=== PATIENT | male | born 1935 | race Caucasian/White ===

== ENCOUNTER 2018-06-24 04:43 | Inpatient (IN) | payer MEDICARE ==
[2018-06-24] MEDS ORDERED: PNEUMONIA PROTOCOL UTILIZED 1 EACH MISC PO PRN (04:55)
[2018-06-24] MEDS ORDERED: SODIUM CHLORIDE 0.9% 1,000 ML IV ONE (05:09)
[2018-06-24] MEDS: SODIUM CHLORIDE 0.9% 1,000 ML IV SCH (05:12)
[2018-06-24] MEDS ORDERED: ALBUTEROL NEBULIZED 2.5 MG/3 ML INHALATION PRN (05:17)
[2018-06-24] MEDS ORDERED: VANCOMYCIN IV PER PHARMACY 1 EACH MISC MISCELLANE PRN (05:19)
[2018-06-24] MEDS ORDERED: LEVOFLOXACIN 750MG-D5W PMX 750 MG in DEXTROSE/WATER 1 150ML.BAG IVPB SCH (06:00)
[2018-06-24] MEDS ORDERED: VANCOMYCIN 1,000 MG in SODIUM CHLORIDE 0.9% 250 ML IVPB ONE (06:00)
[2018-06-24] MEDS ORDERED: DILTIAZEM DRIP BOLUS FROM BAG 1 MG SOLN IV ONE (06:07)
[2018-06-24] MEDS ORDERED: ENOXAPARIN 60 MG/0.6 ML SYRINGE SQ STA (06:09)
[2018-06-24] MEDS ORDERED: DILTIAZEM 50 MG in SODIUM CHLORIDE 0.9% 40 ML IV SCH (06:15)
--- NOTE | 2018-06-24 06:15 | ED ---
SOB HPI - General Source: EMS Mode of arrival: EMS Limitations: altered mental status (Dementia versus delirium) - History of Present Illness MD Complaint: shortness of breath Onset/Timin -: days(s) Known History Of: COPD Treatments Prior to Arrival: oxygen, bronchodilator, other (antibiotics) <Juan J العراقي - Last Filed: 06/24/18 06:15> <Fabian Rogel - Last Filed: 06/29/18 15:50> - General Chief Complaint: Shortness of Breath Stated Complaint: Pneumonia Time Seen by Provider: 06/24/18 04:48 - History of Present Illness Initial Comments: This patient is an 83-year-old man sent here as a transfer from [facility] to be admitted for bilateral pneumonia. The patient had been transferred there from medical [place]. He has history of COPD, and reportedly had developed respiratory distress over the course of the evening. The patient does appear to have either underlying dementia or delirium and is not giving useful history. He is not able to give duration of symptoms. He is mainly able answer only if couple of yes or no questions. Patient denies pain at the moment. (Juan J العراقي) - Related Data Home Medications Medication Instructions Recorded Confirmed ALPRAZolam [Xanax] 0.25 mg PO TID PRN 06/24/18 06/24/18 Acetaminophen with Codeine 1 tab PO Q4H PRN 06/24/18 06/24/18 [Tylenol w/codeine #3] Ammonium Lactate Lotion 1 applic TOPICAL HS 06/24/18 06/24/18 [Lac-Hydrin 12% Lotion] Atorvastatin [Lipitor] 40 mg PO HS 06/24/18 06/24/18 Budesonide [Pulmicort] 0.5 mg INHALATION RT-DAILY 06/24/18 06/24/18 Citalopram Hydrobromide [CeleXA] 20 mg PO DAILY 06/24/18 06/24/18 Clopidogrel [Plavix] 75 mg PO HS 06/24/18 06/24/18 Famotidine [Pepcid] 20 mg PO DAILY 06/24/18 06/24/18 Finasteride [Proscar] 5 mg PO DAILY 06/24/18 06/24/18 Furosemide [Lasix] 40 mg PO BID@0600,1200 06/24/18 06/24/18 Ipratropium-Albuterol Nebulize 3 ml INHALATION RT-QID 06/24/18 06/24/18 [Duoneb 0.5 mg-3 mg/3 ml Soln] Lactulose 20 gm PO BID@0800,2000 06/24/18 06/24/18 Lisinopril [Zestril] 2.5 mg PO DAILY 06/24/18 06/24/18 Metoprolol Succinate [Toprol XL] 25 mg PO DAILY 06/24/18 06/24/18 Mirtazapine [Remeron] 15 mg PO HS 06/24/18 06/24/18 Montelukast [Singulair] 10 mg PO HS 06/24/18 06/24/18 Spironolactone [Aldactone] 25 mg PO DAILY 06/24/18 06/24/18 Tamsulosin [Flomax] 0.4 mg PO DAILY 06/24/18 06/24/18 Allergies Allergy/AdvReac Type Severity Reaction Status Date / Time No Known Allergies Allergy Verified 06/24/18 08:46 Review of Systems ROS Other: All systems not noted in ROS Statement are negative. Limitations: ROS unobtainable due to patients medical condition (Dementia versus delirium) <Juan J العراقي - Last Filed: 06/24/18 06:15> ROS Other: All systems not noted in ROS Statement are negative. <Fabian Rogel - Last Filed: 06/29/18 15:50> ROS Statement: Those systems with pertinent positive or pertinent negative responses have been documented in the HPI. Past Medical History Past Medical History: Coronary Artery Disease (CAD), Heart Failure, COPD, CVA/ TIA, Hyperlipidemia, Hypertension, Renal Disease Additional Past Medical History / Comment(s): Malnutrition, hyponatremia History of Any Multi-Drug Resistant Organisms: None Reported Past Surgical History: No Surgical Hx Reported Past Psychological History: Anxiety, Depression Smoking Status: Unknown if ever smoked Past Alcohol Use History: Unable to Obtain Past Drug Use History: Unable to Obtain <Juan J العراقي - Last Filed: 06/24/18 06:15> - Past Family History Mother Family Medical History: Osteoarthritis (OA) Additional Family Medical History / Comment(s): at 86 from CVA Father Family Medical History: No Reported History Additional Family Medical History / Comment(s): Father young in a construction accident. <Fabian Rogel [place] - Last Filed: 06/29/18 15:50> General Exam Limitations: language barrier General appearance: alert, in distress, cachectic Head exam: Present: atraumatic, normocephalic Eye exam: Present: normal appearance, PERRL. Absent: scleral icterus, conjunctival injection ENT exam: Present: mucous membranes dry Neck exam: Present: normal inspection Respiratory exam: Present: rales, rhonchi. Absent: respiratory distress, wheezes, stridor, accessory muscle use, decreased breath sounds Cardiovascular Exam: Present: regular rate, normal rhythm, normal heart sounds. Absent: systolic murmur, diastolic murmur, rubs, gallop GI/Abdominal exam: Present: soft. Absent: distended, tenderness, guarding, rebound, mass exam: Present: other (Berry catheter present) Extremities exam: Present: normal inspection, normal capillary refill. Absent: pedal edema Neurological exam: Present: altered, CN II-XII intact. Absent: oriented X3 Skin exam: Present: warm, dry, intact, normal color. Absent: rash <Juan J العراقي - Last Filed: 06/24/18 06:15> Vital Signs 06/24/18 06/24/18 06/24/18 04:45 04:49 04:50 Temperature 98.5 F Pulse Rate 78 77 78 Respiratory 20 29 H 28 H Rate Blood Pressure 90/47 O2 Sat by Pulse 95 94 L 95 Oximetry 06/24/18 06/24/18 06/24/18 05:00 05:06 05:10 Temperature Pulse Rate 75 76 Respiratory 26 H 20 30 H Rate Blood Pressure 90/47 90/47 O2 Sat by Pulse 95 94 L Oximetry 06/24/18 06/24/18 06/24/18 05:20 05:30 05:40 Temperature Pulse Rate 72 74 72 Respiratory 27 H 22 28 H Rate Blood Pressure 90/47 90/47 90/47 O2 Sat by Pulse 93 L 100 100 Oximetry 06/24/18 06/24/18 06/24/18 05:50 06:00 06:10 Temperature Pulse Rate 105 H 121 H 138 H Respiratory 22 24 37 H Rate Blood Pressure 90/47 90/47 O2 Sat by Pulse 92 L Oximetry 1006/24/18 06/24/18 06:20 06:30 06:40 Temperature Pulse Rate 120 H 125 H 142 H Respiratory 27 H 28 H 27 H Rate Blood Pressure 90/47 90/47 90/47 O2 Sat by Pulse 91 L 91 L 91 L Oximetry 06/24/18 06/24/18 06/24/18 06:50 06:55 07:00 Temperature Pulse Rate 130 H 112 H 152 H Respiratory 26 H 18 21 Rate Blood Pressure 90/47 83/46 77/58 O2 Sat by Pulse 89 L 91 L 90 L Oximetry 06/24/18 06/24/18 06/24/18 07:10 07:20 07:24 Temperature Pulse Rate 131 H 112 H Respiratory 27 H 18 Rate Blood Pressure 83/46 89/59 89/59 O2 Sat by Pulse 91 L 92 L Oximetry 06/24/18 06/24/18 06/24/18 07:30 07:35 07:40 Temperature Pulse Rate 141 H 129 H 138 H Respiratory 17 30 H Rate Blood Pressure 89/59 88/51 O2 Sat by Pulse 93 L 94 L Oximetry 06/24/18 06/24/18 06/24/18 08:18 10:00 10:13 Temperature Pulse Rate 138 H Respiratory 30 H 16 Rate Blood Pressure 88/51 94/60 93/53 O2 Sat by Pulse 94 L 96 97 Oximetry 06/24/18 06/24/18 06/24/18 10:20 10:38 11:30 Temperature Pulse Rate 69 Respiratory 22 Rate Blood Pressure 113/53 78/54 108/91 O2 Sat by Pulse 96 100 Oximetry Procedures - Central Line Placement Left IJ Consent Obtained: emergent situation Time Out Performed: Yes Patient Placed on Monitor/Pulse Ox: Yes MD Prep: mask, gown, gloves Central Line Prep: Povidone-Iodine 1% Local Anesthesia Used: Lidocaine 1%, with Epi Ultrasound Used for Placement: Yes Central Line Lumen Inserted: triple Bloods Obtained for Lab: No Central Line Position: good blood return Dressing Applied: Tegaderm Post Procedure X-Ray: tip of catheter in good position Patient Tolerated Procedure: well Complications: none <Fabian Rogel - Last Filed: 06/29/18 15:50> Medical Decision Making <Juan J العراقي - Last Filed: 06/24/18 06:15> - Lab Data Result diagrams: 06/29/18 04:50 06/29/18 04:50 <Fabian Rogel - Last Filed: 06/29/18 15:50> - Medical Decision Making Patient's transfer paperwork reviewed. Case discussed with Dr. Brandie swann who is listed as his PCP. He requests admission to Dr. Zamudio, as well as consult for Dr. Ferrer. Admission orders are written. The patient is pending transfer to a room when he did develop atrial fibrillation with a rapid ventricular rate. An additional cardiology consultation will be obtained. Started on Cardizem for rate control. (Juan J العراقي) Patient was admitted awaiting disposition to floor. Patient was admitted for bilateral pneumonia. While patient was in the emergency department awaiting bed patient became hypotensive. Patient's initial vital signs on arrival show blood pressure 89/59. Patient was not hypoxic. He didn't went into rapid tachycardia dysrhythmia. Monitor appeared to be consistent with atrial fibrillation with RVR. He was placed on Cardizem drip by previous physician for rate control. He did not receive infusion however did get a small bolus. Cardizem was DC'd. Cardizem was DC'd likely because patient stated rapid ventricular rate in order to maintain adequate perfusion in the setting of infection. Patient was moved into resuscitation bay. Patient given 1 L of fluid to complete the 30 mL per KG bolus of IV fluids. Patient continued to be hypotensive despite fluid resuscitation. Dribbling catheter was placed in the left internal jugular in anticipation for pressor administration. Patient disposition changed to intensive care unit. Discussed patient case with Dr. Mccloud who requests Dr. HIGH placed on consult for critical care. Suspicion case with Dr. Carver who is aware patient. Patient to be disposition to intensive care unit (Fabian Rogel) Disposition <Juan J العراقي - Last Filed: 06/24/18 06:15> Decision Time: 15:50 <Fabian Rogel - Last Filed: 06/29/18 15:50> Clinical Impression: Septic shock Disposition: ADMITTED IP TO THIS HOSP Condition: Serious
[2018-06-24] MEDS: IPRATROPIUM-ALBUTEROL 3 ML NEB INHALATION SCH ×4 (07:20→19:51)
[2018-06-24] MEDS ORDERED: PIPERACILLIN-TAZOBACTAM 3.375 GM in DEXTROSE/WATER 1 50ML.BAG IVPB SCH (08:00)
[2018-06-24 09:04] LABS: ABG Base Excess 3.9 mmol/L; ABG HCO3 30 mmol/L (21-25); ABG Oxygen Saturation 92.4 % (94-97); ABG PCO2 58 mmHg (35-45); ABG PH 7.32 (7.35-7.45); ABG PO2 68 mmHg (83-108); ABG TCO2 32 mmol/L (19-24)
--- NOTE | 2018-06-24 09:09 | XR ---
EXAMINATION TYPE: XR chest 1V DATE OF EXAM: 06/24/2018 COMPARISON: NONE HISTORY: Pain TECHNIQUE: Single frontal view of the chest is obtained. FINDINGS: Bilateral consolidation and pleural effusion. Hyperinflation suggests COPD. Appears to be hyperdensity along the vertebral column. Calcified granuloma right upper lobe. Calcified lymph nodes are noted. IMPRESSION: 1. Diffuse COPD with bilateral consolidation and pleural effusion. There is either contrast or calcif ication overlying the mid vertebral column correlate clinically. Recommend follow-up PA and lateral v iews of the chest..
[2018-06-24] MEDS: NOREPINEPHRINE 16 MG in SODIUM CHLORIDE 0.9% 250 ML IV SCH ×2 (09:32→13:36)
--- NOTE | 2018-06-24 10:12 | P.CNPUL ---
History of Present Illness Consult date: 06/24/18 Reason for consult: dyspnea, cough, COPD, hypoxemia, pneumonia Chief complaint: Pneumonia, severe hypoxia, hypotension History of present illness: 83-year-old male who is a resident of extended care facility admitted a large has baseline problems associated with chronic hypoxic respiratory failure end- stage lung disease and severe COPD emphysema patient was noted to be more short of breath and has a confusion and altered mental status and was eventually transferred to [facility] emergency department where he was seen eval reexamined subsequently transferred to the emergency department at [facility] on arrival he was hypotensive treated require crystalloid challenge followed by a vasopressors a central line has been placed by the emergency room physician patient is being placed on the 10 mics of levo fed his blood pressure is now 90/ 60 patient's saturation is 98% on 6 L oxygen, he is awake but the does not give any detailed history he has obvious short leg shortness of breath I reviewed his arterial blood gas performed stat basis he has component of hypercapnia and respiratory acidosis, his chest x-ray revealed COPD-like process of bilateral consolidation along with pleural effusion, pleural effusion appears to be small consolidation is mostly on the basal area central line in his left internal jugular, patient had an episode of A. fib with rapid ventricular response however responded with Cardizem drip and is back to sinus rhythm Review of Systems ROS unobtainable: due to mental status Past Medical History Past Medical History: Asthma, Coronary Artery Disease (CAD), Heart Failure, COPD , CVA/TIA, Hyperlipidemia, Hypertension, Prostate Disorder, Renal Disease, Skin Disorder Additional Past Medical History / Comment(s): Daughter, Mandi, states pt recently admitted to [facility] with abdominal distention/ascities/hematuria and had peck catheter placed. Other Hx: Asthma, bronchitis, pulmonary fibrosis, sinus problems, O2 3l/nc, AAA low aorta, PMH documents CVA but ankita is unsure if he ever had one, recent shaking-was to have neuro work up, BPH, CKD stage IV, psoriasis, protein calorie malnutrition, hyponatremia. History of Any Multi-Drug Resistant Organisms: None Reported Past Surgical History: Ear Surgery, Heart Catheterization With Stent Additional Past Surgical History / Comment(s): 2010 PCI with stent to cx, bilateral cataract removals, L eye surgery for detached retina, L ear surgery for meniere's disease, colonoscopy, L knee arthroscopy. Additional Past Anesthesia/Blood Transfusion Reaction / Comment(s): [facility] documents respiratory difficulty post operatively Date of Last Stent Placement:: 2010 Smoking Status: Former smoker - Past Family History Mother Family Medical History: Osteoarthritis (OA) Father Family Medical History: No Reported History Additional Family Medical History / Comment(s): Father young in a construction accident. Medications and Allergies Home Medications Medication Instructions Recorded Confirmed Type ALPRAZolam [Xanax] 0.25 mg PO TID PRN 06/24/18 06/24/18 History Acetaminophen with Codeine 1 tab PO Q4H PRN 06/24/18 06/24/18 History [Tylenol w/codeine #3] Ammonium Lactate Lotion 1 applic TOPICAL HS 06/24/18 06/24/18 History [Lac-Hydrin 12% Lotion] Atorvastatin [Lipitor] 40 mg PO HS 06/24/18 06/24/18 History Budesonide [Pulmicort] 0.5 mg INHALATION RT-DAILY 06/24/18 06/24/18 History Citalopram Hydrobromide [CeleXA] 20 mg PO DAILY 06/24/18 06/24/18 History Clopidogrel [Plavix] 75 mg PO HS 06/24/18 06/24/18 History Famotidine [Pepcid] 20 mg PO DAILY 06/24/18 06/24/18 History Finasteride [Proscar] 5 mg PO DAILY 06/24/18 06/24/18 History Furosemide [Lasix] 40 mg PO BID@0600,1200 06/24/18 06/24/18 History Ipratropium-Albuterol Nebulize 3 ml INHALATION RT-QID 06/24/18 06/24/18 History [Duoneb 0.5 mg-3 mg/3 ml Soln] Lactulose 20 gm PO BID@0800,2000 06/24/18 06/24/18 History Lisinopril [Zestril] 2.5 mg PO DAILY 06/24/18 06/24/18 History Metoprolol Succinate [Toprol XL] 25 mg PO DAILY 06/24/18 06/24/18 History Mirtazapine [Remeron] 15 mg PO HS 06/24/18 06/24/18 History Montelukast [Singulair] 10 mg PO HS 06/24/18 06/24/18 History Spironolactone [Aldactone] 25 mg PO DAILY 06/24/18 06/24/18 History Tamsulosin [Flomax] 0.4 mg PO DAILY 06/24/18 06/24/18 History Allergies Allergy/AdvReac Type Severity Reaction Status Date / Time No Known Allergies Allergy Verified 06/24/18 08:46 Physical Exam Vitals: Vital Signs Temp Pulse Resp BP Pulse Ox 06/24/18 08:18 138 H 30 H 88/51 94 L 06/24/18 07:40 138 H 30 H 88/51 94 L 06/24/18 07:35 129 H 06/24/18 07:30 141 H 17 89/59 93 L 06/24/18 07:24 89/59 06/24/18 07:20 112 H 18 89/59 92 L 06/24/18 07:10 131 H 27 H 83/46 91 L 06/24/18 07:00 152 H 21 77/58 90 L 06/24/18 06:55 112 H 18 83/46 91 L 06/24/18 06:50 130 H 26 H 90/47 89 L 06/24/18 06:40 142 H 27 H 90/47 91 L 06/24/18 06:30 125 H 28 H 90/47 91 L 06/24/18 06:20 120 H 27 H 90/47 91 L 06/24/18 06:10 138 H 37 H 90/47 92 L 06/24/18 06:00 121 H 24 06/24/18 05:50 105 H 22 90/47 06/24/18 05:40 72 28 H 90/47 100 06/24/18 05:30 74 22 90/47 100 06/24/18 05:20 72 27 H 90/47 93 L 06/24/18 05:10 76 30 H 90/47 94 L 06/24/18 05:06 20 06/24/18 05:00 75 26 H 90/47 95 06/24/18 04:50 78 28 H 95 06/24/18 04:49 77 29 H 94 L 06/24/18 04:45 98.5 F 78 20 90/47 95 Intake and Output 06/23/18 06/24/18 06/24/18 22:59 06:59 14:59 Other: Weight 49.2 kg - Constitutional General appearance: cooperative, disheveled, mild distress - EENT Eyes: EOMI, PERRLA, poor dentition, normal appearance ENT: hard of hearing, normal oropharynx Ears: bilateral: normal - Neck Neck: normal ROM Carotids: bilateral: upstroke normal Thyroid: bilateral: normal size - Respiratory Respiratory: bilateral: diminished, dullness (Bilateral basis less than one fourth of the lung), rales (Crackles at the bases), rhonchi (Expiratory), wheezing (Bilateral expiratory), prolonged expiration, negative: prolonged inspiration, other - Cardiovascular Rhythm: regular Heart sounds: normal: S1, S2 - Gastrointestinal General gastrointestinal: soft - Neurologic Neurologic: CNII-XII intact - Musculoskeletal Musculoskeletal: generalized weakness, strength equal bilaterally - Psychiatric Psychiatric: A&O x's 3 Very slow to respond Results - Laboratory Findings ABG ABG pH 7.32 (7.35-7.45) L 06/24/18 08:55 ABG pCO2 58 mmHg (35-45) H 06/24/18 08:55 ABG pO2 68 mmHg (83-108) L 06/24/18 08:55 ABG O2 Saturation 92.4 % (94-97) L 06/24/18 08:55 Abnormal lab findings: Abnormal Labs 06/24/18 08:55 ABG pH 7.32 L ABG pCO2 58 H ABG pO2 68 L ABG HCO3 30 H ABG Total CO2 32 H ABG O2 Saturation 92.4 L - Diagnostic Findings Chest x-ray: report reviewed, image reviewed Assessment and Plan Assessment: Bilateral pneumonia Severe sepsis associated with bilateral pneumonia and septic shock Evaluated for influenza pneumonia Altered mental status multifactorial process Hypercapnic hypoxic respiratory failure acute on chronic A. fib with rapid ventricular response likely related to above Advanced dementia and Alzheimer's disease Plan: Aggressive rehydration Vasopressors Broad spectrum antibiotics Breathing treatments IV steroids DVT and peptic ulcer disease prophylaxis Repeat labs x-rays Further recommendations pending plan of care as per clinical response of the patient Critical care time spent 60 minutes Time with Patient: Greater than 30
[2018-06-24] MEDS ORDERED: PANTOPRAZOLE 40 MG/10 ML VIAL IVP SCH (10:30)
[2018-06-24 10:59] LABS: Calcium 7.9 mg/dL (8.4-10.2); Potassium 3.7 mmol/L (3.5-5.1)
--- NOTE | 2018-06-24 11:10 | XR ---
EXAMINATION TYPE: XR chest 1V DATE OF EXAM: 06/24/2018 COMPARISON: 06/14/2018 HISTORY: Pneumonia. Shortness of breath. Follow-up exam. TECHNIQUE: Single frontal view of the chest is obtained. FINDINGS: There is pulmonary hyperinflation compatible with underlying COPD with confluent bibasilar opacities similar to the prior. Bilateral calcified granulomas are redemonstrated. Cardiomediastinal silhouette is elongated and within normal limits. Left-sided internal jugular central venous cathete r terminates in the cavoatrial junction. Calcified mediastinal granulomas are also seen. There are de generative changes of the shoulders and thoracic spine that appear moderate in degree. IMPRESSION: Stable exam from the prior with bibasilar opacities superimposed upon COPD. Findings are suspicious for multifocal pneumonia given their confluence.
--- NOTE | 2018-06-24 11:18 | P.CRDCN ---
History of Present Illness Consult date: 06/24/18 Chief complaint: Shortness of breath/change in mental status History of present illness: The patient is an 83-year-old gentleman who was transferred from [facility] to [facility] after he was diagnosed with bilateral pneumonia at [facility]. Currently the patient is on BiPAP and he is confused and poor historian and the history was taken mainly from the chart as well as from the nurse taking care of the patient. The patient does have an extensive past medical history consistent off advanced chronic obstructive pulmonary disease as well as chronic respiratory failure and he resides at an extended care facility. Beside that he does have underlying dementia, coronary artery disease, hypertension, and dyslipidemia. He was quite more short of breath at the [facility] care facility and he was also having change in mental status as well as delirium. No indication of any fever or chills. No indication of any cough. He was brought to the emergency room at [facility] where the chest x-ray showed bilateral pneumonia and then he was transferred here. In the emergency room here, the patient was found to be in A. fib with RVR and also he was hypotensive. He was started on vasopressors was Levophed and he continues to be on Levothroid at this point. He was converted to normal sinus mechanism and currently his heart rate has been in the 70s. The chest x-ray from here revealed findings consistent with COPD with bilateral pleural effusion. Beside that, the initial EKG showed atrial fibrillation with RVR and the subsequent EKG showed normal sinus mechanism. There is no indication of any history of atrial fibrillation in the chart and also the patient was not receiving any oral anticoagulation as an outpatient. The patient is in process of being transferred to the intensive care unit, currently the patient is in the emergency room. Currently he is on Cardizem IV which I am going to [place]. I will start the patient on amiodarone with bolus and drip. Start the patient on heparin IV as well. Obtain an echocardiogram was Doppler. Continue following up with him. Past Medical History Past Medical History: Asthma, Coronary Artery Disease (CAD), Heart Failure, COPD , CVA/TIA, Hyperlipidemia, Hypertension, Prostate Disorder, Renal Disease, Skin Disorder Additional Past Medical History / Comment(s): Daughter, Mandi, states pt recently admitted to [facility] with abdominal distention/ascities/hematuria and had peck catheter placed. Other Hx: Asthma, bronchitis, pulmonary fibrosis, sinus problems, O2 3l/nc, AAA low aorta, PMH documents CVA but ankita is unsure if he ever had one, recent shaking-was to have neuro work up, BPH, CKD stage IV, psoriasis, protein calorie malnutrition, hyponatremia. History of Any Multi-Drug Resistant Organisms: None Reported Past Surgical History: Ear Surgery, Heart Catheterization With Stent Additional Past Surgical History / Comment(s): 2010 PCI with stent to cx, bilateral cataract removals, L eye surgery for detached retina, L ear surgery for meniere's disease, colonoscopy, L knee arthroscopy. Additional Past Anesthesia/Blood Transfusion Reaction / Comment(s): PMH documents respiratory difficulty post operatively Date of Last Stent Placement:: 2010 Smoking Status: Former smoker - Past Family History Mother Family Medical History: Osteoarthritis (OA) Father Family Medical History: No Reported History Additional Family Medical History / Comment(s): Father young in a construction accident. Medications and Allergies Home Medications Medication Instructions Recorded Confirmed Type ALPRAZolam [Xanax] 0.25 mg PO TID PRN 06/24/18 06/24/18 History Acetaminophen with Codeine 1 tab PO Q4H PRN 06/24/18 06/24/18 History [Tylenol w/codeine #3] Ammonium Lactate Lotion 1 applic TOPICAL HS 06/24/18 06/24/18 History [Lac-Hydrin 12% Lotion] Atorvastatin [Lipitor] 40 mg PO HS 06/24/18 06/24/18 History Budesonide [Pulmicort] 0.5 mg INHALATION RT-DAILY 06/24/18 06/24/18 History Citalopram Hydrobromide [CeleXA] 20 mg PO DAILY 06/24/18 06/24/18 History Clopidogrel [Plavix] 75 mg PO HS 06/24/18 06/24/18 History Famotidine [Pepcid] 20 mg PO DAILY 06/24/18 06/24/18 History Finasteride [Proscar] 5 mg PO DAILY 06/24/18 06/24/18 History Furosemide [Lasix] 40 mg PO BID@0600,1200 06/24/18 06/24/18 History Ipratropium-Albuterol Nebulize 3 ml INHALATION RT-QID 06/24/18 06/24/18 History [Duoneb 0.5 mg-3 mg/3 ml Soln] Lactulose 20 gm PO BID@0800,199906/24/18 06/24/18 History Lisinopril [Zestril] 2.5 mg PO DAILY 06/24/18 06/24/18 History Metoprolol Succinate [Toprol XL] 25 mg PO DAILY 06/24/18 06/24/18 History Mirtazapine [Remeron] 15 mg PO HS 06/24/18 06/24/18 History Montelukast [Singulair] 10 mg PO HS 06/24/18 06/24/18 History Spironolactone [Aldactone] 25 mg PO DAILY 06/24/18 06/24/18 History Tamsulosin [Flomax] 0.4 mg PO DAILY 06/24/18 06/24/18 History Allergies Allergy/AdvReac Type Severity Reaction Status Date / Time No Known Allergies Allergy Verified 06/24/18 08:46 Physical Exam Vitals: Vital Signs Temp Pulse Resp BP Pulse Ox 06/24/18 10:38 69 22 78/54 100 06/24/18 10:20 113/53 96 06/24/18 10:13 16 93/53 97 06/24/18 10:00 94/60 96 06/24/18 08:18 138 H 30 H 88/51 94 L 06/24/18 07:40 138 H 30 H 88/51 94 L 06/24/18 07:35 129 H 06/24/18 07:30 141 H 17 89/59 93 L 06/24/18 07:24 89/59 06/24/18 07:20 112 H 18 89/59 92 L 06/24/18 07:10 131 H 27 H 83/46 91 L 06/24/18 07:00 152 H 21 77/58 90 L 06/24/18 06:55 112 H 18 83/46 91 L 06/24/18 06:50 130 H 26 H 90/47 89 L 06/24/18 06:40 142 H 27 H 90/47 91 L 06/24/18 06:30 125 H 28 H 90/47 91 L 06/24/18 06:20 120 H 27 H 90/47 91 L 06/24/18 06:10 138 H 37 H 90/47 92 L 06/24/18 06:00 121 H 24 06/24/18 05:50 105 H 22 90/47 06/24/18 05:40 72 28 H 90/47 100 06/24/18 05:30 74 22 90/47 100 06/24/18 05:20 72 27 H 90/47 93 L 06/24/18 05:10 76 30 H 90/47 94 L 06/24/18 05:06 20 06/24/18 05:00 75 26 H 90/47 95 06/24/18 04:50 78 28 H 95 06/24/18 04:49 77 29 H 94 L 06/24/18 04:45 98.5 F 78 20 90/47 95 Intake and Output 06/23/18 06/24/18 06/24/18 22:59 06:59 14:59 Other: Weight 49.2 kg - Constitutional General appearance: mild distress - Respiratory Respiratory: bilateral: diminished - Cardiovascular Rhythm: regular Heart sounds: normal: S1, S2 Results 06/24/18 07:31 Comprehensive Metabolic Panel 06/24/18 Range/Units 07:31 Sodium 143 (137-145) mmol/L Potassium 3.7 (3.5-5.1) mmol/L Chloride 106 (98-107) mmol/L Carbon Dioxide 29 (22-30) mmol/L BUN 78 H (9-20) mg/dL Creatinine 1.38 H (0.66-1.25) mg/dL Glucose 148 H (74-99) mg/dL Calcium 7.9 L (8.4-10.2) mg/dL Current Medications Generic Name Dose Route Start Last Admin Trade Name Freq PRN Reason Stop Dose Admin Albuterol Sulfate 2.5 mg 06/24/18 05:17 Ventolin Nebulized INHALATION RT-Q4H PRN Shortness Of Breath Or Wheezing Albuterol/Ipratropium 3 ml 06/24/18 08:00 06/24/18 07:20 Duoneb 0.5 Mg-3 Mg/3 Ml Soln INHALATION 3 ml RT-QID RITIKA Administration Budesonide 0.5 mg 06/24/18 20:00 Pulmicort INHALATION RT-BID RITIKA Heparin Sodium (Porcine) 5,000 unit 06/24/18 21:00 Heparin SQ Q12HR RITIKA Sodium Chloride 1,000 mls @ 20 mls/hr 06/24/18 05:00 06/24/18 05:12 Saline 0.9% IV 20 mls/hr .Q24H RITIKA Administration Levofloxacin 750 mg/ IV 150 mls @ 100 mls/hr 06/24/18 06:00 06/24/18 06:49 Solution IVPB 07/07/18 06:01 100 mls/hr Q24H RITIKA Administration Piperacillin/Tazobactam/ 50 mls @ 12.5 mls/hr 06/24/18 08:00 Dextrose 3.375 gm/ IV Solution IVPB 07/04/18 08:01 Q8HR RITIKA Diltiazem HCl 50 mg/ Sodium 50 mls @ 5 mls/hr 06/24/18 06:15 06/24/18 06:36 Chloride IV 5 mg/hr .Q10H RITIKA 5 mls/hr Administration 5 MG/HR Norepinephrine Bitartrate 16 250 mls @ 0 mls/hr 06/24/18 08:45 06/24/18 09:32 mg/ Sodium Chloride IV 10 mcg/min .Q0M RITIKA 9.37 mls/hr Administration Protocol Titrate Methylprednisolone Sodium Succinate 40 mg 06/24/18 10:15 Solu-Medrol IV Q12HR RITIKA Miscellaneous Information 1 each 06/24/18 04:55 Pneumonia Protocol Utilized PO ONCE PRN Per Protocol Miscellaneous Information 1 each 06/24/18 05:19 Pharmacy To Dose Iv Vancomycin MISCELLANE DIRECTED PRN Per Protocol Pantoprazole Sodium 40 mg 06/24/18 10:30 Protonix IVP DAILY RITIKA Intake and Output 06/23/18 06/24/18 06/24/18 22:59 06:59 14:59 Other: Weight 49.2 kg 06/24/18 07:31 Assessment and Plan Assessment: Assessment #1 acute hypoxic respiratory failure #2 COPD exacerbation #3 bilateral pneumonia #4 known advanced COPD #5 known chronic respiratory failure #6 paroxysmal atrial fibrillation #7 coronary artery disease "by history" #8 hypertension #9 dyslipidemia #10 underlying dementia Plan #1 DC Cardizem IV in view of the low blood pressure and hemodynamic instability #2 start the patient on amiodarone IV #3 start the patient on heparin IV #4 obtain an echocardiogram was Doppler #5 the right wean him from the vasopressors #6 follow up with the patient Thank you for allowing us participate in his care and we'll continue following up with the patient
--- NOTE | 2018-06-24 11:42 | P.CNPUL ---
History of Present Illness Consult date: 06/24/18 Requesting physician: Femi Canales Reason for consult: hypoxemia, pneumonia, other (known patient) Chief complaint: shortness of breath History of present illness: This is an 83-year-old patient well-known to our services, being seen examined and evaluated for pulmonary consultation. This patient was recently admitted at [facility] from 06/13/2018 to 06/19/2018. During that admission he was being treated for CHF, COPD, ascites, hyponatremia as well as chronic kidney disease stage III, he was discharged to [facility] after his hospitalization. He was sent to [facility] for respiratory distress. The patient came in to the emergency room from [facility] for transfer for respiratory distress and bilateral pneumonia. The patient was worked up in the ER and is very hard of hearing as well as a poor historian. While being worked up in the ER for his admission the patient did go into A. fib with RVR and did have some hypotension. He was given 1 L of fluid bolus in the ER, he ultimately required a central line placement as well as vasopressors. Consult was placed for Dr. Carver for ICU management. His chest x-ray did reveal COPD as well as bilateral consolidation along with pleural effusions. ABGs did reveal a pH of 7.3 to, pCO2 58, pO2 of 68, HCO3 of 30, he did have a component of hypercapnia, hypoxia and respiratory acidosis. Lactic acid was 1. Upon examination the patient is lethargic continues on supplemental oxygen. Blood pressures are being maintained with vasopressors. He is very hard of hearing. Review of Systems 14 point review of systems was completed to the best of ability and as noted above. Noted the patient does have underlying severe hard of hearing and some possible dementia Past Medical History Past Medical History: Asthma, Coronary Artery Disease (CAD), Heart Failure, COPD , CVA/TIA, Hyperlipidemia, Hypertension, Prostate Disorder, Renal Disease, Skin Disorder Additional Past Medical History / Comment(s): Daughter, Mandi, states pt recently admitted to [facility] with abdominal distention/ascities/hematuria and had peck catheter placed. Other Hx: Asthma, bronchitis, pulmonary fibrosis, sinus problems, O2 3l/nc, AAA low aorta, PMH documents CVA but ankita is unsure if he ever had one, recent shaking-was to have neuro work up, BPH, CKD stage IV, psoriasis, protein calorie malnutrition, hyponatremia. History of Any Multi-Drug Resistant Organisms: None Reported Past Surgical History: Ear Surgery, Heart Catheterization With Stent Additional Past Surgical History / Comment(s): 2010 PCI with stent to cx, bilateral cataract removals, L eye surgery for detached retina, L ear surgery for meniere's disease, colonoscopy, L knee arthroscopy. Additional Past Anesthesia/Blood Transfusion Reaction / Comment(s): PMH documents respiratory difficulty post operatively Date of Last Stent Placement:: 2010 Smoking Status: Former smoker - Past Family History Mother Family Medical History: Osteoarthritis (OA) Father Family Medical History: No Reported History Additional Family Medical History / Comment(s): Father young in a construction accident. Medications and Allergies Home Medications Medication Instructions Recorded Confirmed Type ALPRAZolam [Xanax] 0.25 mg PO TID PRN 06/24/18 06/24/18 History Acetaminophen with Codeine 1 tab PO Q4H PRN 06/24/18 06/24/18 History [Tylenol w/codeine #3] Ammonium Lactate Lotion 1 applic TOPICAL HS 06/24/18 06/24/18 History [Lac-Hydrin 12% Lotion] Atorvastatin [Lipitor] 40 mg PO HS 06/24/18 06/24/18 History Budesonide [Pulmicort] 0.5 mg INHALATION RT-DAILY 06/24/18 06/24/18 History Citalopram Hydrobromide [CeleXA] 20 mg PO DAILY 06/24/18 06/24/18 History Clopidogrel [Plavix] 75 mg PO HS 06/24/18 06/24/18 History Famotidine [Pepcid] 20 mg PO DAILY 06/24/18 06/24/18 History Finasteride [Proscar] 5 mg PO DAILY 06/24/18 06/24/18 History Furosemide [Lasix] 40 mg PO BID@0600,1200 06/24/18 06/24/18 History Ipratropium-Albuterol Nebulize 3 ml INHALATION RT-QID 06/24/18 06/24/18 History [Duoneb 0.5 mg-3 mg/3 ml Soln] Lactulose 20 gm PO BID@0800,2000 06/24/18 06/24/18 History Lisinopril [Zestril] 2.5 mg PO DAILY 06/24/18 06/24/18 History Metoprolol Succinate [Toprol XL] 25 mg PO DAILY 06/24/18 06/24/18 History Mirtazapine [Remeron] 15 mg PO HS 06/24/18 06/24/18 History Montelukast [Singulair] 10 mg PO HS 06/24/18 06/24/18 History Spironolactone [Aldactone] 25 mg PO DAILY 06/24/18 06/24/18 History Tamsulosin [Flomax] 0.4 mg PO DAILY 06/24/18 06/24/18 History Allergies Allergy/AdvReac Type Severity Reaction Status Date / Time No Known Allergies Allergy Verified 06/24/18 08:46 Physical Exam Vitals: Vital Signs Temp Pulse Resp BP Pulse Ox 06/24/18 10:38 69 22 78/54 100 06/24/18 10:20 113/53 96 06/24/18 10:13 16 93/53 97 06/24/18 10:00 94/60 96 06/24/18 08:18 138 H 30 H 88/51 94 L 06/24/18 07:40 138 H 30 H 88/51 94 L 06/24/18 07:35 129 H 06/24/18 07:30 141 H 17 89/59 93 L 06/24/18 07:24 89/59 06/24/18 07:20 112 H 18 89/59 92 L 06/24/18 07:10 131 H 27 H 83/46 91 L 06/24/18 07:00 152 H 21 77/58 90 L 06/24/18 06:55 112 H 18 83/46 91 L 06/24/18 06:50 130 H 26 H 90/47 89 L 06/24/18 06:40 142 H 27 H 90/47 91 L 06/24/18 06:30 125 H 28 H 90/47 91 L 06/24/18 06:20 120 H 27 H 90/47 91 L 06/24/18 06:10 138 H 37 H 90/47 92 L 06/24/18 06:00 121 H 24 06/24/18 05:50 105 H 22 90/47 06/24/18 05:40 72 28 H 90/47 100 06/24/18 05:30 74 22 90/47 100 06/24/18 05:20 72 27 H 90/47 93 L 06/24/18 05:10 76 30 H 90/47 94 L 06/24/18 05:06 20 06/24/18 05:00 75 26 H 90/47 95 06/24/18 04:50 78 28 H 95 06/24/18 04:49 77 29 H 94 L 06/24/18 04:45 98.5 F 78 20 90/47 95 Intake and Output 06/23/18 06/24/18 06/24/18 22:59 06:59 14:59 Other: Weight 49.2 kg GENERAL EXAM: Alert, lethargic, hard of hearing, comfortable in no apparent distress. HEAD: Normocephalic. EYES: Normal reaction of pupils, equal size. NOSE: Clear with pink turbinates. THROAT: No erythema or exudates. NECK: No masses, no JVD. CHEST: No chest wall deformity. LUNGS: Lungs noted to be diminished with rhonchi and without as well as an expiratory wheeze CVS: S1 and S2 normal with no audible mumurs, regular rhythm. ABDOMEN: No hepatosplenomegaly, normal bowel sounds, no guarding or rigidity. EXTREMITIES: Trace edema noted, pedal pulses palpable. CENTRAL NERVOUS SYSTEM: No focal deficits, tone is normal in all 4 extremities. Results - Laboratory Findings CBC and BMP: 06/24/18 07:31 ABG ABG pH 7.32 (7.35-7.45) L 06/24/18 08:55 ABG pCO2 58 mmHg (35-45) H 06/24/18 08:55 ABG pO2 68 mmHg (83-108) L 06/24/18 08:55 ABG O2 Saturation 92.4 % (94-97) L 06/24/18 08:55 Abnormal lab findings: Abnormal Labs 06/24/18 06/24/18 07:31 08:55 ABG pH 7.32 L ABG pCO2 58 H ABG pO2 68 L ABG HCO3 30 H ABG Total CO2 32 H ABG O2 Saturation 92.4 L BUN 78 H Creatinine 1.38 H Glucose 148 H Calcium 7.9 L - Diagnostic Findings Chest x-ray: report reviewed, image reviewed Assessment and Plan Assessment: Assessment Severe sepsis with sepsis shock Acute hypercapnic respiratory failure Acute on chronic hypoxic respiratory failure Acute exacerbation of COPD Bilateral pneumonia History of CAD Dementia A. fib with RVR History of hypertension Hyperlipidemia Plan Medications have been reviewed and will be continued as ordered. Antibiotics per ID Solu-Medrol taper ICU management per Dr. Carver Cardiology on consult appreciate recommendations Echocardiogram ordered BiPAP as needed Continue with pulmonary hygiene, coughing and deep breathing exercises, and supportive care. Supplemental oxygen to maintain oxygen saturations of 92% or better. Continue nebulizer treatments. Budesonide and DuoNeb GI and DVT prophylaxis. Protonix and heparin We will continue to monitor labs/results and adjust treatment as necessary. Thank you for this consultation we will continue to follow this patient with you Further recommendations pending. I, the signing physician performed an examination of the patient, discussed and directed their management with the nurse practitioner. I have reviewed the nurse practitioner's note and agree with the documented findings, orders and plan of care. Plan: Assessment Acute on chronic hypoxic respiratory failure Acute exacerbation of CHF Acute exacerbation of COPD Pneumonia Ascites Chronic kidney disease stage III Plan Oxygen to maintain saturations greater than 90% Bronchodilators Aerosolized steroids Increase Lasix to 40 mg. IV q 8 hours. Add Aldactone 25 mg. Daily GI and DVT prophylaxis Echocardiogram Consult Cardiology Check labs in the morning. Thank you for the consultation. We will follow patient closely with you making further changes as necessary
[2018-06-24 11:56] LABS: Glucose,Whole Blood 156 mg/dL (75-99)
[2018-06-24] MEDS ORDERED: DEXTROSE 5% IN WATER 100 ML with AMIODARONE 150 MG IV ONE (12:00)
[2018-06-24] MEDS: methylPREDNISolone SOD SUCCI 40 MG/ML 1 ML VIAL IV SCH ×2 (12:23→20:48)
[2018-06-24] MEDS: PIPERACILLIN-TAZOBACTAM 3.375 GM in DEXTROSE/WATER 1 50ML.BAG IVPB SCH ×2 (12:25→21:27)
[2018-06-24 12:46] LABS: HCT 31.8 % (39.0-53.0); HGB 10.2 gm/dL (13.0-17.5); Hypochromasia Slight; MCH 33.3 pg (25.0-35.0); MCHC 32.1 g/dL (31.0-37.0); MCV 103.8 fL (80.0-100.0); Macrocytosis Slight; Mean Platelet Volume 7.1; Platelet Count 251 k/uL (150-450); RBC 3.06 m/uL (4.30-5.90); RDW 12.3 % (11.5-15.5); WBC 8.5 k/uL (3.8-10.6)
[2018-06-24 12:55] LABS: INR 1.2 (<1.2); Partial Thromboplastin Time 34.4 sec (22.0-30.0); Prothrombin Time 11.8 sec (9.0-12.0)
[2018-06-24] MEDS: AMIODARONE 450 MG in DEXTROSE 5% IN WATER 250 ML IV SCH ×4 (13:00→20:50)
[2018-06-24] MEDS: HEPARIN SOD,PORK IN 0.45% NACL 25,000 UNIT in 0.45% NACL 1 500ML.BAG IV SCH (13:01)
[2018-06-24 13:05] LABS: Band Neutrophils % 22 %; Lymphocytes # (M) 0.26 k/uL (1.0-4.8); Metamyelocytes # (M) 0.26 k/uL (0); Metamyelocytes % 3 %; Monocytes # (M) 0.43 k/uL (0-1.0); Neutrophils % (M) 69 %; Nucleated Red Blood Cells 0 /100 WBC (0-0); Poikilocytosis (M) Present; Total Cells Counted 200; Toxic Granulation Present
--- NOTE | 2018-06-24 14:52 | P.HPIM ---
History of Present Illness H&P Date: 06/24/18 Chief Complaint: Shortness of breath This is an 83-year old male with a past medical history of CHF, COPD, chronic kidney disease stage III, and chronic respiratory failure. The patient presented to [facility] with respiratory distress, from there he was transferred to [facility]. He is found to have bilateral pneumonia. Patient is quite confused and a very poor historian. While in the emergency department did go into A.fib with RVR and did have significant hypotension. He required a central line and vasopressors were started at 10mcg/min. His chest xray revealed COPD as well as bilateral pneumonia. ABG showed a PH of 7.3, pCO2 58, pO2 68, HCO3 of 30, consistent with hypercapnia, hypoxia and respiratory acidosis. He was started on Cardizem IV, he did converted to normal sinus rhythm , Cardizem was discontinued and he was started on Amiodarone and a heparin infusion. Blood and sputum cultures were obtained, he was started on Levofloxacin, Zosyn, and Vancomycin and transferred to the ICU unit. Review of Systems ROS completed, noted to have altered mental status and is very hard of hearing Constitutional: Reports fatigue Cardiovascular: Reports dyspnea on exertion, Reports shortness of breath, Denies chest pain, Denies edema, Denies palpitations Respiratory: Reports congestion, Reports cough, Reports dyspnea, Reports wheezing Gastrointestinal: Denies abdominal pain, Denies nausea Integumentary: Reports depigmentation Neurological: Reports confusion, Reports memory loss Past Medical History Past Medical History: Asthma, Coronary Artery Disease (CAD), Heart Failure, COPD , CVA/TIA, Hyperlipidemia, Hypertension, Prostate Disorder, Renal Disease, Skin Disorder Additional Past Medical History / Comment(s): Daughter, Mandi, states pt recently admitted to [facility] with abdominal distention/ascities/hematuria and had peck catheter placed. Other Hx: Asthma, bronchitis, pulmonary fibrosis, sinus problems, O2 3l/nc, AAA low aorta, PMH documents CVA but ankita is unsure if he ever had one, recent shaking-was to have neuro work up, BPH, CKD stage IV, psoriasis, protein calorie malnutrition, hyponatremia. History of Any Multi-Drug Resistant Organisms: None Reported Past Surgical History: Ear Surgery, Heart Catheterization With Stent Additional Past Surgical History / Comment(s): 2010 PCI with stent to cx, bilateral cataract removals, L eye surgery for detached retina, L ear surgery for meniere's disease, colonoscopy, L knee arthroscopy. Additional Past Anesthesia/Blood Transfusion Reaction / Comment(s): [facility] documents respiratory difficulty post operatively Date of Last Stent Placement:: 2010 Smoking Status: Former smoker Past Alcohol Use History: Occasional Additional Past Alcohol Use History / Comment(s): states drinks Vodka at times - Past Family History Mother Family Medical History: Osteoarthritis (OA) Additional Family Medical History / Comment(s): at 86 from CVA Father Family Medical History: No Reported History Additional Family Medical History / Comment(s): Father young in a construction accident. Medications and Allergies Home Medications Medication Instructions Recorded Confirmed Type ALPRAZolam [Xanax] 0.25 mg PO TID PRN 06/24/18 06/24/18 History Acetaminophen with Codeine 1 tab PO Q4H PRN 06/24/18 06/24/18 History [Tylenol w/codeine #3] Ammonium Lactate Lotion 1 applic TOPICAL HS 06/24/18 06/24/18 History [Lac-Hydrin 12% Lotion] Atorvastatin [Lipitor] 40 mg PO HS 06/24/18 06/24/18 History Budesonide [Pulmicort] 0.5 mg INHALATION RT-DAILY 06/24/18 06/24/18 History Citalopram Hydrobromide [CeleXA] 20 mg PO DAILY 06/24/18 06/24/18 History Clopidogrel [Plavix] 75 mg PO HS 06/24/18 06/24/18 History Famotidine [Pepcid] 20 mg PO DAILY 06/24/18 06/24/18 History Finasteride [Proscar] 5 mg PO DAILY 06/24/18 06/24/18 History Furosemide [Lasix] 40 mg PO BID@0600,1200 06/24/18 06/24/18 History Ipratropium-Albuterol Nebulize 3 ml INHALATION RT-QID 06/24/18 06/24/18 History [Duoneb 0.5 mg-3 mg/3 ml Soln] Lactulose 20 gm PO BID@0800,2000 06/24/18 06/24/18 History Lisinopril [Zestril] 2.5 mg PO DAILY 06/24/18 06/24/18 History Metoprolol Succinate [Toprol XL] 25 mg PO DAILY 06/24/18 06/24/18 History Mirtazapine [Remeron] 15 mg PO HS 06/24/18 06/24/18 History Montelukast [Singulair] 10 mg PO HS 06/24/18 06/24/18 History Spironolactone [Aldactone] 25 mg PO DAILY 06/24/18 06/24/18 History Tamsulosin [Flomax] 0.4 mg PO DAILY 06/24/18 06/24/18 History Allergies Allergy/AdvReac Type Severity Reaction Status Date / Time No Known Allergies Allergy Verified 06/24/18 08:46 Physical Exam Vitals: Vital Signs Temp Pulse Resp BP Pulse Ox 06/24/18 14:00 57 L 22 93/50 97 06/24/18 13:45 58 L 24 109/56 98 06/24/18 13:30 65 12 80/55 97 06/24/18 13:15 59 L 14 97/57 96 06/24/18 13:00 65 20 110/55 100 06/24/18 12:53 68 06/24/18 12:45 80 22 105/58 96 06/24/18 12:38 70 06/24/18 12:30 67 20 104/59 98 06/24/18 12:15 70 22 108/46 96 06/24/18 12:00 71 12 101/88 99 06/24/18 11:45 97.4 F L 72 17 103/63 98 06/24/18 11:42 98.5 F 69 22 120/66 100 06/24/18 11:30 108/91 06/24/18 10:38 69 22 78/54 100 06/24/18 10:20 113/53 96 06/24/18 10:13 16 93/53 97 06/24/18 10:00 94/60 96 06/24/18 08:18 138 H 30 H 88/51 94 L 06/24/18 07:40 138 H 30 H 88/51 94 L 06/24/18 07:35 129 H 06/24/18 07:30 141 H 17 89/59 93 L 06/24/18 07:24 89/59 06/24/18 07:20 112 H 18 89/59 92 L 06/24/18 07:10 131 H 27 H 83/46 91 L 06/24/18 07:00 152 H 21 77/58 90 L 06/24/18 06:55 112 H 18 83/46 91 L 06/24/18 06:50 130 H 26 H 90/47 89 L 06/24/18 06:40 142 H 27 H 90/47 91 L 06/24/18 06:30 125 H 28 H 90/47 91 L 06/24/18 06:20 120 H 27 H 90/47 91 L 06/24/18 06:10 138 H 37 H 90/47 92 L 06/24/18 06:00 121 H 24 06/24/18 05:50 105 H 22 90/47 06/24/18 05:40 72 28 H 90/47 100 06/24/18 05:30 74 22 90/47 100 06/24/18 05:20 72 27 H 90/47 93 L 06/24/18 05:10 76 30 H 90/47 94 L 06/24/18 05:06 20 06/24/18 05:00 75 26 H 90/47 95 06/24/18 04:50 78 28 H 95 06/24/18 04:49 77 29 H 94 L 06/24/18 04:45 98.5 F 78 20 90/47 95 Intake and Output 06/23/18 06/24/18 06/24/18 22:59 06:59 14:59 Intake Total 268.582 Output Total 440 Balance -171.418 Intake: IV 247.5 Dextrose 5% in Water 100 150 ml @ 618 mls/hr IV .Q10M ONE with Amiodarone 150 mg Rx#:[id number] Piperacillin-Tazobactam 3 37.5 .375 gm In Dextrose/Water 1 50ml.bag @ 12.5 mls/hr IVPB Q8HR RITIKA Rx#: [id number] Sodium Chloride 0.9% 1, 60 000 ml @ 20 mls/hr IV . Q24H RITIKA Rx#:[id number] Intake, IV Titration 21.082 Amount Norepinephrine 16 mg In 21.082 Sodium Chloride 0.9% 250 ml @ Titrate IV .Q0M RITIKA Rx#:[id number] Output: Urine 440 Other: Weight 49.2 kg 50.1 kg - Constitutional General appearance: cooperative, disheveled, mild distress - EENT Eyes: EOMI, PERRLA ENT: hard of hearing, normal oropharynx Ears: bilateral: normal - Neck Neck: normal ROM Carotids: bilateral: upstroke normal - Respiratory Respiratory: bilateral: diminished, dullness, rales, rhonchi, wheezing, prolonged expiration - Cardiovascular Distant heart sounds Rhythm: regular Heart sounds: normal: S1, S2 - Gastrointestinal General gastrointestinal: no distended, no hepatomegaly, normal bowel sounds, no organomegaly, soft, no splenomegaly, no tenderness - Neurologic Neurologic: CNII-XII intact - Musculoskeletal Musculoskeletal: generalized weakness, strength equal bilaterally - Psychiatric Mildly confused Results CBC & Chem 7: 06/24/18 12:20 06/24/18 07:31 Labs: Abnormal Lab Results - Last 24 Hours (Table) 06/24/18 06/24/18 06/24/18 Range/Units 07:31 08:55 11:44 RBC (4.30-5.90) m/uL Hgb (13.0-17.5) gm/dL Hct (39.0-53.0) % MCV (80.0-100.0) fL Lymphocytes # (Manual) (1.0-4.8) k/uL Metamyelocytes # (Man) (0) k/uL INR (<1.2) APTT (22.0-30.0) sec ABG pH 7.32 L (7.35-7.45) ABG pCO2 58 H (35-45) mmHg ABG pO2 68 L (83-108) mmHg ABG HCO3 30 H (21-25) mmol/L ABG Total CO2 32 H (19-24) mmol/L ABG O2 Saturation 92.4 L (94-97) % BUN 78 H (9-20) mg/dL Creatinine 1.38 H (0.66-1.25) mg/dL Glucose 148 H (74-99) mg/dL POC Glucose (mg/dL) 156 H (75-99) mg/dL Calcium 7.9 L (8.4-10.2) mg/dL 06/24/18 06/24/18 Range/Units 12:20 12:20 RBC 3.06 L (4.30-5.90) m/uL Hgb 10.2 L (13.0-17.5) gm/dL Hct 31.8 L (39.0-53.0) % MCV 103.8 H (80.0-100.0) fL Lymphocytes # (Manual) 0.26 L (1.0-4.8) k/uL Metamyelocytes # (Man) 0.26 H (0) k/uL INR 1.2 H (<1.2) APTT 34.4 H (22.0-30.0) sec ABG pH (7.35-7.45) ABG pCO2 (35-45) mmHg ABG pO2 (83-108) mmHg ABG HCO3 (21-25) mmol/L ABG Total CO2 (19-24) mmol/L ABG O2 Saturation (94-97) % BUN (9-20) mg/dL Creatinine (0.66-1.25) mg/dL Glucose (74-99) mg/dL POC Glucose (mg/dL) (75-99) mg/dL Calcium (8.4-10.2) mg/dL Thrombosis Risk Factor Assmnt - Choose All That Apply Any of the Below Risk Factors Present?: Yes Each Factor Represents 1 point: Abnormal pulmonary function (COPD), Serious lung disease incl. pneumonia (< 1month) Other Risk Factors: Yes Each Risk Factor Represents 3 Points: Age 75 years or older Other congenital or acquired thrombophilia - If yes, enter type in comment: No Thrombosis Risk Factor Assessment Total Risk Factor Score: 5 Thrombosis Risk Factor Assessment Level: High Risk Assessment and Plan Plan: 1. Acute hypercapnic hypoxic respiratory failure on chronic respiratory failure secondary to COPD and bilateral pneumonia. Continue nebulizers Q4 hours with Pulmicort BID, Solumedol 40mg IV Q12. Continue Zosyn, Vancomycin, and Levofloxacin, pulmonary on consult. Bipap and supplemental oxygen as needed 2. Septic shock secondary to bilaterial pneumonia. Infectious disease consulted , continue Zosyn, Vancomycin, and Levofloxacin. Blood and sputum cultures ordered, will also check for influenza. Continue Norepinephrine currently at 10mcg/min. 3. Acute COPD exacerbation. Continue antibiotics, nebulizers, pulmicort, solumedrol and continue with supplemental oxygen 4. A.Fib with RVR. Continue Heparin and Amiodarone infusion, cardiology is on consult 5. Cachexia. Ensure oral supplement ordered. 6. Hypertension. Currently hypotensive, zestril and metoprolol held 7. Hyperlipidemia. May continue on Atorvastatin 40mg daily 8. DVT prophylaxis. On heparin infusion 9. GI prophylaxis. Protonix 40mg daily The patient was seen and evaluated by Dr. Zamudio, plan, assessment and medications were all discussed and directed by Dr Zamudio, Nena Redding [facility] acting as a scribe.
[2018-06-24] MEDS ORDERED: ALBUMIN HUMAN 25% 50 ML in EMPTY BAG 1 BAG IVPB ONE (17:26)
--- NOTE | 2018-06-24 18:58 | ECHOF ---
Referral Reason:atrial fibrillation MEASUREMENTS -------- HEIGHT: 170.2 cm WEIGHT: 49.0 kg BP: 90/47 IVSd: 1.2 cm (0.6 - 1.1) LVIDd: 5.0 cm (3.9 - 5.3) LVPWd: 1.2 cm (0.6 - 1.1) IVSs: 1.3 cm LVIDs: 3.4 cm LVPWs: 1.4 cm LA Diam: 3.3 cm (2.7 - 3.8) RVIDd: 3.2 cm (< 3.3) Ao Diam: 3.7 cm (2.0 - 3.7) LA Diam: 2.3 cm (2.7 - 3.8) AV Cusp: 1.6 cm (1.5 - 2.6) EPSS: 0.6 cm MV E Krunal: 0.71 m/s MV DecT: 227 ms MV A Krunal: 0.87 m/s MV E/A Ratio: 0.82 RAP: 5.00 mmHg RVSP: 44.92 mmHg MV EF SLOPE: 106.94 mm/s (70 - 150) MV EXCURSION: 2.76 cm (> 18.000) FINDINGS -------- Atrial fibrillation. This was a technically difficult study with suboptimal views. The left ventricular size is normal. There is mild concentric left ventricular hypertrophy. Overa ll left ventricular systolic function is low-normal with, an EF between 50 - 55 %. The right ventricle is mildly enlarged. The left atrial size is normal. RA appears enlarged. Aortic valve is trileaflet and is mildly thickened. There is no evidence of aortic regurgitation. There is no evidence of aortic stenosis. The mitral valve leaflets are mildly thickened. Mild mitral annular calcification present. Mild m itral regurgitation is present. Mild tricuspid regurgitation present. There is mild pulmonary hypertension. The right ventricular systolic pressure, as measured by Doppler, is 44.92mmHg. The pulmonic valve was not well visualized. The aortic root size is normal. IVC Not well visulized. There is no pericardial effusion. CONCLUSIONS -------- 1. Atrial fibrillation. 2. This was a technically difficult study with suboptimal views. 3. The left ventricular size is normal. 4. There is mild concentric left ventricular hypertrophy. 5. Overall left ventricular systolic function is low-normal with, an EF between 50 - 55 %. 6. The right ventricle is mildly enlarged. 7. RA appears enlarged. 8. Aortic valve is trileaflet and is mildly thickened. 9. The mitral valve leaflets are mildly thickened. 10. Mild mitral annular calcification present. 11. Mild mitral regurgitation is present. 12. Mild tricuspid regurgitation present. 13. There is mild pulmonary hypertension. 14. The right ventricular systolic pressure, as measured by Doppler, is 44.92mmHg. 15. The pulmonic valve was not well visualized. 16. The aortic root size is normal. 17. IVC Not well visulized. 18. There is no pericardial effusion. IT OPERATIONS SPECIALIST: Donaldo Watts RDCS
[2018-06-24 19:31] LABS: Amorphous Sediment,Urine Occasional /hpf; Appearance,Urine Turbid (Clear); Bacteria,Urine Rare /hpf; Bilirubin,Urine Negative (Negative); Blood,Urine Trace (Negative); Color,Urine Yellow; Glucose,Urine (UA) Negative (Negative); Hyaline Casts,Urine 2 /lpf (0-2); Ketones,Urine Negative (Negative); Leukocyte Esterase,Urine Negative (Negative); Mucus,Urine Rare /hpf; Nitrite,Urine Negative (Negative); PH, Urine 5.5 (5.0-8.0); Protein,Urine Trace (Negative); Specific Gravity,Urine 1.015 (1.001-1.035); Squamous Epithelial Cell,Urine 1 /hpf (0-4); Uric Acid Crystals,Urine Many /hpf; Urobilinogen,Urine <2.0 mg/dL (<2.0); WBC,Urine 3 /hpf (0-5)
[2018-06-24] MEDS: BUDESONIDE 0.5 MG/2 ML NEBU INHALATION SCH (19:51)
[2018-06-24] MEDS: INSULIN ASPART 100 UNIT/ML 1 ML 10 ML VIAL SQ SCH (20:57)
[2018-06-24] MEDS ORDERED: HEPARIN SODIUM,PORCINE 5,000 UNIT/ML 1 ML VIAL SQ SCH (21:00)
[2018-06-24 21:04] LABS: Glucose,Whole Blood 181 mg/dL (75-99)
[2018-06-24 21:22] LABS: Calcium 8.8 mg/dL (8.4-10.2); Magnesium 2.1 mg/dL (1.6-2.3); Phosphorus 3.2 mg/dL (2.5-4.5); Potassium 3.2 mmol/L (3.5-5.1)
[2018-06-24] MEDS ORDERED: Potassium Replacement Protocol 1 EACH MISC MISCELLANE PRN (21:41)
[2018-06-24] MEDS: HEPARIN SODIUM,PORCINE 5,000 UNIT/ML 1 ML VIAL IV PRN (21:59)
[2018-06-24] MEDS: POTASSIUM CHLORIDE ER 20 MEQ TAB.ER PO SCH ×2 (22:02→22:41)
[2018-06-25] MEDS: AMIODARONE 450 MG in DEXTROSE 5% IN WATER 250 ML IV SCH ×2 (02:54)
[2018-06-25] MEDS: PIPERACILLIN-TAZOBACTAM 3.375 GM in DEXTROSE/WATER 1 50ML.BAG IVPB SCH ×3 (03:21→20:38)
--- NOTE | 2018-06-25 05:19 | CONS ---
CONSULTATION DATE OF SERVICE: 06/24/2018 REASON FOR CONSULTATION: Pneumonia. HISTORY OF PRESENT ILLNESS: The patient is an 83-year-old male who apparently is a resident of [facility]. The patient did have a history of COPD and did develop respiratory distress. Over the course of the evening before presentation to hospital, the patient did have progressive increasing shortness of breath. The patient also had a cough bringing up some sputum, however, unable to tell me exactly the color of the sputum, but denies any blood in his sputum. No significant chest pain. No nausea or vomiting. No difficulty swallowing or any diarrhea. With these symptoms, the patient initially has been evaluated at the [facility]. Subsequently has been transferred to the [facility]. The patient has been hypotensive. He also went to atrial fibrillation with RVR. The patient did have a chest x-ray, which did shows diffuse COPD with bilateral consolidation, pleural effusion. There is either contrast or calcification overlying the mid vertebral column correlate clinically. The patient because of his hypotension, has been admitted to the ICU. He has been afebrile. His white count not significantly elevated. The patient did have mildly positive UA. Influenza serology was negative. The patient has been started on Levaquin and Zosyn as well as Vancomycin. Infectious Disease was consulted for further recommendation regarding antibiotic therapy. REVIEW OF SYSTEMS: CONSTITUTIONAL: Positive for weakness and some chills. Denies having fever. EYES: No complaint. ENT: No complaint. RESPIRATORY: As per HPI. CARDIOVASCULAR: As per HPI. GENITOURINARY: No complaint. GASTROINTESTINAL: No complaint. MUSCULOSKELETAL: No complaint. INTEGUMENTARY: No complaint. PSYCHOLOGICAL: No complaint. ENDOCRINE: No complaint. NEUROLOGIC: No complaint. PAST MEDICAL HISTORY: Asthma, coronary artery disease, heart failure, COPD, CVA, TIA, hypertension, hyperlipidemia, prostate disorder insufficiency. PAST SURGICAL HISTORY: PTCA with stent, bilateral cataract surgery, left ear surgery for Meniere's disease, colonoscopy and left knee arthroscopy. SOCIAL HISTORY: Remote history of smoking. Occasionally drinks. No drug use. FAMILY HISTORY: Mother with history osteoarthritis diet at age of 86 from CVA. Father actually in a construction accident no medical problems. ALLERGIES: No known drug allergies. MEDICATION: Medications currently include the patient is on vancomycin, pharmacy to dose. He is on Zosyn Levaquin, Protonix, norepinephrine, Solu-Medrol, amiodarone, DuoNeb and Ventolin. PHYSICAL EXAMINATION: On examination, blood pressure 125/63 with a pulse of 60, temperature 98. He is 95% on 5 L nasal cannula. General description is an elderly male lying in bed in no distress. No tachypnea or accessory muscle of respiration use. HEENT examination shows slight pallor. No scleral icterus. Oral mucous membrane is dry. No pharyngeal erythema or thrush. NECK: Trachea central. No thyromegaly. LUNGS: Unlabored breathing with decreased breath sounds in the bases. No wheeze. HEART: S1, S2. Regular rate and rhythm. ABDOMEN: Soft, no tenderness. No guarding or rigidity. EXTREMITIES: No edema of the feet. SKIN EXAMINATION: No rash or mass palpable. NEUROLOGICAL: The patient is awake, alert, oriented x2. Mood and affect normal. LABS: Hemoglobin 10.2, white count 8.5 with a BUN of 72, creatinine 1.32. Electrolytes have been normal. Urine has been negative. Influenza serology was negative. Chest x-ray report as mentioned above. DIAGNOSTIC IMPRESSION AND PLAN: The patient admitted to the hospital with difficulty in breathing, which is likely multifactorial in this patient with possible component of pneumonia not entirely excluded in this patient who is a [facility] resident. Will need to cover for the resistant gram-negative as well as gram-positive pathogen. PLAN: 1. Will try to obtain sputum for Gram stain culture and sensitivity. 2. We will keep the patient on vancomycin pharmacy to dose target of 15 while watching his kidney function closely in addition to the Zosyn. 3. Depending upon his clinical response as well as culture, will adjust medication further if needed. Thank you for this consultation. Will follow this patient along with you. MMODL / IJN: [id number] /
[2018-06-25] MEDS: SODIUM CHLORIDE 0.9% 1,000 ML IV SCH (05:57)
[2018-06-25 06:25] LABS: Glucose,Whole Blood 167 mg/dL (75-99)
[2018-06-25] MEDS: INSULIN ASPART 100 UNIT/ML 1 ML 10 ML VIAL SQ SCH ×4 (06:39→21:32)
--- NOTE | 2018-06-25 06:48 | P.PN ---
Subjective Progress Note Date: 06/25/18 Principal diagnosis: Paroxysmal atrial fibrillation The patient is an 83-year-old gentleman who was transferred from [facility] to [facility] after he was diagnosed with bilateral pneumonia at [facility]. Currently the patient is on BiPAP and he is confused and poor historian and the history was taken mainly from the chart as well as from the nurse taking care of the patient. The patient does have an extensive past medical history consistent off advanced chronic obstructive pulmonary disease as well as chronic respiratory failure and he resides at an extended care facility. Beside that he does have underlying dementia, coronary artery disease, hypertension, and dyslipidemia. He was quite more short of breath at the [facility] care facility and he was also having change in mental status as well as delirium. No indication of any fever or chills. No indication of any cough. He was brought to the emergency room at [facility] where the chest x-ray showed bilateral pneumonia and then he was transferred here. In the emergency room here, the patient was found to be in A. fib with RVR and also he was hypotensive. He was started on vasopressors was Levophed and he continues to be on Levothroid at this point. He was converted to normal sinus mechanism and currently his heart rate has been in the 70s. The chest x-ray from here revealed findings consistent with COPD with bilateral pleural effusion. Beside that, the initial EKG showed atrial fibrillation with RVR and the subsequent EKG showed normal sinus mechanism. There is no indication of any history of atrial fibrillation in the chart and also the patient was not receiving any oral anticoagulation as an outpatient. The patient is in process of being transferred to the intensive care unit, currently the patient is in the emergency room. He was started at the emergency room on heparin IV as well as amiodarone IV and an echocardiogram was ordered. On follow-up with the patient today, June [id number], the patient continues to be hemodynamically stable. The blood pressure is on the low side. He has been maintaining normal sinus mechanism. I am going to DC the amiodarone IV and start the patient on amiodarone by mouth. Continue heparin for now. The echocardiogram was done and revealed normal LV function with mild MR, mild TR, and mild pulmonary hypertension. Objective - Vital Signs Vital signs: Vital Signs Temp 98.1 F 06/25/18 04:00 Pulse 63 06/25/18 05:30 Resp 17 06/25/18 05:30 BP 97/57 06/25/18 05:30 Pulse Ox 94 L 06/25/18 05:30 Intake & Output 06/24/18 06/24/18 06/25/18 06:59 18:59 06:59 Intake Total 036.396 1488.707 Output Total 620 442 Balance 30.857 896.707 Weight 49.2 kg 50.1 kg 57.7 kg Intake: IV 340.0 563.7 Albumin Human 25% 50 ml 50 In Empty Bag 1 bag @ 100 mls/hr IVPB ONCE ONE Rx#: [id number] Amiodarone 450 mg In 173.7 Dextrose 5% in Water 250 ml @ 1 MG/MIN 33.33 mls/ hr IV .Q7H31M [facility] Rx#: [id number] Dextrose 5% in Water 100 150 ml @ 618 mls/hr IV .Q10M ONE with Amiodarone 150 mg Rx#:[id number] Piperacillin-Tazobactam 3 50.0 100 .375 gm In Dextrose/Water 1 50ml.bag @ 12.5 mls/hr IVPB Q8HR [facility] Rx#: [id number] Sodium Chloride 0.9% 1, 140 240 000 ml @ 20 mls/hr IV . Q24H [facility] Rx#:[id number] Intake, IV Titration 70.857 555.007 Amount Amiodarone 450 mg In 402.682 Dextrose 5% in Water 250 ml @ 1 MG/MIN 33.33 mls/ hr IV .Q7H31M [facility] Rx#: [id number] Heparin Sod,Pork in 0.45% 106.003 NaCl 25,000 unit In 0.45 % NaCl 1 500ml.bag @ 12 UNITS/KG/HR 11.8 mls/hr IV .Q24H [facility] Rx#: [id number] Norepinephrine 16 mg In 70.857 46.322 Sodium Chloride 0.9% 250 ml @ Titrate IV .Q0M [facility] Rx#:[id number] Oral 240 220 Output: Urine 620 442 Other: Voiding Method Indwelling Catheter Indwelling Catheter - Constitutional General appearance: Present: no acute distress - Respiratory Respiratory: bilateral: diminished - Cardiovascular Rhythm: regular Heart sounds: normal: S1, S2 - Labs CBC & Chem 7: 06/24/18 12:20 06/24/18 20:42 Labs: Abnormal Lab Results - Last 24 Hours (Table) 06/24/18 06/24/18 06/24/18 Range/Units 07:31 08:55 11:44 RBC (4.30-5.90) m/uL Hgb (13.0-17.5) gm/dL Hct (39.0-53.0) % MCV (80.0-100.0) fL Lymphocytes # (Manual) (1.0-4.8) k/uL Metamyelocytes # (Man) (0) k/uL INR (<1.2) APTT (22.0-30.0) sec ABG pH 7.32 L (7.35-7.45) ABG pCO2 58 H (35-45) mmHg ABG pO2 68 L (83-108) mmHg ABG HCO3 30 H (21-25) mmol/L ABG Total CO2 32 H (19-24) mmol/L ABG O2 Saturation 92.4 L (94-97) % Potassium (3.5-5.1) mmol/L BUN 78 H (9-20) mg/dL Creatinine 1.38 H (0.66-1.25) mg/dL Glucose 148 H (74-99) mg/dL POC Glucose (mg/dL) 156 H (75-99) mg/dL Calcium 7.9 L (8.4-10.2) mg/dL Urine Protein (Negative) Urine Blood (Negative) Uric Acid Crystals (None) /hpf Amorphous Sediment (None) /hpf Urine Bacteria (None) /hpf Urine Mucus (None) /hpf 06/24/18 06/24/18 06/24/18 Range/Units 12:20 12:20 18:50 RBC 3.06 L (4.30-5.90) m/uL Hgb 10.2 L (13.0-17.5) gm/dL Hct 31.8 L (39.0-53.0) % MCV 103.8 H (80.0-100.0) fL Lymphocytes # (Manual) 0.26 L (1.0-4.8) k/uL Metamyelocytes # (Man) 0.26 H (0) k/uL INR 1.2 H (<1.2) APTT 34.4 H (22.0-30.0) sec ABG pH (7.35-7.45) ABG pCO2 (35-45) mmHg ABG pO2 (83-108) mmHg ABG HCO3 (21-25) mmol/L ABG Total CO2 (19-24) mmol/L ABG O2 Saturation (94-97) % Potassium (3.5-5.1) mmol/L BUN (9-20) mg/dL Creatinine (0.66-1.25) mg/dL Glucose (74-99) mg/dL POC Glucose (mg/dL) (75-99) mg/dL Calcium (8.4-10.2) mg/dL Urine Protein Trace H (Negative) Urine Blood Trace H (Negative) Uric Acid Crystals Many H (None) /hpf Amorphous Sediment Occasional H (None) /hpf Urine Bacteria Rare H (None) /hpf Urine Mucus Rare H (None) /hpf 06/24/18 06/24/18 06/24/18 Range/Units 19:37 20:42 20:52 RBC (4.30-5.90) m/uL Hgb (13.0-17.5) gm/dL Hct (39.0-53.0) % MCV (80.0-100.0) fL Lymphocytes # (Manual) (1.0-4.8) k/uL Metamyelocytes # (Man) (0) k/uL INR (<1.2) APTT 42.6 H (22.0-30.0) sec ABG pH (7.35-7.45) ABG pCO2 (35-45) mmHg ABG pO2 (83-108) mmHg ABG HCO3 (21-25) mmol/L ABG Total CO2 (19-24) mmol/L ABG O2 Saturation (94-97) % Potassium 3.2 L (3.5-5.1) mmol/L BUN 72 H (9-20) mg/dL Creatinine 1.32 H (0.66-1.25) mg/dL Glucose 179 H (74-99) mg/dL POC Glucose (mg/dL) 181 H (75-99) mg/dL Calcium (8.4-10.2) mg/dL Urine Protein (Negative) Urine Blood (Negative) Uric Acid Crystals (None) /hpf Amorphous Sediment (None) /hpf Urine Bacteria (None) /hpf Urine Mucus (None) /hpf 06/25/18 Range/Units 06:13 RBC (4.30-5.90) m/uL Hgb (13.0-17.5) gm/dL Hct (39.0-53.0) % MCV (80.0-100.0) fL Lymphocytes # (Manual) (1.0-4.8) k/uL Metamyelocytes # (Man) (0) k/uL INR (<1.2) APTT (22.0-30.0) sec ABG pH (7.35-7.45) ABG pCO2 (35-45) mmHg ABG pO2 (83-108) mmHg ABG HCO3 (21-25) mmol/L ABG Total CO2 (19-24) mmol/L ABG O2 Saturation (94-97) % Potassium (3.5-5.1) mmol/L BUN (9-20) mg/dL Creatinine (0.66-1.25) mg/dL Glucose (74-99) mg/dL POC Glucose (mg/dL) 167 H (75-99) mg/dL Calcium (8.4-10.2) mg/dL Urine Protein (Negative) Urine Blood (Negative) Uric Acid Crystals (None) /hpf Amorphous Sediment (None) /hpf Urine Bacteria (None) /hpf Urine Mucus (None) /hpf Microbiology - Last 24 Hours (Table) 06/24/18 18:50 Urine Culture - Preliminary Urine,Catheterized Assessment and Plan Assessment: Assessment #1 acute hypoxic respiratory failure #2 COPD exacerbation #3 bilateral pneumonia #4 known advanced COPD #5 known chronic respiratory failure #6 paroxysmal atrial fibrillation #7 coronary artery disease "by history" #8 hypertension #9 dyslipidemia #10 underlying dementia Plan #1 DC amiodarone IV and start amiodarone by mouth #2 continue the current medical regimen #3 continue heparin IV #4 the echo was reviewed and revealed normal LV function #5 follow-up with the patient Thank you for allowing us participate in his care and we'll continue following up with the patient
--- NOTE | 2018-06-25 07:30 | XR ---
EXAMINATION TYPE: XR chest 1V portable DATE OF EXAM: 06/25/2018 COMPARISON: Prior chest x-ray 06/24/2018 HISTORY: Pneumonia TECHNIQUE: Single frontal view of the chest is obtained. FINDINGS: Left jugular central venous sheath shows the distal tip overlying the region of the superi or vena cava. Underlying emphysematous changes are present. There may be some improvement in aeration at the lung bases. Heart size is stable. There are overlying cardiac leads. Blunting the costophreni c angles may be due to hyperinflation rather than effusion. No pneumothorax. There is evidence of old granulomatous disease. IMPRESSION: There may be some improvement in patient's aeration. Additional follow-up recommended..
[2018-06-25 07:32] LABS: Glucose,Whole Blood 154 mg/dL (75-99)
[2018-06-25 07:36] LABS: Basophils % (A) 0 %; Eosinophils % (A) 0 %; HCT 28.5 % (39.0-53.0); HGB 9.2 gm/dL (13.0-17.5); Hypochromasia Slight; Lymphocytes # (A) 0.1 k/uL (1.0-4.8); Lymphocytes % (A) 2 %; MCH 33.8 pg (25.0-35.0); MCHC 32.4 g/dL (31.0-37.0); MCV 104.2 fL (80.0-100.0); Macrocytosis Slight; Mean Platelet Volume 7.3; Monocytes # (A) 0.2 k/uL (0-1.0); Monocytes % (A) 3 %; Neutrophils # (A) 6.6 k/uL (1.3-7.7); Neutrophils % (A) 95 %; Platelet Count 225 k/uL (150-450); RBC 2.73 m/uL (4.30-5.90); RDW 12.2 % (11.5-15.5)
[2018-06-25 07:50] LABS: Albumin 2.4 g/dL (3.5-5.0); Calcium 8.7 mg/dL (8.4-10.2); Magnesium 2.2 mg/dL (1.6-2.3); Potassium 3.5 mmol/L (3.5-5.1); Total Bilirubin 0.5 mg/dL (0.2-1.3); Total Protein 4.6 g/dL (6.3-8.2)
[2018-06-25] MEDS: BUDESONIDE 0.5 MG/2 ML NEBU INHALATION SCH ×2 (09:41→20:59)
[2018-06-25] MEDS: IPRATROPIUM-ALBUTEROL 3 ML NEB INHALATION SCH ×4 (09:41→20:59)
[2018-06-25] MEDS: methylPREDNISolone SOD SUCCI 40 MG/ML 1 ML VIAL IV SCH ×2 (09:48→20:35)
[2018-06-25] MEDS: POTASSIUM CHLORIDE ER 20 MEQ TAB.ER PO SCH ×2 (10:00→11:16)
[2018-06-25] MEDS: PANTOPRAZOLE 40 MG TABLET PO SCH (10:00)
[2018-06-25] MEDS: HEPARIN SODIUM,PORCINE 5,000 UNIT/ML 1 ML VIAL IV PRN (10:01)
--- NOTE | 2018-06-25 10:07 | P.PN ---
Subjective Progress Note Date: 06/25/18 History of present illness: This is an 83-year-old patient well-known to our services, being seen examined and evaluated for pulmonary consultation. This patient was recently admitted at [facility] from 06/13/2018 to 06/19/2018. During that admission he was being treated for CHF, COPD, ascites, hyponatremia as well as chronic kidney disease stage III, he was discharged to [facility] after his hospitalization. He was sent to [facility] for respiratory distress. The patient came in to the emergency room from [facility] for transfer for respiratory distress and bilateral pneumonia. The patient was worked up in the ER and is very hard of hearing as well as a poor historian. While being worked up in the ER for his admission the patient did go into A. fib with RVR and did have some hypotension. He was given 1 L of fluid bolus in the ER, he ultimately required a central line placement as well as vasopressors. Consult was placed for Dr. Carver for ICU management. His chest x-ray did reveal COPD as well as bilateral consolidation along with pleural effusions. ABGs did reveal a pH of 7.3 to, pCO2 58, pO2 of 68, HCO3 of 30, he did have a component of hypercapnia, hypoxia and respiratory acidosis. Lactic acid was 1. Upon examination the patient is lethargic continues on supplemental oxygen. Blood pressures are being maintained with vasopressors. He is very hard of hearing. Interval history: 06/25/2018patient is being seen examined and evaluated today on rounds. He is resting up in bed on 5 L of supplemental oxygen via nasal cannula, he is much more alert and awake today. His chest x-ray was reviewed and does show improved aeration. He did have an echocardiogram which revealed an EF of 50-55 % and RVSP of 44.92. He currently is off of vasopressors. His Levophed was turned off at approximately 4 PM yesterday. He has been having good urine output. Cardiology has switched him from IV amiodarone 2 oral amiodarone. He continues on heparin. Currently hemodynamically stable. Afebrile, no further complaints. Objective - Vital Signs Vital signs: Vital Signs Temp 98.3 F 06/25/18 08:00 Pulse 69 06/25/18 09:57 Resp 16 06/25/18 08:30 BP 114/92 06/25/18 08:30 Pulse Ox 95 06/25/18 08:30 Intake & Output 06/24/18 06/25/18 06/25/18 18:59 06:59 18:59 Intake Total 658.220 6838.707 176.7 Output Total 620 442 280 Balance 30.857 896.707 -103.3 Weight 50.1 kg 57.7 kg Intake: IV 340.0 563.7 56.7 Albumin Human 25% 50 ml 50 In Empty Bag 1 bag @ 100 mls/hr IVPB ONCE ONE Rx#: [id number] Amiodarone 450 mg In 173.7 16.7 Dextrose 5% in Water 250 ml @ 1 MG/MIN 33.33 mls/ hr IV .Q7H31M [facility] Rx#: [id number] Dextrose 5% in Water 100 150 ml @ 618 mls/hr IV .Q10M ONE with Amiodarone 150 mg Rx#:[id number] Piperacillin-Tazobactam 3 50.0 100 .375 gm In Dextrose/Water 1 50ml.bag @ 12.5 mls/hr IVPB Q8HR [facility] Rx#: [id number] Sodium Chloride 0.9% 1, 140 240 40 000 ml @ 20 mls/hr IV . Q24H [facility] Rx#:[id number] Intake, IV Titration 70.857 555.007 20 Amount Amiodarone 450 mg In 402.682 Dextrose 5% in Water 250 ml @ 1 MG/MIN 33.33 mls/ hr IV .Q7H31M [facility] Rx#: [id number] Heparin Sod,Pork in 0.45% 106.003 NaCl 25,000 unit In 0.45 % NaCl 1 500ml.bag @ 12 UNITS/KG/HR 11.8 mls/hr IV .Q24H [facility] Rx#: [id number] Norepinephrine 16 mg In 70.857 46.322 Sodium Chloride 0.9% 250 ml @ Titrate IV .Q0M [facility] Rx#:[id number] Sodium Chloride 0.9% 1, 20 000 ml @ 20 mls/hr IV . Q24H [facility] Rx#:[id number] Oral 240 220 100 Output: Urine 620 442 280 Other: Voiding Method Indwelling Catheter Indwelling Catheter - Exam GENERAL EXAM: Alert, more awake today, intermittent confusion noted, hard of hearing, comfortable in no apparent distress. HEAD: Normocephalic. EYES: Normal reaction of pupils, equal size. NOSE: Clear with pink turbinates. THROAT: No erythema or exudates. NECK: No masses, no JVD. CHEST: No chest wall deformity. LUNGS: Lungs noted to be diminished with rhonchi as well as a faint expiratory wheeze CVS: S1 and S2 normal with no audible mumurs, regular rhythm. ABDOMEN: No hepatosplenomegaly, normal bowel sounds, no guarding or rigidity. EXTREMITIES: No edema noted, pedal pulses palpable. CENTRAL NERVOUS SYSTEM: No focal deficits, tone is normal in all 4 extremities. - Labs CBC & Chem 7: 06/25/18 07:09 06/25/18 07:09 Labs: Abnormal Lab Results - Last 24 Hours (Table) 06/24/18 06/24/18 06/24/18 Range/Units 07:31 11:44 12:20 RBC 3.06 L (4.30-5.90) m/uL Hgb 10.2 L (13.0-17.5) gm/dL Hct 31.8 L (39.0-53.0) % MCV 103.8 H (80.0-100.0) fL Lymphocytes # (1.0-4.8) k/uL Lymphocytes # (Manual) 0.26 L (1.0-4.8) k/uL Metamyelocytes # (Man) 0.26 H (0) k/uL INR (<1.2) APTT (22.0-30.0) sec Sodium (137-145) mmol/L Potassium (3.5-5.1) mmol/L Chloride (98-107) mmol/L Carbon Dioxide (22-30) mmol/L BUN 78 H (9-20) mg/dL Creatinine 1.38 H (0.66-1.25) mg/dL Glucose 148 H (74-99) mg/dL POC Glucose (mg/dL) 156 H (75-99) mg/dL Calcium 7.9 L (8.4-10.2) mg/dL Alkaline Phosphatase (38-126) U/L Total Protein (6.3-8.2) g/dL Albumin (3.5-5.0) g/dL Urine Protein (Negative) Urine Blood (Negative) Uric Acid Crystals (None) /hpf Amorphous Sediment (None) /hpf Urine Bacteria (None) /hpf Urine Mucus (None) /hpf 06/24/18 06/24/18 06/24/18 Range/Units 12:20 18:50 19:37 RBC (4.30-5.90) m/uL Hgb (13.0-17.5) gm/dL Hct (39.0-53.0) % MCV (80.0-100.0) fL Lymphocytes # (1.0-4.8) k/uL Lymphocytes # (Manual) (1.0-4.8) k/uL Metamyelocytes # (Man) (0) k/uL INR 1.2 H (<1.2) APTT 34.4 H 42.6 H (22.0-30.0) sec Sodium (137-145) mmol/L Potassium (3.5-5.1) mmol/L Chloride (98-107) mmol/L Carbon Dioxide (22-30) mmol/L BUN (9-20) mg/dL Creatinine (0.66-1.25) mg/dL Glucose (74-99) mg/dL POC Glucose (mg/dL) (75-99) mg/dL Calcium (8.4-10.2) mg/dL Alkaline Phosphatase (38-126) U/L Total Protein (6.3-8.2) g/dL Albumin (3.5-5.0) g/dL Urine Protein Trace H (Negative) Urine Blood Trace H (Negative) Uric Acid Crystals Many H (None) /hpf Amorphous Sediment Occasional H (None) /hpf Urine Bacteria Rare H (None) /hpf Urine Mucus Rare H (None) /hpf 06/24/18 06/24/18 06/25/18 Range/Units 20:42 20:52 06:13 RBC (4.30-5.90) m/uL Hgb (13.0-17.5) gm/dL Hct (39.0-53.0) % MCV (80.0-100.0) fL Lymphocytes # (1.0-4.8) k/uL Lymphocytes # (Manual) (1.0-4.8) k/uL Metamyelocytes # (Man) (0) k/uL INR (<1.2) APTT (22.0-30.0) sec Sodium (137-145) mmol/L Potassium 3.2 L (3.5-5.1) mmol/L Chloride (98-107) mmol/L Carbon Dioxide (22-30) mmol/L BUN 72 H (9-20) mg/dL Creatinine 1.32 H (0.66-1.25) mg/dL Glucose 179 H (74-99) mg/dL POC Glucose (mg/dL) 181 H 167 H (75-99) mg/dL Calcium (8.4-10.2) mg/dL Alkaline Phosphatase (38-126) U/L Total Protein (6.3-8.2) g/dL Albumin (3.5-5.0) g/dL Urine Protein (Negative) Urine Blood (Negative) Uric Acid Crystals (None) /hpf Amorphous Sediment (None) /hpf Urine Bacteria (None) /hpf Urine Mucus (None) /hpf 06/25/18 06/25/18 06/25/18 Range/Units 07:09 07:09 07:09 RBC 2.73 L (4.30-5.90) m/uL Hgb 9.2 L (13.0-17.5) gm/dL Hct 28.5 L (39.0-53.0) % MCV 104.2 H (80.0-100.0) fL Lymphocytes # 0.1 L (1.0-4.8) k/uL Lymphocytes # (Manual) (1.0-4.8) k/uL Metamyelocytes # (Man) (0) k/uL INR (<1.2) APTT 39.7 H (22.0-30.0) sec Sodium 147 H (137-145) mmol/L Potassium (3.5-5.1) mmol/L Chloride 109 H (98-107) mmol/L Carbon Dioxide 32 H (22-30) mmol/L BUN 68 H (9-20) mg/dL Creatinine 1.29 H (0.66-1.25) mg/dL Glucose 142 H (74-99) mg/dL POC Glucose (mg/dL) (75-99) mg/dL Calcium (8.4-10.2) mg/dL Alkaline Phosphatase 36 L (38-126) U/L Total Protein 4.6 L (6.3-8.2) g/dL Albumin 2.4 L (3.5-5.0) g/dL Urine Protein (Negative) Urine Blood (Negative) Uric Acid Crystals (None) /hpf Amorphous Sediment (None) /hpf Urine Bacteria (None) /hpf Urine Mucus (None) /hpf 06/25/18 Range/Units 07:20 RBC (4.30-5.90) m/uL Hgb (13.0-17.5) gm/dL Hct (39.0-53.0) % MCV (80.0-100.0) fL Lymphocytes # (1.0-4.8) k/uL Lymphocytes # (Manual) (1.0-4.8) k/uL Metamyelocytes # (Man) (0) k/uL INR (<1.2) APTT (22.0-30.0) sec Sodium (137-145) mmol/L Potassium (3.5-5.1) mmol/L Chloride (98-107) mmol/L Carbon Dioxide (22-30) mmol/L BUN (9-20) mg/dL Creatinine (0.66-1.25) mg/dL Glucose (74-99) mg/dL POC Glucose (mg/dL) 154 H (75-99) mg/dL Calcium (8.4-10.2) mg/dL Alkaline Phosphatase (38-126) U/L Total Protein (6.3-8.2) g/dL Albumin (3.5-5.0) g/dL Urine Protein (Negative) Urine Blood (Negative) Uric Acid Crystals (None) /hpf Amorphous Sediment (None) /hpf Urine Bacteria (None) /hpf Urine Mucus (None) /hpf Microbiology - Last 24 Hours (Table) 06/24/18 18:50 Urine Culture - Preliminary Urine,Catheterized Assessment and Plan Assessment: Assessment Severe sepsis with sepsis shock Acute hypercapnic respiratory failure Acute on chronic hypoxic respiratory failure Acute exacerbation of COPD Bilateral pneumonia History of CAD Dementia A. fib with RVR History of hypertension Hyperlipidemia Component of pulmonary hypertension per echocardiogram Plan Medications have been reviewed and will be continued as ordered. Antibiotics per ID Solu-Medrol taper ICU management per Dr. Carver Cardiology on consult appreciate recommendations Echocardiogram reviewed, EF of 50-55% with RVSP of 44.92 BiPAP as needed Continue with pulmonary hygiene, coughing and deep breathing exercises, and supportive care. Supplemental oxygen to maintain oxygen saturations of 92% or better. Continue nebulizer treatments. Budesonide and DuoNeb GI and DVT prophylaxis. Protonix and heparin We will continue to monitor labs/results and adjust treatment as necessary. Thank you for this consultation we will continue to follow this patient with you Further recommendations pending. I, the signing physician performed an examination of the patient, discussed and directed their management with the nurse practitioner. I have reviewed the nurse practitioner's note and agree with the documented findings, orders and plan of care.
[2018-06-25] MEDS: AMIODARONE 200 MG TAB PO SCH ×2 (10:13→20:33)
[2018-06-25] MEDS: VANCOMYCIN 1,000 MG in SODIUM CHLORIDE 0.9% 250 ML IVPB SCH (11:03)
[2018-06-25 11:33] LABS: ABG Base Excess 6.9 mmol/L; ABG HCO3 32 mmol/L (21-25); ABG Oxygen Saturation 95.9 % (94-97); ABG PCO2 50 mmHg (35-45); ABG PH 7.41 (7.35-7.45); ABG PO2 77 mmHg (83-108); ABG TCO2 33 mmol/L (19-24)
[2018-06-25 12:04] LABS: Glucose,Whole Blood 178 mg/dL (75-99)
--- NOTE | 2018-06-25 13:04 | P.PN ---
Subjective Progress Note Date: 06/25/18 This is an 83-year old male with a past medical history of CHF, COPD, chronic kidney disease stage III, and chronic respiratory failure. The patient presented to [facility] with respiratory distress, from there he was transferred to [facility]. He is found to have bilateral pneumonia. Patient is quite confused and a very poor historian. While in the emergency department did go into A.fib with RVR and did have significant hypotension. He required a central line and vasopressors were started at 10mcg/min. His chest xray revealed COPD as well as bilateral pneumonia. ABG showed a PH of 7.3, pCO2 58, pO2 68, HCO3 of 30, consistent with hypercapnia, hypoxia and respiratory acidosis. He was started on Cardizem IV, he did converted to normal sinus rhythm , Cardizem was discontinued and he was started on Amiodarone and a heparin infusion. Blood and sputum cultures were obtained, he was started on Levofloxacin, Zosyn, and Vancomycin and transferred to the ICU unit. 06/25: Patient remains in the intensive care unit and has been hemodynamically stable. Blood pressure is on the low side. He is in a sinus rhythm. IV amiodarone has been discontinued and started oral Vicodin Dr. Marti. Patient remains on heparin drip. Patient is also followed by pulmonary medicine. He has been off norepinephrine since [address] Carver has cleared him for transfer out of the intensive care unit. He is currently on Levaquin, Zosyn and vancomycin. Dr. Bedoya is on consult. Solu-Medrol is at 40 mg every 12 hours. Patient is very concerned that he does not have his hearing aids or dentures. CODE STATUS has been clarified with daughter and son which is DO NOT RESUSCITATE. Patient continues to have mild confusion. Review Of Systems: Constitutional: No fever, no chills, no night sweats. EENT: No headache. + loss of Hearing. No epistaxis. No sore throat. Lungs: No shortness of breath, cough, no sputum production. No wheezing. Cardiovascular: No chest pain, no lower extremity edema. No orthopnea. No lightheadedness or dizziness. No syncopal episodes. Abdominal: No abdominal pain. No nausea, vomiting. No diarrhea. No constipation. No bloody or tarry stools. Genitourinary: No dysuria, increased frequency, urgency. No urinary retention. Musculoskeletal: No myalgias. + muscle weakness. Integumentary: Skin tears left arm. No rash or pruritus. No unusual bruising. No change in hair or nails. Psychiatric: No depression. No anxiety. Objective - Vital Signs Vital signs: Vital Signs Temp 98.3 F 06/25/18 08:00 Pulse 69 06/25/18 09:57 Resp 16 06/25/18 08:30 BP 114/92 06/25/18 08:30 Pulse Ox 95 06/25/18 08:30 Intake & Output 06/24/18 06/25/18 06/25/18 18:59 06:59 18:59 Intake Total 828.385 6621.707 176.7 Output Total 620 442 280 Balance 30.857 896.707 -103.3 Weight 50.1 kg 57.7 kg Intake: IV 340.0 563.7 56.7 Albumin Human 25% 50 ml 50 In Empty Bag 1 bag @ 100 mls/hr IVPB ONCE ONE Rx#: [id number] Amiodarone 450 mg In 173.7 16.7 Dextrose 5% in Water 250 ml @ 1 MG/MIN 33.33 mls/ hr IV .Q7H31M [facility] Rx#: [id number] Dextrose 5% in Water 100 150 ml @ 618 mls/hr IV .Q10M ONE with Amiodarone 150 mg Rx#:[id number] Piperacillin-Tazobactam 3 50.0 100 .375 gm In Dextrose/Water 1 50ml.bag @ 12.5 mls/hr IVPB Q8HR [facility] Rx#: [id number] Sodium Chloride 0.9% 1, 140 240 40 000 ml @ 20 mls/hr IV . Q24H [facility] Rx#:[id number] Intake, IV Titration 70.857 555.007 20 Amount Amiodarone 450 mg In 402.682 Dextrose 5% in Water 250 ml @ 1 MG/MIN 33.33 mls/ hr IV .Q7H31M [facility] Rx#: [id number] Heparin Sod,Pork in 0.45% 106.003 NaCl 25,000 unit In 0.45 % NaCl 1 500ml.bag @ 12 UNITS/KG/HR 11.8 mls/hr IV .Q24H [facility] Rx#: [id number] Norepinephrine 16 mg In 70.857 46.322 Sodium Chloride 0.9% 250 ml @ Titrate IV .Q0M [facility] Rx#:[id number] Sodium Chloride 0.9% 1, 20 000 ml @ 20 mls/hr IV . Q24H [facility] Rx#:[id number] Oral 240 220 100 Output: Urine 620 442 280 Other: Voiding Method Indwelling Catheter Indwelling Catheter - Exam General appearance: cooperative, disheveled, mild distress - EENT Eyes: EOMI, PERRLA ENT: hard of hearing, normal oropharynx, edentulous Ears: bilateral: normal - Neck Neck: normal ROM Carotids: bilateral: upstroke normal - Respiratory Respiratory: bilateral: diminished, dullness, rales, rhonchi, wheezing, prolonged expiration - Cardiovascular Distant heart sounds Rhythm: regular Heart sounds: normal: S1, S2 - Gastrointestinal General gastrointestinal: no distended, no hepatomegaly, normal bowel sounds, no organomegaly, soft, no splenomegaly, no tenderness, Berry in place with clear reshma return - Neurologic Neurologic: CNII-XII intact - Musculoskeletal Musculoskeletal: generalized weakness, strength equal bilaterally - Psychiatric Mildly confused, oriented to person, cooperative - Labs CBC & Chem 7: 06/25/18 07:09 06/25/18 07:09 Labs: Abnormal Lab Results - Last 24 Hours (Table) 06/24/18 06/24/18 06/24/18 Range/Units 07:31 11:44 12:20 RBC 3.06 L (4.30-5.90) m/uL Hgb 10.2 L (13.0-17.5) gm/dL Hct 31.8 L (39.0-53.0) % MCV 103.8 H (80.0-100.0) fL Lymphocytes # (1.0-4.8) k/uL Lymphocytes # (Manual) 0.26 L (1.0-4.8) k/uL Metamyelocytes # (Man) 0.26 H (0) k/uL INR (<1.2) APTT (22.0-30.0) sec Sodium (137-145) mmol/L Potassium (3.5-5.1) mmol/L Chloride (98-107) mmol/L Carbon Dioxide (22-30) mmol/L BUN 78 H (9-20) mg/dL Creatinine 1.38 H (0.66-1.25) mg/dL Glucose 148 H (74-99) mg/dL POC Glucose (mg/dL) 156 H (75-99) mg/dL Calcium 7.9 L (8.4-10.2) mg/dL Alkaline Phosphatase (38-126) U/L Total Protein (6.3-8.2) g/dL Albumin (3.5-5.0) g/dL Urine Protein (Negative) Urine Blood (Negative) Uric Acid Crystals (None) /hpf Amorphous Sediment (None) /hpf Urine Bacteria (None) /hpf Urine Mucus (None) /hpf 06/24/18 06/24/18 06/24/18 Range/Units 12:20 18:50 19:37 RBC (4.30-5.90) m/uL Hgb (13.0-17.5) gm/dL Hct (39.0-53.0) % MCV (80.0-100.0) fL Lymphocytes # (1.0-4.8) k/uL Lymphocytes # (Manual) (1.0-4.8) k/uL Metamyelocytes # (Man) (0) k/uL INR 1.2 H (<1.2) APTT 34.4 H 42.6 H (22.0-30.0) sec Sodium (137-145) mmol/L Potassium (3.5-5.1) mmol/L Chloride (98-107) mmol/L Carbon Dioxide (22-30) mmol/L BUN (9-20) mg/dL Creatinine (0.66-1.25) mg/dL Glucose (74-99) mg/dL POC Glucose (mg/dL) (75-99) mg/dL Calcium (8.4-10.2) mg/dL Alkaline Phosphatase (38-126) U/L Total Protein (6.3-8.2) g/dL Albumin (3.5-5.0) g/dL Urine Protein Trace H (Negative) Urine Blood Trace H (Negative) Uric Acid Crystals Many H (None) /hpf Amorphous Sediment Occasional H (None) /hpf Urine Bacteria Rare H (None) /hpf Urine Mucus Rare H (None) /hpf 06/24/18 06/24/18 06/25/18 Range/Units 20:42 20:52 06:13 RBC (4.30-5.90) m/uL Hgb (13.0-17.5) gm/dL Hct (39.0-53.0) % MCV (80.0-100.0) fL Lymphocytes # (1.0-4.8) k/uL Lymphocytes # (Manual) (1.0-4.8) k/uL Metamyelocytes # (Man) (0) k/uL INR (<1.2) APTT (22.0-30.0) sec Sodium (137-145) mmol/L Potassium 3.2 L (3.5-5.1) mmol/L Chloride (98-107) mmol/L Carbon Dioxide (22-30) mmol/L BUN 72 H (9-20) mg/dL Creatinine 1.32 H (0.66-1.25) mg/dL Glucose 179 H (74-99) mg/dL POC Glucose (mg/dL) 181 H 167 H (75-99) mg/dL Calcium (8.4-10.2) mg/dL Alkaline Phosphatase (38-126) U/L Total Protein (6.3-8.2) g/dL Albumin (3.5-5.0) g/dL Urine Protein (Negative) Urine Blood (Negative) Uric Acid Crystals (None) /hpf Amorphous Sediment (None) /hpf Urine Bacteria (None) /hpf Urine Mucus (None) /hpf 06/25/18 06/25/18 06/25/18 Range/Units 07:09 07:09 07:09 RBC 2.73 L (4.30-5.90) m/uL Hgb 9.2 L (13.0-17.5) gm/dL Hct 28.5 L (39.0-53.0) % MCV 104.2 H (80.0-100.0) fL Lymphocytes # 0.1 L (1.0-4.8) k/uL Lymphocytes # (Manual) (1.0-4.8) k/uL Metamyelocytes # (Man) (0) k/uL INR (<1.2) APTT 39.7 H (22.0-30.0) sec Sodium 147 H (137-145) mmol/L Potassium (3.5-5.1) mmol/L Chloride 109 H (98-107) mmol/L Carbon Dioxide 32 H (22-30) mmol/L BUN 68 H (9-20) mg/dL Creatinine 1.29 H (0.66-1.25) mg/dL Glucose 142 H (74-99) mg/dL POC Glucose (mg/dL) (75-99) mg/dL Calcium (8.4-10.2) mg/dL Alkaline Phosphatase 36 L (38-126) U/L Total Protein 4.6 L (6.3-8.2) g/dL Albumin 2.4 L (3.5-5.0) g/dL Urine Protein (Negative) Urine Blood (Negative) Uric Acid Crystals (None) /hpf Amorphous Sediment (None) /hpf Urine Bacteria (None) /hpf Urine Mucus (None) /hpf 06/25/18 Range/Units 07:20 RBC (4.30-5.90) m/uL Hgb (13.0-17.5) gm/dL Hct (39.0-53.0) % MCV (80.0-100.0) fL Lymphocytes # (1.0-4.8) k/uL Lymphocytes # (Manual) (1.0-4.8) k/uL Metamyelocytes # (Man) (0) k/uL INR (<1.2) APTT (22.0-30.0) sec Sodium (137-145) mmol/L Potassium (3.5-5.1) mmol/L Chloride (98-107) mmol/L Carbon Dioxide (22-30) mmol/L BUN (9-20) mg/dL Creatinine (0.66-1.25) mg/dL Glucose (74-99) mg/dL POC Glucose (mg/dL) 154 H (75-99) mg/dL Calcium (8.4-10.2) mg/dL Alkaline Phosphatase (38-126) U/L Total Protein (6.3-8.2) g/dL Albumin (3.5-5.0) g/dL Urine Protein (Negative) Urine Blood (Negative) Uric Acid Crystals (None) /hpf Amorphous Sediment (None) /hpf Urine Bacteria (None) /hpf Urine Mucus (None) /hpf Microbiology - Last 24 Hours (Table) 06/24/18 18:50 Urine Culture - Preliminary Urine,Catheterized Assessment and Plan Plan: 1. Acute hypercapnic hypoxic respiratory failure on chronic respiratory failure secondary to COPD and bilateral pneumonia. Continue nebulizers Q4 hours with Pulmicort BID, Solumedol 40mg IV Q12. Continue Zosyn, Vancomycin, and Levofloxacin. Patient is currently on nasal cannula. Consults with pulmonary medicine, infectious disease appreciated 2. Septic shock secondary to bilaterial pneumonia. Infectious disease consulted , continue Zosyn, Vancomycin, and Levofloxacin. Blood and sputum cultures ordered, will also check for influenza. Continue Norepinephrine currently at 10mcg/min. 3. Acute COPD exacerbation. Continue antibiotics, nebulizers, pulmicort, solumedrol and continue with supplemental oxygen 4. A.Fib with RVR with paroxysmal atrial fibrillation currently in sinus rhythm. Amiodarone drip changed to oral. Continue heparin drip. Cardiology consult appreciated. 5. Cachexia with severe protein calorie malnutrition with BMI of 19. Ensure oral supplement ordered. 6. Hypertension. Currently hypotensive, zestril and metoprolol held 7. Hyperlipidemia. May continue on Atorvastatin 40mg daily 8. DVT prophylaxis. On heparin infusion 9. GI prophylaxis. Protonix 40mg daily Discharge plan: To be determined Impression and plan of care have been directed as dictated by the signing physician. Roxanna Gan nurse practitioner acting as scribe for signing physician.
[2018-06-25 13:06] LABS: Glucose,Whole Blood 177 mg/dL (75-99)
[2018-06-25] MEDS: HEPARIN SOD,PORK IN 0.45% NACL 25,000 UNIT in 0.45% NACL 1 500ML.BAG IV SCH (14:13)
[2018-06-25 14:57] LABS: Hemoglobin A1C 5.7 % (4.0-6.0)
[2018-06-25 16:38] LABS: Glucose,Whole Blood 161 mg/dL (75-99)
[2018-06-25] MEDS ORDERED: POTASSIUM CHLORIDE ER 20 MEQ TAB.ER PO SCH (19:00)
--- NOTE | 2018-06-25 20:06 | P.PN ---
Subjective Progress Note Date: 06/25/18 Principal diagnosis: Bilateral pneumonia, acute hypoxic respiratory failure, atrial fibrillation with rapid ventricular response, generalized weakness and medical debility, severe sepsis and septic shock related to bilateral pneumonia 06/25/2018, patient seen eval reexamined during the rounds today he remains on supplemental oxygen LK more awake and alert is breathing more comfortably, he remains on supplemental oxygen with 5 L his mental status is improved he is status post echocardiogram results and reports are reviewed patient has a fairly well ejection fraction of 50% however some component of pulmonary hypertension as noted likely multifactorial patient is now off of vasopressors he is tolerating by mouth relatively well he is being changed from IV amiodarone to oral cardiovascular services following blood gases not performed today we'll do a blood gas prior to transfer out of the ICU, labs reviewed medications reviewed radiographic studies reviewed as well critical care time spent 35 minutes 83-year-old male who is a resident of [facility] admitted a large has baseline problems associated with chronic hypoxic respiratory failure end- stage lung disease and severe COPD emphysema patient was noted to be more short of breath and has a confusion and altered mental status and was eventually transferred to [facility] emergency department where he was seen eval reexamined subsequently transferred to the emergency department at [facility] on arrival he was hypotensive treated require crystalloid challenge followed by a vasopressors a central line has been placed by the emergency room physician patient is being placed on the 10 mics of levo fed his blood pressure is now 90/ 60 patient's saturation is 98% on 6 L oxygen, he is awake but the does not give any detailed history he has obvious short leg shortness of breath I reviewed his arterial blood gas performed stat basis he has component of hypercapnia and respiratory acidosis, his chest x-ray revealed COPD-like process of bilateral consolidation along with pleural effusion, pleural effusion appears to be small consolidation is mostly on the basal area central line in his left internal jugular, patient had an episode of A. fib with rapid ventricular response however responded with Cardizem drip and is back to sinus rhythm Objective - Vital Signs Vital signs: Vital Signs Temp 97.6 F 06/25/18 16:00 Pulse 57 L 06/25/18 17:20 Resp 19 06/25/18 16:00 BP 118/63 06/25/18 16:00 Pulse Ox 98 06/25/18 16:00 Intake & Output 10/06/25/18 06/26/18 06:59 18:59 06:59 Intake Total 1602.680 1696.754 20 Output Total 442 650 125 Balance 896.707 656.754 -105 Weight 57.7 kg Intake: IV 563.7 236.7 20 Albumin Human 25% 50 ml 50 In Empty Bag 1 bag @ 100 mls/hr IVPB ONCE ONE Rx#: [id number] Amiodarone 450 mg In 173.7 16.7 Dextrose 5% in Water 250 ml @ 1 MG/MIN 33.33 mls/ hr IV .Q7H31M [facility] Rx#: [id number] Piperacillin-Tazobactam 3 100 .375 gm In Dextrose/Water 1 50ml.bag @ 12.5 mls/hr IVPB Q8HR [facility] Rx#: [id number] Sodium Chloride 0.9% 1, 240 220 20 000 ml @ 20 mls/hr IV . Q24H [facility] Rx#:[id number] Intake, IV Titration 555.007 290.054 Amount Amiodarone 450 mg In 402.682 Dextrose 5% in Water 250 ml @ 1 MG/MIN 33.33 mls/ hr IV .Q7H31M [facility] Rx#: [id number] Heparin Sod,Pork in 0.45% 106.003 235.054 NaCl 25,000 unit In 0.45 % NaCl 1 500ml.bag @ 12 UNITS/KG/HR 11.8 mls/hr IV .Q24H [facility] Rx#: [id number] Norepinephrine 16 mg In 46.322 Sodium Chloride 0.9% 250 ml @ Titrate IV .Q0M [facility] Rx#:[id number] Sodium Chloride 0.9% 1, 55 000 ml @ 20 mls/hr IV . Q24H [facility] Rx#:[id number] Oral 220 780 Output: Urine 442 650 125 Other: Voiding Method Indwelling Catheter Indwelling Catheter - Exam - Constitutional General appearance: cooperative, disheveled, mild distress - EENT Eyes: EOMI, PERRLA, poor dentition, normal appearance ENT: hard of hearing, normal oropharynx Ears: bilateral: normal - Neck Neck: normal ROM Carotids: bilateral: upstroke normal Thyroid: bilateral: normal size - Respiratory Respiratory: bilateral: diminished, dullness (Bilateral basis less than one fourth of the lung), rales (Crackles at the bases), rhonchi (Expiratory), wheezing (Bilateral expiratory), prolonged expiration, negative: prolonged inspiration, other, overall improved exam compared to yesterday - Cardiovascular Rhythm: regular Heart sounds: normal: S1, S2 - Gastrointestinal General gastrointestinal: soft - Neurologic Neurologic: CNII-XII intact - Musculoskeletal Musculoskeletal: generalized weakness, strength equal bilaterally - Psychiatric Psychiatric: A&O x's 3 Very slow to respon - Labs CBC & Chem 7: 06/25/18 07:09 06/25/18 16:05 Labs: Abnormal Lab Results - Last 24 Hours (Table) 06/24/18 06/24/18 06/24/18 Range/Units 19:37 20:42 20:52 RBC (4.30-5.90) m/uL Hgb (13.0-17.5) gm/dL Hct (39.0-53.0) % MCV (80.0-100.0) fL Lymphocytes # (1.0-4.8) k/uL APTT 42.6 H (22.0-30.0) sec ABG pCO2 (35-45) mmHg ABG pO2 (83-108) mmHg ABG HCO3 (21-25) mmol/L ABG Total CO2 (19-24) mmol/L Sodium (137-145) mmol/L Potassium 3.2 L (3.5-5.1) mmol/L Chloride (98-107) mmol/L Carbon Dioxide (22-30) mmol/L BUN 72 H (9-20) mg/dL Creatinine 1.32 H (0.66-1.25) mg/dL Glucose 179 H (74-99) mg/dL POC Glucose (mg/dL) 181 H (75-99) mg/dL Alkaline Phosphatase (38-126) U/L Total Protein (6.3-8.2) g/dL Albumin (3.5-5.0) g/dL 06/25/18 06/25/18 06/25/18 Range/Units 06:13 07:09 07:09 RBC 2.73 L (4.30-5.90) m/uL Hgb 9.2 L (13.0-17.5) gm/dL Hct 28.5 L (39.0-53.0) % MCV 104.2 H (80.0-100.0) fL Lymphocytes # 0.1 L (1.0-4.8) k/uL APTT (22.0-30.0) sec ABG pCO2 (35-45) mmHg ABG pO2 (83-108) mmHg ABG HCO3 (21-25) mmol/L ABG Total CO2 (19-24) mmol/L Sodium 147 H (137-145) mmol/L Potassium (3.5-5.1) mmol/L Chloride 109 H (98-107) mmol/L Carbon Dioxide 32 H (22-30) mmol/L BUN 68 H (9-20) mg/dL Creatinine 1.29 H (0.66-1.25) mg/dL Glucose 142 H (74-99) mg/dL POC Glucose (mg/dL) 167 H (75-99) mg/dL Alkaline Phosphatase 36 L (38-126) U/L Total Protein 4.6 L (6.3-8.2) g/dL Albumin 2.4 L (3.5-5.0) g/dL 06/25/18 06/25/18 06/25/18 Range/Units 07:09 07:20 11:29 RBC (4.30-5.90) m/uL Hgb (13.0-17.5) gm/dL Hct (39.0-53.0) % MCV (80.0-100.0) fL Lymphocytes # (1.0-4.8) k/uL APTT 39.7 H (22.0-30.0) sec ABG pCO2 50 H (35-45) mmHg ABG pO2 77 L (83-108) mmHg ABG HCO3 32 H (21-25) mmol/L ABG Total CO2 33 H (19-24) mmol/L Sodium (137-145) mmol/L Potassium (3.5-5.1) mmol/L Chloride (98-107) mmol/L Carbon Dioxide (22-30) mmol/L BUN (9-20) mg/dL Creatinine (0.66-1.25) mg/dL Glucose (74-99) mg/dL POC Glucose (mg/dL) 154 H (75-99) mg/dL Alkaline Phosphatase (38-126) U/L Total Protein (6.3-8.2) g/dL Albumin (3.5-5.0) g/dL 06/25/18 06/25/18 06/25/18 Range/Units 11:52 12:54 16:05 RBC (4.30-5.90) m/uL Hgb (13.0-17.5) gm/dL Hct (39.0-53.0) % MCV (80.0-100.0) fL Lymphocytes # (1.0-4.8) k/uL APTT 48.4 H (22.0-30.0) sec ABG pCO2 (35-45) mmHg ABG pO2 (83-108) mmHg ABG HCO3 (21-25) mmol/L ABG Total CO2 (19-24) mmol/L Sodium (137-145) mmol/L Potassium (3.5-5.1) mmol/L Chloride (98-107) mmol/L Carbon Dioxide (22-30) mmol/L BUN (9-20) mg/dL Creatinine (0.66-1.25) mg/dL Glucose (74-99) mg/dL POC Glucose (mg/dL) 178 H 177 H (75-99) mg/dL Alkaline Phosphatase (38-126) U/L Total Protein (6.3-8.2) g/dL Albumin (3.5-5.0) g/dL 06/25/18 Range/Units 16:27 RBC (4.30-5.90) m/uL Hgb (13.0-17.5) gm/dL Hct (39.0-53.0) % MCV (80.0-100.0) fL Lymphocytes # (1.0-4.8) k/uL APTT (22.0-30.0) sec ABG pCO2 (35-45) mmHg ABG pO2 (83-108) mmHg ABG HCO3 (21-25) mmol/L ABG Total CO2 (19-24) mmol/L Sodium (137-145) mmol/L Potassium (3.5-5.1) mmol/L Chloride (98-107) mmol/L Carbon Dioxide (22-30) mmol/L BUN (9-20) mg/dL Creatinine (0.66-1.25) mg/dL Glucose (74-99) mg/dL POC Glucose (mg/dL) 161 H (75-99) mg/dL Alkaline Phosphatase (38-126) U/L Total Protein (6.3-8.2) g/dL Albumin (3.5-5.0) g/dL Microbiology - Last 24 Hours (Table) 06/24/18 07:31 Blood Culture - Preliminary Blood No Growth after 24 hours 06/24/18 07:31 Blood Culture - Preliminary Blood No Growth after 24 hours 06/24/18 18:50 Urine Culture - Preliminary Urine,Catheterized Assessment and Plan Assessment: Bilateral pneumonia Severe sepsis associated with bilateral pneumonia and septic shock Acute hypoxic and hypercapnic respiratory failure, Acute COPD exacerbation, Coronary artery disease Pulmonary hypertension likely related to cor pulmonale Altered mental status multifactorial process Hypercapnic hypoxic respiratory failure acute on chronic A. fib with rapid ventricular response likely related to above Advanced dementia and Alzheimer's disease Plan: Aggressive rehydration Vasopressors, monitor off of them Broad spectrum antibiotics Breathing treatments IV steroids DVT and peptic ulcer disease prophylaxis Repeat labs x-rays tomorrow Further recommendations pending plan of care as per clinical response of the patient Repeat arterial blood gas later on today remains stable can moved out of the ICU Critical care time spent 35 minutes Time with Patient: Greater than 30
[2018-06-25 21:10] LABS: Glucose,Whole Blood 169 mg/dL (75-99)
--- NOTE | 2018-06-25 23:20 | PN ---
PROGRESS NOTE DATE OF SERVICE: 06/25/2018 REASON FOR FOLLOWUP: Pneumonia. INTERVAL HISTORY: The patient is currently afebrile. He is more awake, alert. He is breathing comfortably. He did have a cough bringing up some sputum. He is currently off the pressor support. No nausea or vomiting. No abdominal pain, no diarrhea. EXAMINATION: Blood pressure 119/63 with a pulse of 55, temperature 97.6. He is 98% on room air. General description is an elderly male lying in bed in no distress. RESPIRATORY SYSTEM: Unlabored breathing. Coarse breath sounds bilaterally. No wheeze. HEART: S1, S2. Regular rate and rhythm. ABDOMEN: Soft, no tenderness. EXTREMITIES: No edema of the feet. LABS: Hemoglobin 9.2, white count 7.0, BUN of 58, creatinine 1.29. Blood culture currently pending. Sputum not collected. DIAGNOSTIC IMPRESSION AND PLAN: Patient admitted to the hospital with difficulty in breathing, which is likely multifactorial in this patient who did have a component of possible pneumonia with concern for possible resistant gram-positive and gram-negative. He is currently covered with Zosyn . We will try to obtain a sputum to narrow the antibiotics. Continue supportive care. MMODL / IJN: [id number] /
[2018-06-26] MEDS: PIPERACILLIN-TAZOBACTAM 3.375 GM in DEXTROSE/WATER 1 50ML.BAG IVPB SCH ×3 (04:41→20:15)
[2018-06-26] MEDS: SODIUM CHLORIDE 0.9% 1,000 ML IV SCH (05:00)
[2018-06-26 05:53] LABS: Basophils % (A) 0 %; Eosinophils % (A) 0 %; HCT 28.7 % (39.0-53.0); HGB 9.1 gm/dL (13.0-17.5); Hypochromasia Slight; Lymphocytes # (A) 0.1 k/uL (1.0-4.8); Lymphocytes % (A) 2 %; MCH 32.9 pg (25.0-35.0); MCHC 31.5 g/dL (31.0-37.0); MCV 104.6 fL (80.0-100.0); Macrocytosis Slight; Mean Platelet Volume 7.4; Monocytes # (A) 0.2 k/uL (0-1.0); Monocytes % (A) 3 %; Neutrophils # (A) 6.5 k/uL (1.3-7.7); Neutrophils % (A) 95 %; Platelet Count 195 k/uL (150-450); RBC 2.75 m/uL (4.30-5.90); RDW 12.5 % (11.5-15.5); WBC 6.9 k/uL (3.8-10.6)
[2018-06-26] MEDS ORDERED: LEVOFLOXACIN 750MG-D5W PMX 750 MG in DEXTROSE/WATER 1 150ML.BAG IVPB SCH (06:00)
[2018-06-26 06:19] LABS: Albumin 2.6 g/dL (3.5-5.0); Calcium 9.3 mg/dL (8.4-10.2); Phosphorus 2.6 mg/dL (2.5-4.5); Potassium 4.4 mmol/L (3.5-5.1); Total Bilirubin 0.4 mg/dL (0.2-1.3); Total Protein 4.8 g/dL (6.3-8.2)
[2018-06-26] MEDS: INSULIN ASPART 100 UNIT/ML 1 ML 10 ML VIAL SQ SCH ×4 (06:56→20:30)
[2018-06-26 07:05] LABS: Glucose,Whole Blood 163 mg/dL (75-99)
--- NOTE | 2018-06-26 07:17 | P.PN ---
Subjective Progress Note Date: 06/26/18 Principal diagnosis: Paroxysmal atrial fibrillation The patient is an 83-year-old gentleman who was transferred from [facility] to [facility] after he was diagnosed with bilateral pneumonia at [facility]. Currently the patient is on BiPAP and he is confused and poor historian and the history was taken mainly from the chart as well as from the nurse taking care of the patient. The patient does have an extensive past medical history consistent off advanced chronic obstructive pulmonary disease as well as chronic respiratory failure and he resides at an extended care facility. Beside that he does have underlying dementia, coronary artery disease, hypertension, and dyslipidemia. On follow-up with the patient today, June 262017, the patient continues to be hemodynamically stable. The blood pressure is on the low side. The heart rate has been also on the low side. He has been maintaining normal sinus mechanism. I will decrease the dose of amiodarone to 200 mg by mouth twice a day. Objective - Vital Signs Vital signs: Vital Signs Temp 97.8 F 06/26/18 04:00 Pulse 56 L 06/26/18 04:00 Resp 23 06/26/18 04:00 BP 117/65 06/26/18 04:00 Pulse Ox 97 06/26/18 04:00 Intake & Output 06/25/18 06/26/18 06/26/18 18:59 06:59 18:59 Intake Total 3497.106 2370.388 Output Total 650 475 Balance 656.754 733.388 Weight 62.8 kg Intake: IV 236.7 180 Amiodarone 450 mg In 16.7 Dextrose 5% in Water 250 ml @ 1 MG/MIN 33.33 mls/ hr IV .Q7H31M [facility] Rx#: [id number] Sodium Chloride 0.9% 1, 220 180 000 ml @ 20 mls/hr IV . Q24H [facility] Rx#:[id number] Intake, IV Titration 290.054 278.388 Amount Heparin Sod,Pork in 0.45% 235.054 278.388 NaCl 25,000 unit In 0.45 % NaCl 1 500ml.bag @ 12 UNITS/KG/HR 11.8 mls/hr IV .Q24H [facility] Rx#: [id number] Sodium Chloride 0.9% 1, 55 000 ml @ 20 mls/hr IV . Q24H [facility] Rx#:[id number] Oral 780 750 Output: Urine 650 475 Other: Voiding Method Indwelling Catheter Indwelling Catheter - Constitutional General appearance: Present: no acute distress - Respiratory Respiratory: bilateral: diminished - Cardiovascular Rhythm: regular Heart sounds: normal: S1, S2 - Labs CBC & Chem 7: 06/26/18 04:53 06/26/18 04:53 Labs: Abnormal Lab Results - Last 24 Hours (Table) 06/25/18 06/25/18 06/25/18 Range/Units 07:09 07:09 07:09 RBC 2.73 L (4.30-5.90) m/uL Hgb 9.2 L (13.0-17.5) gm/dL Hct 28.5 L (39.0-53.0) % MCV 104.2 H (80.0-100.0) fL Lymphocytes # 0.1 L (1.0-4.8) k/uL APTT 39.7 H (22.0-30.0) sec ABG pCO2 (35-45) mmHg ABG pO2 (83-108) mmHg ABG HCO3 (21-25) mmol/L ABG Total CO2 (19-24) mmol/L Sodium 147 H (137-145) mmol/L Chloride 109 H (98-107) mmol/L Carbon Dioxide 32 H (22-30) mmol/L BUN 68 H (9-20) mg/dL Creatinine 1.29 H (0.66-1.25) mg/dL Glucose 142 H (74-99) mg/dL POC Glucose (mg/dL) (75-99) mg/dL Alkaline Phosphatase 36 L (38-126) U/L Total Protein 4.6 L (6.3-8.2) g/dL Albumin 2.4 L (3.5-5.0) g/dL 06/25/18 06/25/18 06/25/18 Range/Units 07:20 11:29 11:52 RBC (4.30-5.90) m/uL Hgb (13.0-17.5) gm/dL Hct (39.0-53.0) % MCV (80.0-100.0) fL Lymphocytes # (1.0-4.8) k/uL APTT (22.0-30.0) sec ABG pCO2 50 H (35-45) mmHg ABG pO2 77 L (83-108) mmHg ABG HCO3 32 H (21-25) mmol/L ABG Total CO2 33 H (19-24) mmol/L Sodium (137-145) mmol/L Chloride (98-107) mmol/L Carbon Dioxide (22-30) mmol/L BUN (9-20) mg/dL Creatinine (0.66-1.25) mg/dL Glucose (74-99) mg/dL POC Glucose (mg/dL) 154 H 178 H (75-99) mg/dL Alkaline Phosphatase (38-126) U/L Total Protein (6.3-8.2) g/dL Albumin (3.5-5.0) g/dL 06/25/18 06/25/18 06/25/18 Range/Units 12:54 16:05 16:27 RBC (4.30-5.90) m/uL Hgb (13.0-17.5) gm/dL Hct (39.0-53.0) % MCV (80.0-100.0) fL Lymphocytes # (1.0-4.8) k/uL APTT 48.4 H (22.0-30.0) sec ABG pCO2 (35-45) mmHg ABG pO2 (83-108) mmHg ABG HCO3 (21-25) mmol/L ABG Total CO2 (19-24) mmol/L Sodium (137-145) mmol/L Chloride (98-107) mmol/L Carbon Dioxide (22-30) mmol/L BUN (9-20) mg/dL Creatinine (0.66-1.25) mg/dL Glucose (74-99) mg/dL POC Glucose (mg/dL) 177 H 161 H (75-99) mg/dL Alkaline Phosphatase (38-126) U/L Total Protein (6.3-8.2) g/dL Albumin (3.5-5.0) g/dL 06/25/18 06/26/18 06/26/18 Range/Units 20:58 04:53 04:53 RBC 2.75 L (4.30-5.90) m/uL Hgb 9.1 L (13.0-17.5) gm/dL Hct 28.7 L (39.0-53.0) % MCV 104.6 H (80.0-100.0) fL Lymphocytes # 0.1 L (1.0-4.8) k/uL APTT (22.0-30.0) sec ABG pCO2 (35-45) mmHg ABG pO2 (83-108) mmHg ABG HCO3 (21-25) mmol/L ABG Total CO2 (19-24) mmol/L Sodium (137-145) mmol/L Chloride (98-107) mmol/L Carbon Dioxide 33 H (22-30) mmol/L BUN 65 H (9-20) mg/dL Creatinine (0.66-1.25) mg/dL Glucose 136 H (74-99) mg/dL POC Glucose (mg/dL) 169 H (75-99) mg/dL Alkaline Phosphatase (38-126) U/L Total Protein 4.8 L (6.3-8.2) g/dL Albumin 2.6 L (3.5-5.0) g/dL 06/26/18 06/26/18 Range/Units 04:53 06:54 RBC (4.30-5.90) m/uL Hgb (13.0-17.5) gm/dL Hct (39.0-53.0) % MCV (80.0-100.0) fL Lymphocytes # (1.0-4.8) k/uL APTT 79.7 H (22.0-30.0) sec ABG pCO2 (35-45) mmHg ABG pO2 (83-108) mmHg ABG HCO3 (21-25) mmol/L ABG Total CO2 (19-24) mmol/L Sodium (137-145) mmol/L Chloride (98-107) mmol/L Carbon Dioxide (22-30) mmol/L BUN (9-20) mg/dL Creatinine (0.66-1.25) mg/dL Glucose (74-99) mg/dL POC Glucose (mg/dL) 163 H (75-99) mg/dL Alkaline Phosphatase (38-126) U/L Total Protein (6.3-8.2) g/dL Albumin (3.5-5.0) g/dL Microbiology - Last 24 Hours (Table) 06/25/18 17:12 Sputum Culture - Preliminary Sputum 06/24/18 18:50 Urine Culture - Final Urine,Catheterized 06/24/18 07:31 Blood Culture - Preliminary Blood No Growth after 24 hours 06/24/18 07:31 Blood Culture - Preliminary Blood No Growth after 24 hours Assessment and Plan Assessment: Assessment #1 acute hypoxic respiratory failure #2 COPD exacerbation #3 bilateral pneumonia #4 known advanced COPD #5 known chronic respiratory failure #6 paroxysmal atrial fibrillation #7 coronary artery disease "by history" #8 hypertension #9 dyslipidemia #10 underlying dementia Plan #1 decrease the dose of amiodarone by mouth #2 continue the current medical regimen #3 DC heparin IV and start oral anticoagulation #4 the echo was reviewed and revealed normal LV function #5 follow-up with the patient Thank you for allowing us participate in his care and we'll continue following up with the patient
[2018-06-26 07:47] LABS: Glucose,Whole Blood 151 mg/dL (75-99)
[2018-06-26] MEDS: BUDESONIDE 0.5 MG/2 ML NEBU INHALATION SCH ×2 (09:25→20:26)
[2018-06-26] MEDS: IPRATROPIUM-ALBUTEROL 3 ML NEB INHALATION SCH ×4 (09:25→20:26)
--- NOTE | 2018-06-26 09:27 | XR ---
EXAMINATION TYPE: XR chest 1V portable DATE OF EXAM: 06/26/2018 COMPARISON: 06/25/2018 HISTORY: Pneumonia TECHNIQUE: Single frontal view of the chest is obtained. FINDINGS: Bilateral consolidation and pleural effusion. Diffuse emphysematous changes seen. Calcifie d lymph nodes and right upper lobe granuloma noted. Central line stable. Arthropathy of the shoulders noted. IMPRESSION: 1. Bilateral consolidation and pleural effusion superimposed on a background COPD.
[2018-06-26] MEDS: PANTOPRAZOLE 40 MG TABLET PO SCH (09:46)
[2018-06-26] MEDS: VANCOMYCIN 1,000 MG in SODIUM CHLORIDE 0.9% 250 ML IVPB SCH (09:46)
[2018-06-26] MEDS: methylPREDNISolone SOD SUCCI 40 MG/ML 1 ML VIAL IV SCH ×2 (09:46→20:16)
[2018-06-26] MEDS: AMIODARONE 200 MG TAB PO SCH ×2 (09:46→20:19)
[2018-06-26 12:00] LABS: Glucose,Whole Blood 143 mg/dL (75-99)
--- NOTE | 2018-06-26 12:39 | PN ---
PROGRESS NOTE DATE OF SERVICE: 06/26/2018. INTERVAL HISTORY: Patient is an 83-year-old male who is seen sitting up in bed. He is awake and alert. He is very confused. Patient is well known to me outside of the hospital. I follow him in the office and he is unsure as to what hospital he is in and what his treatment plan is. Patient is off of all pressors. He is afebrile, hemodynamically stable, in no acute distress. PHYSICAL EXAM: VITAL SIGNS: Temp is 97.8, heart rate is 56, respiratory rate is 23, blood pressure is 117/65, O2 SATs 97% on 4 L O2 via nasal cannula. HEENT. Head is normocephalic, atraumatic. Neck is supple. Trachea is midline. LUNGS: With decreased breath sounds. No clear rales or wheezes heart S1, S2 are heard. Regular. Not tachycardic. ABDOMEN: Soft. Bowel sounds are heard. EXTREMITIES: Trace edema. NEUROLOGIC: Patient is awake and alert; however, very confused. LABS: White count 6.9, hemoglobin is 9.1, hematocrit is 28.7 with 195,000 platelets. Sodium is 144, potassium is 4.4, chloride is 107, CO2 is 33, anion gap is 4, BUN 65, creatinine 1.16, glucose is 136, calcium is 9.3, phosphorus 2.6, total bilirubin 0.4, AST 30, ALT 35, alk phos 44, total protein 4.8, albumin is 2.6. Chest x-ray done this a.m. shows bilateral consolidation and pleural effusions superimposed on a background of chronic obstructive pulmonary disease. IMPRESSION: 1. Sepsis with septic shock. 2. Acute hypercapnic respiratory failure. 3. Acute on chronic hypoxic respiratory failure. 4. Acute exacerbation of chronic obstructive pulmonary disease. 5. Bilateral infiltrates. 6. History of coronary artery disease. 7. Metabolic encephalopathy. 8. Paroxysmal atrial fibrillation. 9. History of hypertension. 10.Hyperlipidemia. 11.Right heart failure. PLAN: Continue current medications which have been reviewed. Continue antibiotics per Infectious Disease. Continue IV Solu-Medrol. Continue pulmonary hygiene and incentive spirometry. Continue oxygen to maintain SATs greater than or equal to 90%. Continue bronchodilators and aerosol steroids. Continue GI and DVT prophylaxis. If patient remains in sinus rhythm, will further discuss with Cardiology possibility of treating patient with aspirin and removing Eliquis as to the risk of fall is very high for this patient and will continue to follow patient closely making further changes as necessary. MMODL / IJN: [id number] /
--- NOTE | 2018-06-26 13:37 | P.PN ---
Subjective Progress Note Date: 06/26/18 This is an 83-year old male with a past medical history of CHF, COPD, chronic kidney disease stage III, and chronic respiratory failure. The patient presented to [facility] with respiratory distress, from there he was transferred to [facility]. He is found to have bilateral pneumonia. Patient is quite confused and a very poor historian. While in the emergency department did go into A.fib with RVR and did have significant hypotension. He required a central line and vasopressors were started at 10mcg/min. His chest xray revealed COPD as well as bilateral pneumonia. ABG showed a PH of 7.3, pCO2 58, pO2 68, HCO3 of 30, consistent with hypercapnia, hypoxia and respiratory acidosis. He was started on Cardizem IV, he did converted to normal sinus rhythm , Cardizem was discontinued and he was started on Amiodarone and a heparin infusion. Blood and sputum cultures were obtained, he was started on Levofloxacin, Zosyn, and Vancomycin and transferred to the ICU unit. 06/25: Patient remains in the intensive care unit and has been hemodynamically stable. Blood pressure is on the low side. He is in a sinus rhythm. IV amiodarone has been discontinued and started oral Vicodin Dr. Marti. Patient remains on heparin drip. Patient is also followed by pulmonary medicine. He has been off norepinephrine since [address] Carver has cleared him for transfer out of the intensive care unit. He is currently on Levaquin, Zosyn and vancomycin. Dr. Bedoya is on consult. Solu-Medrol is at 40 mg every 12 hours. Patient is very concerned that he does not have his hearing aids or dentures. CODE STATUS has been clarified with daughter and son which is DO NOT RESUSCITATE. Patient continues to have mild confusion. 06/26: Patient remains in the intensive care unit waiting for bed. Patient states he has intermittent episodes of trouble breathing and is bringing up sputum. Sputum cultures in progress. He does complain of dry mouth but is on humidified oxygen. His heart rate has been running in the 50s and 60s with blood pressure on the lower side for which amiodarone was decreased to 200 mg twice daily by Dr. boston. He has been afebrile. Patient continues to have mild confusion. Review Of Systems: Constitutional: No fever, no chills, no night sweats. EENT: No headache. + loss of Hearing. No epistaxis. No sore throat. Lungs: + shortness of breath, cough, + sputum production. Cardiovascular: No chest pain, no lower extremity edema. No orthopnea. No lightheadedness or dizziness. No syncopal episodes. Abdominal: No abdominal pain. No nausea, vomiting. No diarrhea. No constipation. No bloody or tarry stools. Genitourinary: No dysuria, increased frequency, urgency. No urinary retention. Musculoskeletal: No myalgias. + muscle weakness. Integumentary: Skin tears left arm. No rash or pruritus. No unusual bruising. No change in hair or nails. Psychiatric: No depression. No anxiety. Objective - Vital Signs Vital signs: Vital Signs Temp 97.8 F 06/26/18 04:00 Pulse 58 L 06/26/18 09:48 Resp 23 06/26/18 04:00 BP 117/65 06/26/18 04:00 Pulse Ox 97 06/26/18 04:00 Intake & Output 06/25/18 06/26/18 06/26/18 18:59 06:59 18:59 Intake Total 9298.014 9668.388 Output Total 650 475 Balance 656.754 733.388 Weight 62.8 kg 62.8 kg Intake: IV 236.7 180 Amiodarone 450 mg In 16.7 Dextrose 5% in Water 250 ml @ 1 MG/MIN 33.33 mls/ hr IV .Q7H31M [facility] Rx#: [id number] Sodium Chloride 0.9% 1, 220 180 000 ml @ 20 mls/hr IV . Q24H [facility] Rx#:[id number] Intake, IV Titration 290.054 278.388 Amount Heparin Sod,Pork in 0.45% 235.054 278.388 NaCl 25,000 unit In 0.45 % NaCl 1 500ml.bag @ 12 UNITS/KG/HR 11.8 mls/hr IV .Q24H [facility] Rx#: [id number] Sodium Chloride 0.9% 1, 55 000 ml @ 20 mls/hr IV . Q24H [facility] Rx#:[id number] Oral 780 750 Output: Urine 650 475 Other: Voiding Method Indwelling Catheter Indwelling Catheter - Exam General appearance: cooperative, disheveled, no distress - EENT Eyes: EOMI, PERRLA ENT: hard of hearing, normal oropharynx, edentulous Ears: bilateral: normal - Neck Neck: normal ROM Carotids: bilateral: upstroke normal - Respiratory Respiratory: bilateral: diminished, dullness, rales, rhonchi, wheezing, prolonged expiration - Cardiovascular Distant heart sounds Rhythm: regular Heart sounds: normal: S1, S2 - Gastrointestinal General gastrointestinal: no distended, no hepatomegaly, normal bowel sounds, no organomegaly, soft, no splenomegaly, no tenderness, Berry in place with clear reshma return - Neurologic Neurologic: CNII-XII intact - Musculoskeletal Musculoskeletal: generalized weakness, strength equal bilaterally - Psychiatric Mildly confused, oriented to person, cooperative - Labs CBC & Chem 7: 06/26/18 04:53 06/26/18 04:53 Labs: Abnormal Lab Results - Last 24 Hours (Table) 06/25/18 06/25/18 06/25/18 Range/Units 11:29 11:52 12:54 RBC (4.30-5.90) m/uL Hgb (13.0-17.5) gm/dL Hct (39.0-53.0) % MCV (80.0-100.0) fL Lymphocytes # (1.0-4.8) k/uL APTT (22.0-30.0) sec ABG pCO2 50 H (35-45) mmHg ABG pO2 77 L (83-108) mmHg ABG HCO3 32 H (21-25) mmol/L ABG Total CO2 33 H (19-24) mmol/L Carbon Dioxide (22-30) mmol/L BUN (9-20) mg/dL Glucose (74-99) mg/dL POC Glucose (mg/dL) 178 H 177 H (75-99) mg/dL Total Protein (6.3-8.2) g/dL Albumin (3.5-5.0) g/dL 06/25/18 06/25/18 06/25/18 Range/Units 16:05 16:27 20:58 RBC (4.30-5.90) m/uL Hgb (13.0-17.5) gm/dL Hct (39.0-53.0) % MCV (80.0-100.0) fL Lymphocytes # (1.0-4.8) k/uL APTT 48.4 H (22.0-30.0) sec ABG pCO2 (35-45) mmHg ABG pO2 (83-108) mmHg ABG HCO3 (21-25) mmol/L ABG Total CO2 (19-24) mmol/L Carbon Dioxide (22-30) mmol/L BUN (9-20) mg/dL Glucose (74-99) mg/dL POC Glucose (mg/dL) 161 H 169 H (75-99) mg/dL Total Protein (6.3-8.2) g/dL Albumin (3.5-5.0) g/dL 06/26/18 06/26/18 06/26/18 Range/Units 04:53 04:53 04:53 RBC 2.75 L (4.30-5.90) m/uL Hgb 9.1 L (13.0-17.5) gm/dL Hct 28.7 L (39.0-53.0) % MCV 104.6 H (80.0-100.0) fL Lymphocytes # 0.1 L (1.0-4.8) k/uL APTT 79.7 H (22.0-30.0) sec ABG pCO2 (35-45) mmHg ABG pO2 (83-108) mmHg ABG HCO3 (21-25) mmol/L ABG Total CO2 (19-24) mmol/L Carbon Dioxide 33 H (22-30) mmol/L BUN 65 H (9-20) mg/dL Glucose 136 H (74-99) mg/dL POC Glucose (mg/dL) (75-99) mg/dL Total Protein 4.8 L (6.3-8.2) g/dL Albumin 2.6 L (3.5-5.0) g/dL 06/26/18 06/26/18 Range/Units 06:54 07:36 RBC (4.30-5.90) m/uL Hgb (13.0-17.5) gm/dL Hct (39.0-53.0) % MCV (80.0-100.0) fL Lymphocytes # (1.0-4.8) k/uL APTT (22.0-30.0) sec ABG pCO2 (35-45) mmHg ABG pO2 (83-108) mmHg ABG HCO3 (21-25) mmol/L ABG Total CO2 (19-24) mmol/L Carbon Dioxide (22-30) mmol/L BUN (9-20) mg/dL Glucose (74-99) mg/dL POC Glucose (mg/dL) 163 H 151 H (75-99) mg/dL Total Protein (6.3-8.2) g/dL Albumin (3.5-5.0) g/dL Microbiology - Last 24 Hours (Table) 06/24/18 07:31 Blood Culture - Preliminary Blood No Growth after 48 hours 06/24/18 07:31 Blood Culture - Preliminary Blood No Growth after 48 hours 06/25/18 17:12 Gram Stain - Preliminary Sputum Sputum Culture - Preliminary 06/24/18 18:50 Urine Culture - Final Urine,Catheterized Assessment and Plan Plan: 1. Acute hypercapnic hypoxic respiratory failure on chronic respiratory failure secondary to COPD and bilateral pneumonia. Continue nebulizers Q4 hours with Pulmicort BID, Solumedol 40mg IV Q12. Continue Zosyn, Vancomycin, and Levofloxacin. Patient is currently on nasal cannula. Consults with pulmonary medicine, infectious disease appreciated 2. Septic shock secondary to bilaterial pneumonia. Infectious disease consulted , continue Zosyn, Vancomycin, and Levofloxacin. Blood and sputum cultures ordered. Off Norepinephrine. 3. Acute COPD exacerbation. Continue antibiotics, nebulizers, pulmicort, solumedrol and continue with supplemental oxygen 4. A.Fib with RVR with paroxysmal atrial fibrillation currently in sinus rhythm. Amiodarone drip changed to oral and decreased to 200 mg twice daily. Patient on eliquis 2.5 mg twice daily. Heparin drip was discontinued. Cardiology consult appreciated. 5. Cachexia with severe protein calorie malnutrition with BMI of 19. Ensure oral supplement ordered. 6. Hypertension. Currently hypotensive, zestril and metoprolol held 7. Hyperlipidemia. May continue on Atorvastatin 40mg daily 8. DVT prophylaxis. Eliquis 9. GI prophylaxis. Protonix 40mg daily Discharge plan: Return to [facility] Impression and plan of care have been directed as dictated by the signing physician. Roxanna Gan nurse practitioner acting as scribe for signing physician.
--- NOTE | 2018-06-26 15:48 | P.PN ---
Subjective Progress Note Date: 06/26/18 Principal diagnosis: Bilateral pneumonia, acute hypoxic respiratory failure, atrial fibrillation with rapid ventricular response, generalized weakness and medical debility, severe sepsis and septic shock related to bilateral pneumonia 06/26/2018, patient seen eval examined during the rounds clinically patient has been doing well he is more awake and alert sitting upright in the bed he is on supplemental oxygen breathing comfortably, he is a slightly bradycardic heart rate ranges from mid 50s to mid 60s blood pressure has been stable, FiO2 slowly being titrated down to 4 L from 5 L home of his urine and sputum and blood culture so far has been negative, chest x-ray performed today reviewed and compared with the prior x-ray stable infiltrate around with baseline COPD a trace effusion cannot be excluded, patient is currently monitoring in ICU for placement in a medical bed on telemetry 06/25/2018, patient seen eval reexamined during the rounds today he remains on supplemental oxygen LK more awake and alert is breathing more comfortably, he remains on supplemental oxygen with 5 L his mental status is improved he is status post echocardiogram results and reports are reviewed patient has a fairly well ejection fraction of 50% however some component of pulmonary hypertension as noted likely multifactorial patient is now off of vasopressors he is tolerating by mouth relatively well he is being changed from IV amiodarone to oral cardiovascular services following blood gases not performed today we'll do a blood gas prior to transfer out of the ICU, labs reviewed medications reviewed radiographic studies reviewed as well critical care time spent 35 minutes 83-year-old male who is a resident of extended care facility admitted a large has baseline problems associated with chronic hypoxic respiratory failure end- stage lung disease and severe COPD emphysema patient was noted to be more short of breath and has a confusion and altered mental status and was eventually transferred to [facility] emergency department where he was seen eval reexamined subsequently transferred to the emergency department at [facility] on arrival he was hypotensive treated require crystalloid challenge followed by a vasopressors a central line has been placed by the emergency room physician patient is being placed on the 10 mics of levo fed his blood pressure is now 90/ 60 patient's saturation is 98% on 6 L oxygen, he is awake but the does not give any detailed history he has obvious short leg shortness of breath I reviewed his arterial blood gas performed stat basis he has component of hypercapnia and respiratory acidosis, his chest x-ray revealed COPD-like process of bilateral consolidation along with pleural effusion, pleural effusion appears to be small consolidation is mostly on the basal area central line in his left internal jugular, patient had an episode of A. fib with rapid ventricular response however responded with Cardizem drip and is back to sinus rhythm Objective - Vital Signs Vital signs: Vital Signs Temp 97.8 F 06/26/18 04:00 Pulse 64 06/26/18 12:52 Resp 23 06/26/18 04:00 BP 117/65 06/26/18 04:00 Pulse Ox 97 06/26/18 04:00 Intake & Output 06/25/18 06/26/18 06/26/18 18:59 06:59 18:59 Intake Total 2073.097 3848.388 Output Total 650 475 Balance 656.754 733.388 Weight 62.8 kg 62.8 kg Intake: IV 236.7 180 Amiodarone 450 mg In 16.7 Dextrose 5% in Water 250 ml @ 1 MG/MIN 33.33 mls/ hr IV .Q7H31M [facility] Rx#: [id number] Sodium Chloride 0.9% 1, 220 180 000 ml @ 20 mls/hr IV . Q24H [facility] Rx#:[id number] Intake, IV Titration 290.054 278.388 Amount Heparin Sod,Pork in 0.45% 235.054 278.388 NaCl 25,000 unit In 0.45 % NaCl 1 500ml.bag @ 12 UNITS/KG/HR 11.8 mls/hr IV .Q24H [facility] Rx#: [id number] Sodium Chloride 0.9% 1, 55 000 ml @ 20 mls/hr IV . Q24H [facility] Rx#:[id number] Oral 780 750 Output: Urine 650 475 Other: Voiding Method Indwelling Catheter Indwelling Catheter - Exam - Constitutional General appearance: cooperative, disheveled, mild distress more awake and alert - EENT Eyes: EOMI, PERRLA, poor dentition, normal appearance ENT: hard of hearing, normal oropharynx Ears: bilateral: normal - Neck Neck: normal ROM Carotids: bilateral: upstroke normal Thyroid: bilateral: normal size - Respiratory Respiratory: bilateral: diminished, dullness (Bilateral basis less than one fourth of the lung), rales (Crackles at the bases), rhonchi (Expiratory), wheezing (Bilateral expiratory), prolonged expiration, negative: prolonged inspiration, other, overall improved exam compared to yesterday - Cardiovascular Rhythm: regular Heart sounds: normal: S1, S2 - Gastrointestinal General gastrointestinal: soft - Neurologic Neurologic: CNII-XII intact - Musculoskeletal Musculoskeletal: generalized weakness, strength equal bilaterally - Psychiatric Psychiatric: A&O x's 3 Very slow to respon - Labs CBC & Chem 7: 06/26/18 04:53 06/26/18 04:53 Labs: Abnormal Lab Results - Last 24 Hours (Table) 06/25/18 06/25/18 06/25/18 Range/Units 16:05 16:27 20:58 RBC (4.30-5.90) m/uL Hgb (13.0-17.5) gm/dL Hct (39.0-53.0) % MCV (80.0-100.0) fL Lymphocytes # (1.0-4.8) k/uL APTT 48.4 H (22.0-30.0) sec Carbon Dioxide (22-30) mmol/L BUN (9-20) mg/dL Glucose (74-99) mg/dL POC Glucose (mg/dL) 161 H 169 H (75-99) mg/dL Total Protein (6.3-8.2) g/dL Albumin (3.5-5.0) g/dL 06/26/18 06/26/18 06/26/18 Range/Units 04:53 04:53 04:53 RBC 2.75 L (4.30-5.90) m/uL Hgb 9.1 L (13.0-17.5) gm/dL Hct 28.7 L (39.0-53.0) % MCV 104.6 H (80.0-100.0) fL Lymphocytes # 0.1 L (1.0-4.8) k/uL APTT 79.7 H (22.0-30.0) sec Carbon Dioxide 33 H (22-30) mmol/L BUN 65 H (9-20) mg/dL Glucose 136 H (74-99) mg/dL POC Glucose (mg/dL) (75-99) mg/dL Total Protein 4.8 L (6.3-8.2) g/dL Albumin 2.6 L (3.5-5.0) g/dL 06/26/18 06/26/18 06/26/18 Range/Units 06:54 07:36 11:48 RBC (4.30-5.90) m/uL Hgb (13.0-17.5) gm/dL Hct (39.0-53.0) % MCV (80.0-100.0) fL Lymphocytes # (1.0-4.8) k/uL APTT (22.0-30.0) sec Carbon Dioxide (22-30) mmol/L BUN (9-20) mg/dL Glucose (74-99) mg/dL POC Glucose (mg/dL) 163 H 151 H 143 H (75-99) mg/dL Total Protein (6.3-8.2) g/dL Albumin (3.5-5.0) g/dL Microbiology - Last 24 Hours (Table) 06/24/18 07:31 Blood Culture - Preliminary Blood No Growth after 48 hours 06/24/18 07:31 Blood Culture - Preliminary Blood No Growth after 48 hours 06/25/18 17:12 Gram Stain - Preliminary Sputum Sputum Culture - Preliminary 06/24/18 18:50 Urine Culture - Final Urine,Catheterized Assessment and Plan Assessment: Bilateral pneumonia A. fib with rapid ventricular response likely related to above Severe sepsis associated with bilateral pneumonia and septic shock clinically and radiographically continued to improve Acute hypoxic and hypercapnic respiratory failure, Acute COPD exacerbation, Coronary artery disease Pulmonary hypertension likely related to cor pulmonale Altered mental status multifactorial process Hypercapnic hypoxic respiratory failure acute on chronic Advanced dementia and Alzheimer's disease Plan: Aggressive rehydration Vasopressors, monitor off of them Broad spectrum antibiotics Breathing treatments IV steroids, in next 24 hours can be switched to oral with intent to taper and DC DVT and peptic ulcer disease prophylaxis Repeat labs x-rays tomorrow, can be moved out of the ICU to stepdown unit he the selective oral medical surgical unit with a remote telemetry Further recommendations pending plan of care as per clinical response of the patient Time with Patient: Greater than 30
[2018-06-26 17:45] LABS: Glucose,Whole Blood 127 mg/dL (75-99)
[2018-06-26 20:37] LABS: Glucose,Whole Blood 138 mg/dL (75-99)
[2018-06-26] MEDS ORDERED: APIXABAN 2.5 MG TABLET PO SCH (21:00)
--- NOTE | 2018-06-26 23:51 | PN ---
PROGRESS NOTE DATE OF SERVICE: 06/26/2018. REASON FOR FOLLOWUP: Pneumonia. INTERVAL HISTORY: The patient is currently afebrile and seems to be breathing slightly comfortably. The patient denies significant chest pain. He did have some cough but not bringing up any sputum. No abdominal pain or any diarrhea. EXAMINATION: Blood pressure is 136/74 with a pulse of 68. Temperature 97.6. He is 95% on 4 L nasal cannula. General description is an elderly male lying in bed in no distress. Respiratory system unlabored breathing with decreased breath sounds. No wheeze. Heart S1, S2. Regular rate and rhythm. Abdomen soft. No tenderness. Extremities: No edema of the feet. LABS: Hemoglobin 9.1, white count 6.9, BUN of 55, creatinine is 1.16. Blood culture has been negative so far. Sputum cultures currently pending. DIAGNOSTIC IMPRESSION AND PLAN: Patient admitted to the hospital with which is likely multifactorial with concern for possible pneumonia, possible resistant gram positive, gram negative so far culture has been pending. We will keep the patient on Zosyn and vanco for now while waiting for the culture to finalize to narrow down his antibiotics. Continue supportive care. MMODL / IJN: [id number] /
[2018-06-27] MEDS: PIPERACILLIN-TAZOBACTAM 3.375 GM in DEXTROSE/WATER 1 50ML.BAG IVPB SCH ×3 (04:32→23:20)
[2018-06-27 05:07] LABS: Basophils % (A) 0 %; Eosinophils % (A) 0 %; HCT 29.8 % (39.0-53.0); HGB 9.4 gm/dL (13.0-17.5); Hypochromasia Slight; Lymphocytes # (A) 0.1 k/uL (1.0-4.8); Lymphocytes % (A) 2 %; MCHC 31.5 g/dL (31.0-37.0); MCV 104.7 fL (80.0-100.0); Macrocytosis Slight; Mean Platelet Volume 7.2; Monocytes # (A) 0.3 k/uL (0-1.0); Monocytes % (A) 4 %; Neutrophils # (A) 7.6 k/uL (1.3-7.7); Neutrophils % (A) 94 %; Platelet Count 182 k/uL (150-450); RBC 2.85 m/uL (4.30-5.90); RDW 12.2 % (11.5-15.5); WBC 8.1 k/uL (3.8-10.6)
[2018-06-27 05:19] LABS: Albumin 2.8 g/dL (3.5-5.0); Calcium 9.8 mg/dL (8.4-10.2); Potassium 4.6 mmol/L (3.5-5.1); Total Bilirubin 0.4 mg/dL (0.2-1.3)
[2018-06-27 07:35] LABS: Glucose,Whole Blood 129 mg/dL (75-99)
--- NOTE | 2018-06-27 07:50 | P.PN ---
Subjective Progress Note Date: 06/27/18 Principal diagnosis: Paroxysmal atrial fibrillation The patient is an 83-year-old gentleman who was transferred from [facility] to [facility] after he was diagnosed with bilateral pneumonia at [facility]. Currently the patient is on BiPAP and he is confused and poor historian and the history was taken mainly from the chart as well as from the nurse taking care of the patient. The patient does have an extensive past medical history consistent off advanced chronic obstructive pulmonary disease as well as chronic respiratory failure and he resides at an extended care facility. Beside that he does have underlying dementia, coronary artery disease, hypertension, and dyslipidemia. I'll follow-up with the patient today, June [id number], he is doing better. He remained in normal sinus mechanism. The heart rate is a slightly better after I did decrease the dose of amiodarone. The oral anticoagulation was stopped yesterday because the patient is at high risk of falling and bleeding which I would agree with. Objective - Vital Signs Vital signs: Vital Signs Temp 98.0 F 06/27/18 00:00 Pulse 75 06/27/18 06:00 Resp 21 06/27/18 06:00 BP 133/64 06/27/18 06:00 Pulse Ox 91 L 06/27/18 06:00 Intake & Output 06/26/18 06/27/18 06/27/18 18:59 06:59 18:59 Intake Total 1130 980 Output Total 770 1185 Balance 360 -205 Weight 62.8 kg 60.9 kg Intake: IV 180 230 Piperacillin-Tazobactam 3 50 .375 gm In Dextrose/Water 1 50ml.bag @ 12.5 mls/hr IVPB Q8HR [facility] Rx#: [id number] Sodium Chloride 0.9% 1, 180 180 000 ml @ 20 mls/hr IV . Q24H [facility] Rx#:[id number] Intake, IV Titration 50 Amount Levofloxacin 750Mg-D5w 50 Pmx 750 mg In Dextrose/ Water 1 150ml.bag @ 100 mls/hr IVPB Q48H [facility] Rx#: [id number] Oral 900 750 Output: Urine 770 1185 Other: Voiding Method Indwelling Catheter Indwelling Catheter - Constitutional General appearance: Present: no acute distress - Respiratory Respiratory: bilateral: CTA - Cardiovascular Rhythm: regular Heart sounds: normal: S1, S2 - Labs CBC & Chem 7: 06/27/18 04:38 06/27/18 04:38 Labs: Abnormal Lab Results - Last 24 Hours (Table) 06/26/18 06/26/18 06/26/18 Range/Units 11:48 17:34 20:26 RBC (4.30-5.90) m/uL Hgb (13.0-17.5) gm/dL Hct (39.0-53.0) % MCV (80.0-100.0) fL Lymphocytes # (1.0-4.8) k/uL Carbon Dioxide (22-30) mmol/L BUN (9-20) mg/dL Glucose (74-99) mg/dL POC Glucose (mg/dL) 143 H 127 H 138 H (75-99) mg/dL Total Protein (6.3-8.2) g/dL Albumin (3.5-5.0) g/dL 06/27/18 06/27/18 06/27/18 Range/Units 04:38 04:38 07:23 RBC 2.85 L (4.30-5.90) m/uL Hgb 9.4 L (13.0-17.5) gm/dL Hct 29.8 L (39.0-53.0) % MCV 104.7 H (80.0-100.0) fL Lymphocytes # 0.1 L (1.0-4.8) k/uL Carbon Dioxide 32 H (22-30) mmol/L BUN 59 H (9-20) mg/dL Glucose 149 H (74-99) mg/dL POC Glucose (mg/dL) 129 H (75-99) mg/dL Total Protein 5.0 L (6.3-8.2) g/dL Albumin 2.8 L (3.5-5.0) g/dL Microbiology - Last 24 Hours (Table) 06/24/18 07:31 Blood Culture - Preliminary Blood No Growth after 48 hours 06/24/18 07:31 Blood Culture - Preliminary Blood No Growth after 48 hours 06/25/18 17:12 Gram Stain - Preliminary Sputum Sputum Culture - Preliminary Assessment and Plan Assessment: Assessment #1 acute hypoxic respiratory failure #2 COPD exacerbation #3 bilateral pneumonia #4 known advanced COPD #5 known chronic respiratory failure #6 paroxysmal atrial fibrillation #7 coronary artery disease "by history" #8 hypertension #9 dyslipidemia #10 underlying dementia Plan #1 continue the current medical regimen #2 I agree about stopping the oral anticoagulation #3 the echo was reviewed and revealed normal LV function #5 follow-up with the patient Thank you for allowing us participate in his care and we'll continue following up with the patient
[2018-06-27] MEDS: BUDESONIDE 0.5 MG/2 ML NEBU INHALATION SCH ×2 (07:57→19:56)
[2018-06-27] MEDS: IPRATROPIUM-ALBUTEROL 3 ML NEB INHALATION SCH ×4 (07:57→19:56)
--- NOTE | 2018-06-27 08:13 | P.CONS ---
History of Present Illness - Chief Complaint Medical debility - History of Present Illness I had the opportunity to see patient for inpatient review consultation with regard to medical debility. He is known to me from recent hospitalization at [facility] a few weeks ago. Admitted June 24 to [facility] from ECF with acute on chronic hypoxic respiratory failure. Chest x-ray followed for CHF. PT started. Nurse reports patient able to sit edge of bed only. OT prescribed. Seen in consultation by cardiology and Dr. Carver. Review of Systems Review of systems: Thin wasted appearance. ENT: Denies sneezes or discharge. Eyes: Denies discharge or photophobia. Cardiac: Denies chest pain or palpitation. Pulmonary: At least moderate shortness of breath. Gastrointestinal: Denies nausea, emesis, constipation, diarrhea. Genitourinary: Denies discharge or frequency. Musculoskeletal: Denies muscle or bone aches. Neurologic: Generalized weakness. Endocrine: Denies shakes or sweats. Oncology: Denies cancers. Dermatologic: Denies rash, itching, pruritus. ALLERGY/immunology: Denies sneezes, rashes. Past Medical History Past Medical History: Asthma, Coronary Artery Disease (CAD), Heart Failure, COPD , CVA/TIA, Hyperlipidemia, Hypertension, Prostate Disorder, Renal Disease, Skin Disorder Additional Past Medical History / Comment(s): Daughter, Mandi, states pt recently admitted to [facility] with abdominal distention/ascities/hematuria and had peck catheter placed. Other Hx: Asthma, bronchitis, pulmonary fibrosis, sinus problems, O2 3l/nc, AAA low aorta, PMH documents CVA but ankita is unsure if he ever had one, recent shaking-was to have neuro work up, BPH, CKD stage IV, psoriasis, protein calorie malnutrition, hyponatremia. History of Any Multi-Drug Resistant Organisms: None Reported Past Surgical History: Ear Surgery, Heart Catheterization With Stent Additional Past Surgical History / Comment(s): 2010 PCI with stent to cx, bilateral cataract removals, L eye surgery for detached retina, L ear surgery for meniere's disease, colonoscopy, L knee arthroscopy. Additional Past Anesthesia/Blood Transfusion Reaction / Comm: PMH documents respiratory difficulty post operatively Date of Last Stent Placement:: 2010 Smoking Status: Former smoker Past Alcohol Use History: Occasional Additional Past Alcohol Use History / Comment(s): states drinks Vodka at times - Past Family History Mother Family Medical History: Osteoarthritis (OA) Additional Family Medical History / Comment(s): at 86 from CVA Father Family Medical History: No Reported History Additional Family Medical History / Comment(s): Father young in a construction accident. Medications and Allergies Home Medications Medication Instructions Recorded Confirmed Type ALPRAZolam [Xanax] 0.25 mg PO TID PRN 06/24/18 06/24/18 History Acetaminophen with Codeine 1 tab PO Q4H PRN 06/24/18 06/24/18 History [Tylenol w/codeine #3] Ammonium Lactate Lotion 1 applic TOPICAL HS 06/24/18 06/24/18 History [Lac-Hydrin 12% Lotion] Atorvastatin [Lipitor] 40 mg PO HS 06/24/18 06/24/18 History Budesonide [Pulmicort] 0.5 mg INHALATION RT-DAILY 06/24/18 06/24/18 History Citalopram Hydrobromide [CeleXA] 20 mg PO DAILY 06/24/18 06/24/18 History Clopidogrel [Plavix] 75 mg PO HS 06/24/18 06/24/18 History Famotidine [Pepcid] 20 mg PO DAILY 06/24/18 06/24/18 History Finasteride [Proscar] 5 mg PO DAILY 06/24/18 06/24/18 History Furosemide [Lasix] 40 mg PO BID@0600,1200 06/24/18 06/24/18 History Ipratropium-Albuterol Nebulize 3 ml INHALATION RT-QID 06/24/18 06/24/18 History [Duoneb 0.5 mg-3 mg/3 ml Soln] Lactulose 20 gm PO BID@0800,2000 06/24/18 06/24/18 History Lisinopril [Zestril] 2.5 mg PO DAILY 06/24/18 06/24/18 History Metoprolol Succinate [Toprol XL] 25 mg PO DAILY 06/24/18 06/24/18 History Mirtazapine [Remeron] 15 mg PO HS 06/24/18 06/24/18 History Montelukast [Singulair] 10 mg PO HS 06/24/18 06/24/18 History Spironolactone [Aldactone] 25 mg PO DAILY 06/24/18 06/24/18 History Tamsulosin [Flomax] 0.4 mg PO DAILY 06/24/18 06/24/18 History Allergies Allergy/AdvReac Type Severity Reaction Status Date / Time No Known Allergies Allergy Verified 06/24/18 08:46 Physical Exam Vitals: Vital Signs Temp Pulse Resp BP Pulse Ox 06/27/18 08:01 65 94 L 06/27/18 06:00 75 21 133/64 91 L 06/27/18 04:00 67 21 116/80 93 L 06/27/18 02:00 71 21 128/101 92 L 06/27/18 00:04 64 18 128/101 93 L 06/27/18 00:00 98.0 F 64 21 132/77 93 L 06/26/18 22:00 66 22 136/74 95 06/26/18 20:44 68 06/26/18 20:28 64 06/26/18 20:00 97.6 F 68 24 136/74 95 06/26/18 18:00 72 17 92 L 06/26/18 17:06 73 06/26/18 16:58 65 06/26/18 16:00 98.5 F 62 22 106/81 96 06/26/18 14:00 63 36 H 106/59 89 L 06/26/18 12:52 64 06/26/18 12:44 64 06/26/18 12:00 98.4 F 61 24 133/81 97 06/26/18 10:00 64 27 H 127/87 94 L 06/26/18 09:48 58 L 06/26/18 09:25 58 L Intake and Output 06/26/18 06/27/18 06/27/18 22:59 06:59 14:59 Intake Total 410 900 Output Total 575 885 Balance -165 15 Intake: IV 160 150 Piperacillin-Tazobactam 3 50 .375 gm In Dextrose/Water 1 50ml.bag @ 12.5 mls/hr IVPB Q8HR [facility] Rx#: [id number] Sodium Chloride 0.9% 1, 160 100 000 ml @ 20 mls/hr IV . Q24H [facility] Rx#:[id number] Intake, IV Titration 50 Amount Levofloxacin 750Mg-D5w 50 Pmx 750 mg In Dextrose/ Water 1 150ml.bag @ 100 mls/hr IVPB Q48H REPLACED BY [facility] Rx#: [id number] Oral 200 750 Output: Urine 575 885 Other: Voiding Method Indwelling Catheter Indwelling Catheter Weight 60.9 kg Skin: Good color, texture, turgor. General: Thin waisted build and comfortable appearance. Head: Normocephalic, atraumatic. Eyes: Symmetric. Pupils equal round. Ears: Symmetric. Hearing within normal limits. Mouth: Clear. Neck: Supple. Carotid without bruit. Cardiac: Regular rate and rhythm. Lungs: Shortness of breath, wearing oxygen. Abdomen: Soft active nontender. Extremities: Normal tone. Neurological: Mental status: Alert, cooperative, pleasant. Cranial nerves: Symmetric facial tone and trapezius. Motor: Can actively elevate all 4 limbs. Sensation: Intact throughout. DTRs: Symmetric and equal throughout. Mobility: Requires 2 nurse assist to sit edge of bed. Results CBC & Chem 7: 06/27/18 04:38 06/27/18 04:38 Labs: Abnormal Lab Results - Last 24 Hours (Table) 06/26/18 06/26/18 06/26/18 Range/Units 11:48 17:34 20:26 RBC (4.30-5.90) m/uL Hgb (13.0-17.5) gm/dL Hct (39.0-53.0) % MCV (80.0-100.0) fL Lymphocytes # (1.0-4.8) k/uL Carbon Dioxide (22-30) mmol/L BUN (9-20) mg/dL Glucose (74-99) mg/dL POC Glucose (mg/dL) 143 H 127 H 138 H (75-99) mg/dL Total Protein (6.3-8.2) g/dL Albumin (3.5-5.0) g/dL 06/27/18 06/27/18 06/27/18 Range/Units 04:38 04:38 07:23 RBC 2.85 L (4.30-5.90) m/uL Hgb 9.4 L (13.0-17.5) gm/dL Hct 29.8 L (39.0-53.0) % MCV 104.7 H (80.0-100.0) fL Lymphocytes # 0.1 L (1.0-4.8) k/uL Carbon Dioxide 32 H (22-30) mmol/L BUN 59 H (9-20) mg/dL Glucose 149 H (74-99) mg/dL POC Glucose (mg/dL) 129 H (75-99) mg/dL Total Protein 5.0 L (6.3-8.2) g/dL Albumin 2.8 L (3.5-5.0) g/dL Microbiology - Last 24 Hours (Table) 06/24/18 07:31 Blood Culture - Preliminary Blood No Growth after 48 hours 06/24/18 07:31 Blood Culture - Preliminary Blood No Growth after 48 hours 06/25/18 17:12 Gram Stain - Preliminary Sputum Sputum Culture - Preliminary Assessment and Plan (1) Pneumonia Current Visit: Yes Status: Acute Code(s): J18.9 - PNEUMONIA, UNSPECIFIED ORGANISM SNOMED Code(s): 576418884 Plan: Impression: 1. Medical debility. 2. Pneumonia. 3. Acute on chronic hypoxic respiratory failure. Comments and plan: At this time PT ongoing and OT prescribed. Follow therapies with yourself. Rehab prognosis guarded in anticipate return to [facility].
--- NOTE | 2018-06-27 08:17 | XR ---
EXAMINATION TYPE: XR chest 1V portable DATE OF EXAM: 06/27/2018 COMPARISON: Prior chest x-ray 06/26/2018 HISTORY: Pneumonia TECHNIQUE: frontal view of the chest is obtained on two images. FINDINGS: Suspect some improved aeration at the lung bases. There is underlying emphysematous change . Interval placement of a left-sided PICC line and removal of the left jugular central venous cathete r. No evident pneumothorax. Heart is stable accounting for differences in technique. IMPRESSION: Improvement in aeration
[2018-06-27] MEDS ORDERED: VANCOMYCIN TROUGH DUE 1 EACH MISC MISCELLANE ONE (09:00)
[2018-06-27] MEDS: methylPREDNISolone SOD SUCCI 40 MG/ML 1 ML VIAL IV SCH (09:41)
[2018-06-27] MEDS: PANTOPRAZOLE 40 MG TABLET PO SCH (09:41)
[2018-06-27] MEDS: AMIODARONE 200 MG TAB PO SCH ×2 (09:41→21:59)
[2018-06-27] MEDS: VANCOMYCIN 1,000 MG in SODIUM CHLORIDE 0.9% 250 ML IVPB SCH (09:50)
[2018-06-27] MEDS: INSULIN ASPART 100 UNIT/ML 1 ML 10 ML VIAL SQ SCH ×4 (09:56→21:56)
--- NOTE | 2018-06-27 10:39 | P.PN ---
Subjective Progress Note Date: 06/27/18 History of present illness: This is an 83-year-old patient well-known to our services, being seen examined and evaluated for pulmonary consultation. This patient was recently admitted at [facility] from 06/13/2018 to 06/19/2018. During that admission he was being treated for CHF, COPD, ascites, hyponatremia as well as chronic kidney disease stage III, he was discharged to [facility] after his hospitalization. He was sent to [facility] for respiratory distress. The patient came in to the emergency room from [facility] for transfer for respiratory distress and bilateral pneumonia. The patient was worked up in the ER and is very hard of hearing as well as a poor historian. While being worked up in the ER for his admission the patient did go into A. fib with RVR and did have some hypotension. He was given 1 L of fluid bolus in the ER, he ultimately required a central line placement as well as vasopressors. Consult was placed for Dr. Carver for ICU management. His chest x-ray did reveal COPD as well as bilateral consolidation along with pleural effusions. ABGs did reveal a pH of 7.3 to, pCO2 58, pO2 of 68, HCO3 of 30, he did have a component of hypercapnia, hypoxia and respiratory acidosis. Lactic acid was 1. Upon examination the patient is lethargic continues on supplemental oxygen. Blood pressures are being maintained with vasopressors. He is very hard of hearing. Interval history: 06/25/2018patient is being seen examined and evaluated today on rounds. He is resting up in bed on 5 L of supplemental oxygen via nasal cannula, he is much more alert and awake today. His chest x-ray was reviewed and does show improved aeration. He did have an echocardiogram which revealed an EF of 50-55 % and RVSP of 44.92. He currently is off of vasopressors. His Levophed was turned off at approximately 4 PM yesterday. He has been having good urine output. Cardiology has switched him from IV amiodarone 2 oral amiodarone. He continues on heparin. Currently hemodynamically stable. Afebrile, no further complaints. 06/26/18- Please see note by Christy Fry NP 06/27/18- patient is being seen examined and evaluated today on rounds. He is resting up in bed on 4 L of supplemental oxygen via nasal cannula. He continues to have some intermittent confusion. He did have a chest x-ray from this morning which was reviewed and did show improvement in aeration. He has been hemodynamically stable, being downgraded to medical surgical unit with telemetry. Sputum culture is currently pending. He is having good urine output. Physical medicine was consulted for possible inpatient rehab. All labs and reports have been reviewed. He is afebrile no further complaints. Case is discussed with patient's direct care nurse. Objective - Vital Signs Vital signs: Vital Signs Temp 98.0 F 06/27/18 00:00 Pulse 68 06/27/18 08:14 Resp 21 06/27/18 06:00 BP 133/64 06/27/18 06:00 Pulse Ox 94 L 06/27/18 08:01 Intake & Output 06/26/18 06/27/18 06/27/18 18:59 06:59 18:59 Intake Total 1130 980 Output Total 770 1185 Balance 360 -205 Weight 62.8 kg 60.9 kg Intake: IV 180 230 Piperacillin-Tazobactam 3 50 .375 gm In Dextrose/Water 1 50ml.bag @ 12.5 mls/hr IVPB Q8HR [facility]A Rx#: [id number] Sodium Chloride 0.9% 1, 180 180 000 ml @ 20 mls/hr IV . Q24H R[facility]IKA Rx#:[id number] Intake, IV Titration 50 Amount Levofloxacin 750Mg-D5w 50 Pmx 750 mg In Dextrose/ Water 1 150ml.bag @ 100 mls/hr IVPB Q48H R[facility]IKA Rx#: [id number] Oral 900 750 Output: Urine 770 1185 Other: Voiding Method Indwelling Catheter Indwelling Catheter - Exam GENERAL EXAM: Alert, more awake today, intermittent confusion noted, hard of hearing, comfortable in no apparent distress. HEAD: Normocephalic. EYES: Normal reaction of pupils, equal size. NOSE: Clear with pink turbinates. THROAT: No erythema or exudates. NECK: No masses, no JVD. CHEST: No chest wall deformity. LUNGS: Lungs noted to be diminished with rhonchi as well as a faint expiratory wheeze CVS: S1 and S2 normal with no audible mumurs, regular rhythm. ABDOMEN: No hepatosplenomegaly, normal bowel sounds, no guarding or rigidity. EXTREMITIES: No edema noted, pedal pulses palpable. CENTRAL NERVOUS SYSTEM: No focal deficits, tone is normal in all 4 extremities. - Labs CBC & Chem 7: 06/27/18 04:38 06/27/18 04:38 Labs: Abnormal Lab Results - Last 24 Hours (Table) 06/26/18 06/26/18 06/26/18 Range/Units 11:48 17:34 20:26 RBC (4.30-5.90) m/uL Hgb (13.0-17.5) gm/dL Hct (39.0-53.0) % MCV (80.0-100.0) fL Lymphocytes # (1.0-4.8) k/uL Carbon Dioxide (22-30) mmol/L BUN (9-20) mg/dL Glucose (74-99) mg/dL POC Glucose (mg/dL) 143 H 127 H 138 H (75-99) mg/dL Total Protein (6.3-8.2) g/dL Albumin (3.5-5.0) g/dL 06/27/18 06/27/18 06/27/18 Range/Units 04:38 04:38 07:23 RBC 2.85 L (4.30-5.90) m/uL Hgb 9.4 L (13.0-17.5) gm/dL Hct 29.8 L (39.0-53.0) % MCV 104.7 H (80.0-100.0) fL Lymphocytes # 0.1 L (1.0-4.8) k/uL Carbon Dioxide 32 H (22-30) mmol/L BUN 59 H (9-20) mg/dL Glucose 149 H (74-99) mg/dL POC Glucose (mg/dL) 129 H (75-99) mg/dL Total Protein 5.0 L (6.3-8.2) g/dL Albumin 2.8 L (3.5-5.0) g/dL Microbiology - Last 24 Hours (Table) 06/24/18 07:31 Blood Culture - Preliminary Blood No Growth after 72 hours 06/24/18 07:31 Blood Culture - Preliminary Blood No Growth after 72 hours 06/25/18 17:12 Gram Stain - Preliminary Sputum Sputum Culture - Preliminary Assessment and Plan Assessment: Assessment Severe sepsis with sepsis shock Acute hypercapnic respiratory failure Acute on chronic hypoxic respiratory failure Acute exacerbation of COPD Bilateral pneumonia History of CAD Dementia A. fib with RVR History of hypertension Hyperlipidemia Component of pulmonary hypertension per echocardiogram Plan Patient is being downgraded from the intensive care unit to the medical surgical unit with telemetry Medications have been reviewed and will be continued as ordered. Patient is not a candidate for oral anticoagulation due to the patient's fall risk. Cardiology does agree Initiated oral ASA Antibiotics per ID Solu-Medrol taper ICU management per Dr. Carver Cardiology on consult appreciate recommendations Echocardiogram reviewed, EF of 50-55% with RVSP of 44.92 BiPAP as needed Continue with pulmonary hygiene, coughing and deep breathing exercises, and supportive care. Supplemental oxygen to maintain oxygen saturations of 92% or better. Continue nebulizer treatments. Budesonide and DuoNeb GI and DVT prophylaxis. Protonix and ASA We will continue to monitor labs/results and adjust treatment as necessary. Thank you for this consultation we will continue to follow this patient with you Further recommendations pending. I, the signing physician performed an examination of the patient, discussed and directed their management with the nurse practitioner. I have reviewed the nurse practitioner's note and agree with the documented findings, orders and plan of care.
[2018-06-27 11:48] LABS: Glucose,Whole Blood 131 mg/dL (75-99)
--- NOTE | 2018-06-27 13:37 | P.PN ---
Subjective Progress Note Date: 06/27/18 This is an 83-year old male with a past medical history of CHF, COPD, chronic kidney disease stage III, and chronic respiratory failure. The patient presented to [facility] with respiratory distress, from there he was transferred to [facility]. He is found to have bilateral pneumonia. Patient is quite confused and a very poor historian. While in the emergency department did go into A.fib with RVR and did have significant hypotension. He required a central line and vasopressors were started at 10mcg/min. His chest xray revealed COPD as well as bilateral pneumonia. ABG showed a PH of 7.3, pCO2 58, pO2 68, HCO3 of 30, consistent with hypercapnia, hypoxia and respiratory acidosis. He was started on Cardizem IV, he did converted to normal sinus rhythm , Cardizem was discontinued and he was started on Amiodarone and a heparin infusion. Blood and sputum cultures were obtained, he was started on Levofloxacin, Zosyn, and Vancomycin and transferred to the ICU unit. 06/25: Patient remains in the intensive care unit and has been hemodynamically stable. Blood pressure is on the low side. He is in a sinus rhythm. IV amiodarone has been discontinued and started oral by Dr. Marti. Patient remains on heparin drip. Patient is also followed by pulmonary medicine. He has been off norepinephrine since [address] Carver has cleared him for transfer out of the intensive care unit. He is currently on Levaquin, Zosyn and vancomycin. Dr. Bedoya is on consult. Solu-Medrol is at 40 mg every 12 hours. Patient is very concerned that he does not have his hearing aids or dentures. CODE STATUS has been clarified with daughter and son which is DO NOT RESUSCITATE. Patient continues to have mild confusion. 06/26: Patient remains in the intensive care unit waiting for bed. Patient states he has intermittent episodes of trouble breathing and is bringing up sputum. Sputum cultures in progress. He does complain of dry mouth but is on humidified oxygen. His heart rate has been running in the 50s and 60s with blood pressure on the lower side for which amiodarone was decreased to 200 mg twice daily by Dr. boston. He has been afebrile. Patient continues to have mild confusion. 06/27: Patient remains in the intensive care unit waiting for a medical bed. He has been seen by Dr. Hernandez and most likely patient will be returning to his [facility] where he came from. Patient had repeat chest x-ray that shows increased aeration. Patient was determined to not be anticoagulation candidate as he is high risk for fall. He has been started on aspirin. He remains in sinus rhythm and continued on oral amiodarone. Echocardiogram reveals EF 50-55% with mild concentric left ventricular hypertrophy, mild mitral and tricuspid regurgitation, mild pulmonary hypertension. Patient walked a couple steps with physical therapy. Patient is somewhat more confused from yesterday. Berry catheter remains in place draining clear urine, adequate amounts. Review Of Systems: Constitutional: No fever, no chills, no night sweats. EENT: No headache. + loss of Hearing. No epistaxis. No sore throat. Lungs: + shortness of breath, cough, + sputum production. Cardiovascular: No chest pain, no lower extremity edema. No orthopnea. No lightheadedness or dizziness. No syncopal episodes. Abdominal: No abdominal pain. No nausea, vomiting. No diarrhea. No constipation. No bloody or tarry stools. Genitourinary: No dysuria, increased frequency, urgency. No urinary retention. Musculoskeletal: No myalgias. + muscle weakness. Integumentary: Skin tears bilat arms. No rash or pruritus. No unusual bruising. No change in hair or nails. Psychiatric: No depression. + anxiety secondary to confusion. Objective - Vital Signs Vital signs: Vital Signs Temp 98.0 F 06/27/18 00:00 Pulse 68 06/27/18 08:14 Resp 21 06/27/18 06:00 BP 133/64 06/27/18 06:00 Pulse Ox 94 L 06/27/18 08:01 Intake & Output 06/26/18 06/27/18 06/27/18 18:59 06:59 18:59 Intake Total 1130 980 Output Total 770 1185 Balance 360 -205 Weight 62.8 kg 60.9 kg Intake: IV 180 230 Piperacillin-Tazobactam 3 50 .375 gm In Dextrose/Water 1 50ml.bag @ 12.5 mls/hr IVPB Q8HR [facility] Rx#: [id number] Sodium Chloride 0.9% 1, 180 180 000 ml @ 20 mls/hr IV . Q24H [facility] Rx#:[id number] Intake, IV Titration 50 Amount Levofloxacin 750Mg-D5w 50 Pmx 750 mg In Dextrose/ Water 1 150ml.bag @ 100 mls/hr IVPB Q48H [facility] Rx#: [id number] Oral 900 750 Output: Urine 770 1185 Other: Voiding Method Indwelling Catheter Indwelling Catheter - Exam General appearance: cooperative, disheveled, no distress - EENT Eyes: EOMI, PERRLA ENT: hard of hearing, normal oropharynx, edentulous Ears: bilateral: normal - Neck Neck: normal ROM Carotids: bilateral: upstroke normal - Respiratory Respiratory: bilateral: diminished, dullness, rales, rhonchi, wheezing, prolonged expiration - Cardiovascular Distant heart sounds Rhythm: regular Heart sounds: normal: S1, S2 - Gastrointestinal General gastrointestinal: no distended, no hepatomegaly, normal bowel sounds, no organomegaly, soft, no splenomegaly, no tenderness, Berry in place with clear reshma return - Neurologic Neurologic: CNII-XII intact - Musculoskeletal Musculoskeletal: generalized weakness, strength equal bilaterally - Psychiatric Mildly confused, oriented to person, cooperative - Labs CBC & Chem 7: 06/27/18 04:38 06/27/18 04:38 Labs: Abnormal Lab Results - Last 24 Hours (Table) 06/26/18 06/26/18 06/26/18 Range/Units 11:48 17:34 20:26 RBC (4.30-5.90) m/uL Hgb (13.0-17.5) gm/dL Hct (39.0-53.0) % MCV (80.0-100.0) fL Lymphocytes # (1.0-4.8) k/uL Carbon Dioxide (22-30) mmol/L BUN (9-20) mg/dL Glucose (74-99) mg/dL POC Glucose (mg/dL) 143 H 127 H 138 H (75-99) mg/dL Total Protein (6.3-8.2) g/dL Albumin (3.5-5.0) g/dL 06/27/18 06/27/18 06/27/18 Range/Units 04:38 04:38 07:23 RBC 2.85 L (4.30-5.90) m/uL Hgb 9.4 L (13.0-17.5) gm/dL Hct 29.8 L (39.0-53.0) % MCV 104.7 H (80.0-100.0) fL Lymphocytes # 0.1 L (1.0-4.8) k/uL Carbon Dioxide 32 H (22-30) mmol/L BUN 59 H (9-20) mg/dL Glucose 149 H (74-99) mg/dL POC Glucose (mg/dL) 129 H (75-99) mg/dL Total Protein 5.0 L (6.3-8.2) g/dL Albumin 2.8 L (3.5-5.0) g/dL Microbiology - Last 24 Hours (Table) 06/24/18 07:31 Blood Culture - Preliminary Blood No Growth after 48 hours 06/24/18 07:31 Blood Culture - Preliminary Blood No Growth after 48 hours 06/25/18 17:12 Gram Stain - Preliminary Sputum Sputum Culture - Preliminary Assessment and Plan Plan: 1. Acute hypercapnic hypoxic respiratory failure on chronic respiratory failure secondary to COPD and bilateral pneumonia. Continue nebulizers Q4 hours with Pulmicort BID, Solumedol 40mg IV Q12. Continue Zosyn, Vancomycin, and Levofloxacin. Patient is currently on nasal cannula. Consults with pulmonary medicine, infectious disease appreciated 2. Septic shock secondary to gram-negative pneumonia. Infectious disease consulted, continue Zosyn, Vancomycin, and Levofloxacin. Blood and sputum cultures ordered. Off Norepinephrine. 3. Acute COPD exacerbation. Continue antibiotics, nebulizers, pulmicort, solumedrol and continue with supplemental oxygen 4. A.Fib with RVR with paroxysmal atrial fibrillation currently in sinus rhythm. Amiodarone drip changed to oral and decreased to 200 mg twice daily. Patient on eliquis 2.5 mg twice daily. Heparin drip was discontinued. Cardiology consult appreciated. 5. Cachexia with severe protein calorie malnutrition with BMI of 19. Ensure oral supplement ordered. 6. Hypertension. Currently hypotensive, zestril and metoprolol held 7. Hyperlipidemia. May continue on Atorvastatin 40mg daily 8. DVT prophylaxis. Eliquis 9. GI prophylaxis. Protonix 40mg daily Discharge plan: Return to [facility] Impression and plan of care have been directed as dictated by the signing physician. Roxanna Gan nurse practitioner acting as scribe for signing physician.
--- NOTE | 2018-06-27 14:48 | P.PN ---
Subjective Progress Note Date: 06/27/18 Principal diagnosis: Bilateral pneumonia, acute hypoxic respiratory failure, atrial fibrillation with rapid ventricular response, generalized weakness and medical debility, severe sepsis and septic shock related to bilateral pneumonia 06/27/2018, patient seen eval examined during the rounds clinically patient has been doing much better he is on 4 L oxygen sitting upright on the chair he has a chronic retention Foleys which is to be capped he is being evaluated for physical therapy and rehab hemodynamic status remains stable labs reviewed medications reviewed, kidney functions continued to improve, sputum studies failed to reveal any significant finding some amina was noted, urine and blood cultures have been no growth so far, chest x-ray performed earlier today continue show improvement in infiltrate 06/26/2018, patient seen eval examined during the rounds clinically patient has been doing well he is more awake and alert sitting upright in the bed he is on supplemental oxygen breathing comfortably, he is a slightly bradycardic heart rate ranges from mid 50s to mid 60s blood pressure has been stable, FiO2 slowly being titrated down to 4 L from 5 L home of his urine and sputum and blood culture so far has been negative, chest x-ray performed today reviewed and compared with the prior x-ray stable infiltrate around with baseline COPD a trace effusion cannot be excluded, patient is currently monitoring in ICU for placement in a medical bed on telemetry 06/25/2018, patient seen eval reexamined during the rounds today he remains on supplemental oxygen LK more awake and alert is breathing more comfortably, he remains on supplemental oxygen with 5 L his mental status is improved he is status post echocardiogram results and reports are reviewed patient has a fairly well ejection fraction of 50% however some component of pulmonary hypertension as noted likely multifactorial patient is now off of vasopressors he is tolerating by mouth relatively well he is being changed from IV amiodarone to oral cardiovascular services following blood gases not performed today we'll do a blood gas prior to transfer out of the ICU, labs reviewed medications reviewed radiographic studies reviewed as well critical care time spent 35 minutes 83-year-old male who is a resident of [facility] care facility admitted a large has baseline problems associated with chronic hypoxic respiratory failure end- stage lung disease and severe COPD emphysema patient was noted to be more short of breath and has a confusion and altered mental status and was eventually transferred to [facility] emergency department where he was seen eval reexamined subsequently transferred to the emergency department at [facility] on arrival he was hypotensive treated require crystalloid challenge followed by a vasopressors a central line has been placed by the emergency room physician patient is being placed on the 10 mics of levo fed his blood pressure is now 90/ 60 patient's saturation is 98% on 6 L oxygen, he is awake but the does not give any detailed history he has obvious short leg shortness of breath I reviewed his arterial blood gas performed stat basis he has component of hypercapnia and respiratory acidosis, his chest x-ray revealed COPD-like process of bilateral consolidation along with pleural effusion, pleural effusion appears to be small consolidation is mostly on the basal area central line in his left internal jugular, patient had an episode of A. fib with rapid ventricular response however responded with Cardizem drip and is back to sinus rhythm Objective - Vital Signs Vital signs: Vital Signs Temp 97.4 F L 06/27/18 08:00 Pulse 72 06/27/18 11:50 Resp 20 06/27/18 10:00 BP 147/78 06/27/18 10:00 Pulse Ox 97 06/27/18 10:00 Intake & Output 06/26/18 06/27/18 06/27/18 18:59 06:59 18:59 Intake Total 1130 980 630 Output Total 770 1185 235 Balance 360 -205 395 Weight 62.8 kg 60.9 kg 60.9 kg Intake: IV 180 230 80 Piperacillin-Tazobactam 3 50 .375 gm In Dextrose/Water 1 50ml.bag @ 12.5 mls/hr IVPB Q8HR [facility] Rx#: [id number] Sodium Chloride 0.9% 1, 180 180 80 000 ml @ 20 mls/hr IV . Q24H [facility] Rx#:[id number] Intake, IV Titration 50 250 Amount Levofloxacin 750Mg-D5w 50 Pmx 750 mg In Dextrose/ Water 1 150ml.bag @ 100 mls/hr IVPB Q48H [facility] Rx#: [id number] Vancomycin 1,000 mg In 250 Sodium Chloride 0.9% 250 ml @ 125 mls/hr IVPB Q24H [facility] Rx#:[id number] Oral 900 750 300 Output: Urine 770 1185 235 Other: Voiding Method Indwelling Catheter Indwelling Catheter Indwelling Catheter - Exam - Constitutional General appearance: cooperative, disheveled, mild distress more awake and alert - EENT Eyes: EOMI, PERRLA, poor dentition, normal appearance ENT: hard of hearing, normal oropharynx Ears: bilateral: normal - Neck Neck: normal ROM Carotids: bilateral: upstroke normal Thyroid: bilateral: normal size - Respiratory Respiratory: bilateral: diminished, dullness (Bilateral basis less than one fourth of the lung), rales (Crackles at the bases), rhonchi (Expiratory), wheezing (Bilateral expiratory), prolonged expiration, negative: prolonged inspiration, other, overall improved exam compared to yesterday - Cardiovascular Rhythm: regular Heart sounds: normal: S1, S2 - Gastrointestinal General gastrointestinal: soft - Neurologic Neurologic: CNII-XII intact - Musculoskeletal Musculoskeletal: generalized weakness, strength equal bilaterally - Psychiatric Psychiatric: A&O x's 3 Very slow to respon - Labs CBC & Chem 7: 06/27/18 04:38 06/27/18 04:38 Labs: Abnormal Lab Results - Last 24 Hours (Table) 06/26/18 06/26/18 06/27/18 Range/Units 17:34 20:26 04:38 RBC 2.85 L (4.30-5.90) m/uL Hgb 9.4 L (13.0-17.5) gm/dL Hct 29.8 L (39.0-53.0) % MCV 104.7 H (80.0-100.0) fL Lymphocytes # 0.1 L (1.0-4.8) k/uL Carbon Dioxide (22-30) mmol/L BUN (9-20) mg/dL Glucose (74-99) mg/dL POC Glucose (mg/dL) 127 H 138 H (75-99) mg/dL Total Protein (6.3-8.2) g/dL Albumin (3.5-5.0) g/dL 06/27/18 06/27/18 06/27/18 Range/Units 04:38 07:23 11:37 RBC (4.30-5.90) m/uL Hgb (13.0-17.5) gm/dL Hct (39.0-53.0) % MCV (80.0-100.0) fL Lymphocytes # (1.0-4.8) k/uL Carbon Dioxide 32 H (22-30) mmol/L BUN 59 H (9-20) mg/dL Glucose 149 H (74-99) mg/dL POC Glucose (mg/dL) 129 H 131 H (75-99) mg/dL Total Protein 5.0 L (6.3-8.2) g/dL Albumin 2.8 L (3.5-5.0) g/dL Microbiology - Last 24 Hours (Table) 06/25/18 17:12 Gram Stain - Preliminary Sputum Sputum Culture - Preliminary Amina albicans 06/24/18 07:31 Blood Culture - Preliminary Blood No Growth after 72 hours 06/24/18 07:31 Blood Culture - Preliminary Blood No Growth after 72 hours Assessment and Plan Assessment: Bilateral pneumonia A. fib with rapid ventricular response likely related to above Severe sepsis associated with bilateral pneumonia and septic shock clinically and radiographically continued to improve Acute hypoxic and hypercapnic respiratory failure, Acute COPD exacerbation, Coronary artery disease Pulmonary hypertension likely related to cor pulmonale Altered mental status multifactorial process Hypercapnic hypoxic respiratory failure acute on chronic Advanced dementia and Alzheimer's disease Plan: Gentle rehydration, encourage patient to take by mouth Broad spectrum antibiotics, can be simplified to oral as per ID recommendation Breathing treatments Taper and DC the steroids DVT and peptic ulcer disease prophylaxis Repeat labs x-rays reviewed Further recommendations pending plan of care as per clinical response of the patient Time with Patient: Greater than 30
[2018-06-27 17:38] LABS: Glucose,Whole Blood 176 mg/dL (75-99)
[2018-06-27 20:41] LABS: Glucose,Whole Blood 130 mg/dL (75-99)
[2018-06-28] MEDS: PIPERACILLIN-TAZOBACTAM 3.375 GM in DEXTROSE/WATER 1 50ML.BAG IVPB SCH ×3 (05:35→21:48)
--- NOTE | 2018-06-28 06:35 | XR ---
EXAMINATION TYPE: XR chest 1V portable DATE OF EXAM: 06/28/2018 HISTORY: pneumonia. REFERENCE: Previous study dated 06/27/2018. FINDINGS: A left internal jugular catheter remains in place. Its tip is at the cavoatrial junction. Lung volumes are prominent. There is granulomatous disease in the right upper lobe. There is bibasila r airspace disease. This has worsened slightly from previous. There are small, bilateral effusions. T he heart is not enlarged. IMPRESSION: 1. WORSENING BIBASILAR AIRSPACE DISEASE. 2. SMALL, BILATERAL EFFUSIONS. 3. COPD. 4. EVIDENCE OF OLD GRANULOMATOUS DISEASE.
--- NOTE | 2018-06-28 07:07 | P.PN ---
Subjective Progress Note Date: 06/28/18 Principal diagnosis: Paroxysmal atrial fibrillation The patient is an 83-year-old gentleman who was transferred from [facility] to [facility] after he was diagnosed with bilateral pneumonia at [facility]. Currently the patient is on BiPAP and he is confused and poor historian and the history was taken mainly from the chart as well as from the nurse taking care of the patient. The patient does have an extensive past medical history consistent off advanced chronic obstructive pulmonary disease as well as chronic respiratory failure and he resides at an extended care facility. Beside that he does have underlying dementia, coronary artery disease, hypertension, and dyslipidemia. On follow-up with the patient today, June 282017, he is doing better. He remained in normal sinus mechanism. The heart rate is a slightly better after I did decrease the dose of amiodarone. The oral anticoagulation was stopped yesterday because the patient is at high risk of falling and bleeding which I would agree with. Beside that, no cardiovascular issues overnight. Objective - Vital Signs Vital signs: Vital Signs Temp 97.9 F 06/28/18 04:00 Pulse 67 06/28/18 04:00 Resp 20 06/28/18 04:00 BP 114/58 06/28/18 04:00 Pulse Ox 92 L 06/28/18 04:00 Intake & Output 06/27/18 06/28/18 06/28/18 18:59 06:59 18:59 Intake Total 1050 440 Output Total 570 2000 Balance 480 -1560 Weight 60.9 kg 57.2 kg Intake: IV 200 140 Sodium Chloride 0.9% 1, 200 140 000 ml @ 20 mls/hr IV . Q24H [facility] Rx#:[id number] Intake, IV Titration 250 Amount Vancomycin 1,000 mg In 250 Sodium Chloride 0.9% 250 ml @ 125 mls/hr IVPB Q24H [facility] Rx#:[id number] Oral 600 300 Output: Urine 570 2000 Other: Voiding Method Indwelling Catheter Indwelling Catheter - Constitutional General appearance: Present: no acute distress - Respiratory Respiratory: bilateral: diminished - Cardiovascular Rhythm: regular Heart sounds: normal: S1, S2 - Labs CBC & Chem 7: 06/27/18 04:38 06/27/18 04:38 Labs: Abnormal Lab Results - Last 24 Hours (Table) 10/06/27/18 06/27/18 Range/Units 07:23 11:37 17:27 POC Glucose (mg/dL) 129 H 131 H 176 H (75-99) mg/dL 06/27/18 Range/Units 20:29 POC Glucose (mg/dL) 130 H (75-99) mg/dL Microbiology - Last 24 Hours (Table) 06/25/18 17:12 Gram Stain - Preliminary Sputum Sputum Culture - Preliminary Amina albicans 06/24/18 07:31 Blood Culture - Preliminary Blood No Growth after 72 hours 06/24/18 07:31 Blood Culture - Preliminary Blood No Growth after 72 hours Assessment and Plan Assessment: Assessment #1 acute hypoxic respiratory failure #2 COPD exacerbation #3 bilateral pneumonia #4 known advanced COPD #5 known chronic respiratory failure #6 paroxysmal atrial fibrillation #7 coronary artery disease "by history" #8 hypertension #9 dyslipidemia #10 underlying dementia Plan #1 continue the current medical regimen including the current dose of amiodarone by mouth #2 continue holding anticoagulation. The patient is at high risk of falling and bleeding #3 the echo was reviewed and revealed normal LV function #5 follow-up with the patient
[2018-06-28] MEDS: SODIUM CHLORIDE 0.9% 1,000 ML IV SCH ×2 (07:15→15:16)
[2018-06-28 07:33] LABS: Glucose,Whole Blood 86 mg/dL (75-99)
[2018-06-28 07:56] LABS: Basophils % (A) 0 %; Eosinophils % (A) 0 %; HCT 32.7 % (39.0-53.0); HGB 10.3 gm/dL (13.0-17.5); Hypochromasia Slight; Lymphocytes # (A) 0.3 k/uL (1.0-4.8); Lymphocytes % (A) 2 %; MCH 32.5 pg (25.0-35.0); MCHC 31.3 g/dL (31.0-37.0); MCV 103.6 fL (80.0-100.0); Macrocytosis Slight; Mean Platelet Volume 7.7; Monocytes # (A) 0.9 k/uL (0-1.0); Monocytes % (A) 6 %; Neutrophils # (A) 13.7 k/uL (1.3-7.7); Neutrophils % (A) 91 %; Platelet Count 205 k/uL (150-450); RBC 3.16 m/uL (4.30-5.90); RDW 12.3 % (11.5-15.5); WBC 15.1 k/uL (3.8-10.6)
[2018-06-28] MEDS: IPRATROPIUM-ALBUTEROL 3 ML NEB INHALATION SCH ×5 (07:58→19:54)
[2018-06-28] MEDS: BUDESONIDE 0.5 MG/2 ML NEBU INHALATION SCH ×2 (07:58→19:53)
[2018-06-28] MEDS ORDERED: VANCOMYCIN 1,250 MG in SODIUM CHLORIDE 0.9% 250 ML IVPB SCH (08:00)
[2018-06-28 08:10] LABS: Albumin 2.7 g/dL (3.5-5.0); Calcium 10.1 mg/dL (8.4-10.2); Magnesium 2.5 mg/dL (1.6-2.3); Potassium 4.5 mmol/L (3.5-5.1); Total Bilirubin 0.5 mg/dL (0.2-1.3)
--- NOTE | 2018-06-28 08:11 | PN ---
PROGRESS NOTE DATE OF SERVICE: 06/27/2018. REASON FOR FOLLOWUP: Pneumonia. INTERVAL HISTORY: The patient is currently afebrile. He is breathing more comfortably. Patient denies having any chest pain or cough. No abdominal pain or diarrhea. EXAMINATION: Blood pressure is 122/85 with a pulse of 78. Temperature 97.7. He is 97% on 3 L nasal cannula. General description is an elderly male up in the bed in no distress. RESPIRATORY SYSTEM: Unlabored breathing. Some coarse breath sounds in the bases. No wheeze. HEART: S1, S2. Regular rate and rhythm. ABDOMEN: Soft, no tenderness. LABS: Hemoglobin 9.4, white count 8.1. BUN of 59 and creatinine is 1.18. Sputum with Amina albicans. DIAGNOSTIC IMPRESSION AND PLAN: Patient admitted to the hospital with pneumonia with concern for possible resistant gram positive gram-negative. Patient's sputum has been Amina albicans and no resistant organism has been grown. Hence, we will keep the patient on Zosyn. Will discontinue the vancomycin as no gram-positive or MRSA has been seen. Continue supportive care. MMODL / IJN: [id number] /
[2018-06-28] MEDS: INSULIN ASPART 100 UNIT/ML 1 ML 10 ML VIAL SQ SCH ×4 (09:19→21:47)
[2018-06-28] MEDS: PANTOPRAZOLE 40 MG TABLET PO SCH (09:20)
[2018-06-28] MEDS: ASPIRIN 325 MG TAB PO SCH (09:20)
[2018-06-28] MEDS: methylPREDNISolone 4 MG TAB TAPER PO SCH (09:20)
[2018-06-28] MEDS: AMIODARONE 200 MG TAB PO SCH ×2 (09:20→21:56)
[2018-06-28] MEDS ORDERED: FUROSEMIDE 10 MG/ML 4 ML VIAL IV STA (09:44)
--- NOTE | 2018-06-28 09:44 | P.PN ---
Subjective Progress Note Date: 06/28/18 Principal diagnosis: Bilateral pneumonia, acute hypoxic respiratory failure, atrial fibrillation with rapid ventricular response, generalized weakness and medical debility, severe sepsis and septic shock related to bilateral pneumonia 06/28/2018, patient seen eval reexamined ICU, clinically has been doing fairly well patient is off of anticoagulation he is back in sinus rhythm hemodynamic status stable his labs reviewed medications reviewed, chest x-ray reviewed as well by basilar atelectasis infiltrates are seen slight progression cannot be excluded which likely related to effusion Ammann patient has been on IV fluids KVO him a white cell count is up likely related to steroids, renal functions continued to improve, patient will benefit from IV furosemide we'll give a single dose 06/27/2018, patient seen eval examined during the rounds clinically patient has been doing much better he is on 4 L oxygen sitting upright on the chair he has a chronic retention Foleys which is to be capped he is being evaluated for physical therapy and rehab hemodynamic status remains stable labs reviewed medications reviewed, kidney functions continued to improve, sputum studies failed to reveal any significant finding some amina was noted, urine and blood cultures have been no growth so far, chest x-ray performed earlier today continue show improvement in infiltrate 06/26/2018, patient seen eval examined during the rounds clinically patient has been doing well he is more awake and alert sitting upright in the bed he is on supplemental oxygen breathing comfortably, he is a slightly bradycardic heart rate ranges from mid 50s to mid 60s blood pressure has been stable, FiO2 slowly being titrated down to 4 L from 5 L home of his urine and sputum and blood culture so far has been negative, chest x-ray performed today reviewed and compared with the prior x-ray stable infiltrate around with baseline COPD a trace effusion cannot be excluded, patient is currently monitoring in ICU for placement in a medical bed on telemetry 06/25/2018, patient seen eval reexamined during the rounds today he remains on supplemental oxygen LK more awake and alert is breathing more comfortably, he remains on supplemental oxygen with 5 L his mental status is improved he is status post echocardiogram results and reports are reviewed patient has a fairly well ejection fraction of 50% however some component of pulmonary hypertension as noted likely multifactorial patient is now off of vasopressors he is tolerating by mouth relatively well he is being changed from IV amiodarone to oral cardiovascular services following blood gases not performed today we'll do a blood gas prior to transfer out of the ICU, labs reviewed medications reviewed radiographic studies reviewed as well critical care time spent 35 minutes 83-year-old male who is a resident of extended care facility admitted a large has baseline problems associated with chronic hypoxic respiratory failure end- stage lung disease and severe COPD emphysema patient was noted to be more short of breath and has a confusion and altered mental status and was eventually transferred to [facility] emergency department where he was seen eval reexamined subsequently transferred to the emergency department at [facility] on arrival he was hypotensive treated require crystalloid challenge followed by a vasopressors a central line has been placed by the emergency room physician patient is being placed on the 10 mics of levo fed his blood pressure is now 90/ 60 patient's saturation is 98% on 6 L oxygen, he is awake but the does not give any detailed history he has obvious short leg shortness of breath I reviewed his arterial blood gas performed stat basis he has component of hypercapnia and respiratory acidosis, his chest x-ray revealed COPD-like process of bilateral consolidation along with pleural effusion, pleural effusion appears to be small consolidation is mostly on the basal area central line in his left internal jugular, patient had an episode of A. fib with rapid ventricular response however responded with Cardizem drip and is back to sinus rhythm Objective - Vital Signs Vital signs: Vital Signs Temp 97.9 F 06/28/18 04:00 Pulse 73 06/28/18 08:15 Resp 20 06/28/18 04:00 BP 114/58 06/28/18 04:00 Pulse Ox 92 L 06/28/18 04:00 Intake & Output 06/27/18 06/28/18 06/28/18 18:59 06:59 18:59 Intake Total 1050 440 Output Total 570 2000 Balance 480 -1560 Weight 60.9 kg 57.2 kg Intake: IV 200 140 Sodium Chloride 0.9% 1, 200 140 000 ml @ 20 mls/hr IV . Q24H [facility] Rx#:[id number] Intake, IV Titration 250 Amount Vancomycin 1,000 mg In 250 Sodium Chloride 0.9% 250 ml @ 125 mls/hr IVPB Q24H [facility] Rx#:[id number] Oral 600 300 Output: Urine 570 2000 Other: Voiding Method Indwelling Catheter Indwelling Catheter - Exam - Constitutional General appearance: cooperative, disheveled, mild distress more awake and alert - EENT Eyes: EOMI, PERRLA, poor dentition, normal appearance ENT: hard of hearing, normal oropharynx Ears: bilateral: normal - Neck Neck: normal ROM Carotids: bilateral: upstroke normal Thyroid: bilateral: normal size - Respiratory Respiratory: bilateral: diminished, dullness (Bilateral basis less than one fourth of the lung), rales (Crackles at the bases), rhonchi (Expiratory), wheezing (Bilateral expiratory), prolonged expiration, negative: prolonged inspiration, other, overall improved exam compared to yesterday, however more crackles are present the bases compared to prior exam - Cardiovascular Rhythm: regular Heart sounds: normal: S1, S2 - Gastrointestinal General gastrointestinal: soft - Neurologic Neurologic: CNII-XII intact - Musculoskeletal Musculoskeletal: generalized weakness, strength equal bilaterally - Psychiatric Psychiatric: A&O x's 3 Very slow to respon - Labs CBC & Chem 7: 06/28/18 07:35 06/28/18 07:35 Labs: Abnormal Lab Results - Last 24 Hours (Table) 06/27/18 06/27/18 06/27/18 Range/Units 11:37 17:27 20:29 WBC (3.8-10.6) k/uL RBC (4.30-5.90) m/uL Hgb (13.0-17.5) gm/dL Hct (39.0-53.0) % MCV (80.0-100.0) fL Neutrophils # (1.3-7.7) k/uL Lymphocytes # (1.0-4.8) k/uL Sodium (137-145) mmol/L Chloride (98-107) mmol/L Carbon Dioxide (22-30) mmol/L BUN (9-20) mg/dL POC Glucose (mg/dL) 131 H 176 H 130 H (75-99) mg/dL Magnesium (1.6-2.3) mg/dL Total Protein (6.3-8.2) g/dL Albumin (3.5-5.0) g/dL 06/28/18 06/28/18 Range/Units 07:35 07:35 WBC 15.1 H (3.8-10.6) k/uL RBC 3.16 L (4.30-5.90) m/uL Hgb 10.3 L (13.0-17.5) gm/dL Hct 32.7 L (39.0-53.0) % MCV 103.6 H (80.0-100.0) fL Neutrophils # 13.7 H (1.3-7.7) k/uL Lymphocytes # 0.3 L (1.0-4.8) k/uL Sodium 148 H (137-145) mmol/L Chloride 111 H (98-107) mmol/L Carbon Dioxide 36 H (22-30) mmol/L BUN 52 H (9-20) mg/dL POC Glucose (mg/dL) (75-99) mg/dL Magnesium 2.5 H (1.6-2.3) mg/dL Total Protein 5.0 L (6.3-8.2) g/dL Albumin 2.7 L (3.5-5.0) g/dL Microbiology - Last 24 Hours (Table) 06/25/18 17:12 Gram Stain - Final Sputum Sputum Culture - Final Amina albicans 06/24/18 07:31 Blood Culture - Preliminary Blood No Growth after 72 hours 06/24/18 07:31 Blood Culture - Preliminary Blood No Growth after 72 hours Assessment and Plan Assessment: Small bilateral pleural effusion likely related to fluid overload Bilateral pneumonia A. fib with rapid ventricular response likely related to above Severe sepsis associated with bilateral pneumonia and septic shock clinically and radiographically continued to improve Acute hypoxic and hypercapnic respiratory failure, Acute COPD exacerbation, Coronary artery disease Pulmonary hypertension likely related to cor pulmonale Altered mental status multifactorial process Hypercapnic hypoxic respiratory failure acute on chronic Advanced dementia and Alzheimer's disease Plan: Lasix IV single dose encourage patient to take by mouth Broad spectrum antibiotics, can be simplified to oral as per ID recommendation Breathing treatments Taper and DC the steroids DVT and peptic ulcer disease prophylaxis Repeat labs x-rays Further recommendations pending plan of care as per clinical response of the patient Time with Patient: Greater than 30
[2018-06-28 12:08] LABS: Glucose,Whole Blood 116 mg/dL (75-99)
--- NOTE | 2018-06-28 12:58 | CT ---
EXAMINATION TYPE: CT brain wo con DATE OF EXAM: 06/28/2018 COMPARISON: NONE HISTORY: Altered mental status. CT DLP: 1337.4 mGycm Automated exposure control for dose reduction was used. FINDINGS: There are generalized changes of sulcal prominence and ventriculomegaly, compatible with atrophic angela nge. There is diffuse periventricular white matter lucency, compatible with chronic white matter isch emic change. There is no acute focal lesion, mass effect or midline shift identified. I do not see ev idence of intracranial blood. Visualized portions of the paranasal sinuses and mastoids are clear. The bony calvarium is intact. IMPRESSION: 1. NO ACUTE INTRACRANIAL ABNORMALITY. 2. DEGENERATIVE CHANGE.
--- NOTE | 2018-06-28 13:19 | P.CONS ---
History of Present Illness - Reason for Consult Consult date: 06/28/18 Altered mental status - Chief Complaint Altered mental status - History of Present Illness Is an 83-year-old male being evaluated by the neurology service for altered mental status. He is in the ICU [facility] and has been there being treated for bilateral pneumonia and acute hypoxic respiratory failure. He is no longer on a ventilator. He has history of atrial fibrillation with rapid ventricular response and a long history of medical debility. he is a resident of a long-term. At this admission he was diagnosed with severe sepsis with septic shock related to his pneumonia. We were asked to evaluate for some decline in his mental status. At the time of my exam he is in his ICU bed he is awake and alert and oriented to person only. He is not agitated. Nursing staff seem to think that he is less oriented and in the last couple days. I did order a stat CT of the brain which showed no acute intracranial abnormalities. It did show chronic small vessel changes with some mild age-appropriate cerebral atrophy. Review of Systems All systems: negative Constitutional: Reports as per HPI Past Medical History Past Medical History: Asthma, Coronary Artery Disease (CAD), Heart Failure, COPD , CVA/TIA, Hyperlipidemia, Hypertension, Prostate Disorder, Renal Disease, Skin Disorder Additional Past Medical History / Comment(s): Daughter, Mandi, states pt recently admitted to [facility] with abdominal distention/ascities/hematuria and had peck catheter placed. Other Hx: Asthma, bronchitis, pulmonary fibrosis, sinus problems, O2 3l/nc, AAA low aorta, PMH documents CVA but ankita is unsure if he ever had one, recent shaking-was to have neuro work up, BPH, CKD stage IV, psoriasis, protein calorie malnutrition, hyponatremia. History of Any Multi-Drug Resistant Organisms: None Reported Past Surgical History: Ear Surgery, Heart Catheterization With Stent Additional Past Surgical History / Comment(s): 2010 PCI with stent to cx, bilateral cataract removals, L eye surgery for detached retina, L ear surgery for meniere's disease, colonoscopy, L knee arthroscopy. Additional Past Anesthesia/Blood Transfusion Reaction / Comm: [facility] documents respiratory difficulty post operatively Date of Last Stent Placement:: 2010 Smoking Status: Former smoker Past Alcohol Use History: Occasional Additional Past Alcohol Use History / Comment(s): states drinks Vodka at times - Past Family History Mother Family Medical History: Osteoarthritis (OA) Additional Family Medical History / Comment(s): at 86 from CVA Father Family Medical History: No Reported History Additional Family Medical History / Comment(s): Father young in a construction accident. Medications and Allergies Home Medications Medication Instructions Recorded Confirmed Type ALPRAZolam [Xanax] 0.25 mg PO TID PRN 06/24/18 06/24/18 History Acetaminophen with Codeine 1 tab PO Q4H PRN 06/24/18 06/24/18 History [Tylenol w/codeine #3] Ammonium Lactate Lotion 1 applic TOPICAL HS 06/24/18 06/24/18 History [Lac-Hydrin 12% Lotion] Atorvastatin [Lipitor] 40 mg PO HS 06/24/18 06/24/18 History Budesonide [Pulmicort] 0.5 mg INHALATION RT-DAILY 06/24/18 06/24/18 History Citalopram Hydrobromide [CeleXA] 20 mg PO DAILY 06/24/18 06/24/18 History Clopidogrel [Plavix] 75 mg PO HS 06/24/18 06/24/18 History Famotidine [Pepcid] 20 mg PO DAILY 06/24/18 06/24/18 History Finasteride [Proscar] 5 mg PO DAILY 06/24/18 06/24/18 History Furosemide [Lasix] 40 mg PO BID@0600,1200 06/24/18 06/24/18 History Ipratropium-Albuterol Nebulize 3 ml INHALATION RT-QID 06/24/18 06/24/18 History [Duoneb 0.5 mg-3 mg/3 ml Soln] Lactulose 20 gm PO BID@0800,2000 06/24/18 06/24/18 History Lisinopril [Zestril] 2.5 mg PO DAILY 06/24/18 06/24/18 History Metoprolol Succinate [Toprol XL] 25 mg PO DAILY 06/24/18 06/24/18 History Mirtazapine [Remeron] 15 mg PO HS 06/24/18 06/24/18 History Montelukast [Singulair] 10 mg PO HS 06/24/18 06/24/18 History Spironolactone [Aldactone] 25 mg PO DAILY 06/24/18 06/24/18 History Tamsulosin [Flomax] 0.4 mg PO DAILY 06/24/18 06/24/18 History Allergies Allergy/AdvReac Type Severity Reaction Status Date / Time No Known Allergies Allergy Verified 06/24/18 08:46 Physical Exam Vitals: Vital Signs Temp Pulse Resp BP Pulse Ox 06/28/18 12:26 73 06/28/18 12:14 72 06/28/18 12:00 98 F 75 22 115/65 97 06/28/18 10:00 73 29 H 101/74 96 06/28/18 08:15 73 06/28/18 08:00 98.4 F 69 18 118/71 99 06/28/18 07:58 75 06/28/18 04:00 97.9 F 67 20 114/58 92 L 06/28/18 02:00 110/83 91 L 06/28/18 00:00 98.0 F 69 11 L 96/69 06/27/18 23:04 14 96/69 06/27/18 22:00 27 H 128/74 91 L 06/27/18 20:24 72 06/27/18 20:00 97.7 F 78 16 122/85 96 06/27/18 19:57 70 06/27/18 18:00 70 31 H 117/65 98 06/27/18 16:40 68 06/27/18 16:29 70 06/27/18 16:00 98.3 F 66 13 99 06/27/18 14:00 70 28 H 118/82 98 Intake and Output 06/27/18 06/28/18 06/28/18 22:59 06:59 14:59 Intake Total 480 40 Output Total 675 1575 Balance -195 -1535 Intake: IV 180 40 Sodium Chloride 0.9% 1, 180 40 000 ml @ 20 mls/hr IV . Q24H [facility] Rx#:[id number] Oral 300 Output: Urine 675 1575 Other: Voiding Method Indwelling Catheter Indwelling Catheter Indwelling Catheter Weight 57.2 kg - Constitutional General appearance: no acute distress, thin - EENT Eyes: no abnormal pupil, EOMI, PERRLA, no ptosis ENT: hard of hearing - Neck Neck: normal ROM, no rigidity - Respiratory Respiratory: negative: prolonged expiration, prolonged inspiration - Cardiovascular Rhythm: regular - Gastrointestinal General gastrointestinal: no distended, no tenderness - Neurologic The patient is awake and oriented to person only. Speech is fluent but mildly dysarthric. A long-time friend at bedside says this is his baseline. There is no facial asymmetry. There is no lateralizing weakness. Strength is full in bilateral upper lower extremities. There is no sensory deficit noted. Results CBC & Chem 7: 06/28/18 07:35 06/28/18 07:35 Labs: Abnormal Lab Results - Last 24 Hours (Table) 06/27/18 06/27/18 06/28/18 Range/Units 17:27 20:29 07:35 WBC 15.1 H (3.8-10.6) k/uL RBC 3.16 L (4.30-5.90) m/uL Hgb 10.3 L (13.0-17.5) gm/dL Hct 32.7 L (39.0-53.0) % MCV 103.6 H (80.0-100.0) fL Neutrophils # 13.7 H (1.3-7.7) k/uL Lymphocytes # 0.3 L (1.0-4.8) k/uL Sodium (137-145) mmol/L Chloride (98-107) mmol/L Carbon Dioxide (22-30) mmol/L BUN (9-20) mg/dL POC Glucose (mg/dL) 176 H 130 H (75-99) mg/dL Magnesium (1.6-2.3) mg/dL Total Protein (6.3-8.2) g/dL Albumin (3.5-5.0) g/dL 06/28/18 06/28/18 Range/Units 07:35 11:50 WBC (3.8-10.6) k/uL RBC (4.30-5.90) m/uL Hgb (13.0-17.5) gm/dL Hct (39.0-53.0) % MCV (80.0-100.0) fL Neutrophils # (1.3-7.7) k/uL Lymphocytes # (1.0-4.8) k/uL Sodium 148 H (137-145) mmol/L Chloride 111 H (98-107) mmol/L Carbon Dioxide 36 H (22-30) mmol/L BUN 52 H (9-20) mg/dL POC Glucose (mg/dL) 116 H (75-99) mg/dL Magnesium 2.5 H (1.6-2.3) mg/dL Total Protein 5.0 L (6.3-8.2) g/dL Albumin 2.7 L (3.5-5.0) g/dL Microbiology - Last 24 Hours (Table) 06/24/18 07:31 Blood Culture - Preliminary Blood No Growth after 96 hours 06/24/18 07:31 Blood Culture - Preliminary Blood No Growth after 96 hours 06/25/18 17:12 Gram Stain - Final Sputum Sputum Culture - Final Amina albicans Assessment and Plan (1) Altered mental status Current Visit: Yes Status: Suspected Code(s): R41.82 - ALTERED MENTAL STATUS , UNSPECIFIED SNOMED Code(s): 435654240 (2) Atrial fibrillation with RVR Current Visit: Yes Status: Chronic Code(s): I48.91 - UNSPECIFIED ATRIAL FIBRILLATION SNOMED Code(s): 889925966722572 (3) Sepsis Current Visit: Yes Status: Acute Code(s): A41.9 - SEPSIS, UNSPECIFIED ORGANISM SNOMED Code(s): 47799301 (4) Respiratory failure Current Visit: Yes Status: Acute Code(s): J96.90 - RESPIRATORY FAILURE, UNSP , UNSP W HYPOXIA OR HYPERCAPNIA SNOMED Code(s): 448031943 (5) Encephalopathy Current Visit: Yes Status: Acute Code(s): G93.40 - ENCEPHALOPATHY, UNSPECIFIED SNOMED Code(s): 83617182 (6) Dementia Current Visit: Yes Status: Chronic Code(s): F03.90 - UNSPECIFIED DEMENTIA WITHOUT BEHAVIORAL DISTURBANCE SNOMED Code(s): 78222162 (7) Pneumonia Current Visit: Yes Status: Acute Code(s): J18.9 - PNEUMONIA, UNSPECIFIED ORGANISM SNOMED Code(s): 258861525 Plan: This patient has altered mental status due to multifactorial encephalopathy. On top of his baseline dementia this is due to his recent infection and respiratory problems. Stat CT of the brain showed no acute intracranial abnormalities. We will order an EEG. No further neurological workup is needed. Continue care and treatment in the ICU. Continue neurological checks. We will continue to follow and make recommendations based on the above study. I have performed a history and physical on the above patient. I have reviewed the above note, and agree.
--- NOTE | 2018-06-28 14:02 | PN ---
PROGRESS NOTE DATE OF SERVICE: 06/28/2018. He is confused at this time. On physical examination, he is lying in bed. His blood pressure is 115/65, respiratory rate of 22, pulse rate of 75, temperature 98, O2 SAT on 3 L by nasal cannula is 97%. HEENT reveals pupils that are equal. No jugular venous distention. Chest reveals decreased breath sounds. Cardiovascular system is S1, S2. Abdomen is soft. There is trace pedal edema. White count is 15.1, hemoglobin of 10.3. Sodium 148, potassium 4.5, chloride 111, bicarb 36, BUN 52, creatinine of 1.1. IMPRESSION: 1. Severe asthma with chronic obstructive pulmonary disease with acute exacerbation. 2. Aspiration-type pneumonia. 3. Medical debility. 4. Possible psychosis. 5. Elevated white blood cell count, which may in fact be due to his ongoing need for steroids versus new infection. At this point in time, continue him on his current medications. Avoid anticoagulation, increase his activity level. Have Neurology further evaluate him. Depending on how he does, we shall make further changes to his care. MMODL / IJN: [id number] /
[2018-06-28] MEDS ORDERED: ALPRAZolam 0.25 MG TAB PO PRN (15:13)
[2018-06-28] MEDS ORDERED: LORazepam 2 MG/ML INJ IV STA (15:17)
[2018-06-28 17:53] LABS: Glucose,Whole Blood 125 mg/dL (75-99)
--- NOTE | 2018-06-28 18:17 | P.PN ---
Subjective Progress Note Date: 06/28/18 Principal diagnosis: Worsening encephalopathy Patient has been declining steadily with mental status as currently he is alert and oriented only 0 patient is not following commands mumbling some warts but does not follow commands and difficult to reorient. Objective - Vital Signs Vital signs: Vital Signs Temp 98 F 06/28/18 12:00 Pulse 103 H 06/28/18 17:14 Resp 22 06/28/18 12:00 BP 115/65 06/28/18 12:00 Pulse Ox 97 06/28/18 12:00 Intake & Output 06/27/18 06/28/18 06/28/18 18:59 06:59 18:59 Intake Total 1050 440 510 Output Total 570 2000 490 Balance 480 -1560 20 Weight 60.9 kg 57.2 kg Intake: IV 200 140 160 Sodium Chloride 0.9% 1, 200 140 160 000 ml @ 20 mls/hr IV . Q24H [facility] Rx#:[id number] Intake, IV Titration 250 350 Amount Piperacillin-Tazobactam 3 50 .375 gm In Dextrose/Water 1 50ml.bag @ 12.5 mls/hr IVPB Q8H [facility] Rx#: [id number] Sodium Chloride 0.9% 1, 300 000 ml @ 20 mls/hr IV . Q24H [facility]A Rx#:[id number] Vancomycin 1,000 mg In 250 Sodium Chloride 0.9% 250 ml @ 125 mls/hr IVPB Q24H [facility] Rx#:[id number] Oral 600 300 Output: Urine 570 2000 490 Other: Voiding Method Indwelling Catheter Indwelling Catheter Indwelling Catheter - Exam HENT: Atraumatic, external ears normal, nose normal, oropharynx moist, no pharyngeal exudates. Neck- normal range of motion, no tenderness, supple Respiratory: No respiratory distress, normal breath sounds, no rales, no wheezing Cardiovascular: Normal rate, normal rhythm, no murmurs, no gallops, no rubs GI: Soft, nondistended, normal bowel sounds, nontender, no organomegaly, no mass, no rebound, no guarding Psychiatric: Confused does not follow commands - Labs CBC & Chem 7: 06/28/18 07:35 06/28/18 07:35 Labs: Abnormal Lab Results - Last 24 Hours (Table) 06/27/18 06/28/18 06/28/18 Range/Units 20:29 07:35 07:35 WBC 15.1 H (3.8-10.6) k/uL RBC 3.16 L (4.30-5.90) m/uL Hgb 10.3 L (13.0-17.5) gm/dL Hct 32.7 L (39.0-53.0) % MCV 103.6 H (80.0-100.0) fL Neutrophils # 13.7 H (1.3-7.7) k/uL Lymphocytes # 0.3 L (1.0-4.8) k/uL Sodium 148 H (137-145) mmol/L Chloride 111 H (98-107) mmol/L Carbon Dioxide 36 H (22-30) mmol/L BUN 52 H (9-20) mg/dL POC Glucose (mg/dL) 130 H (75-99) mg/dL Magnesium 2.5 H (1.6-2.3) mg/dL Total Protein 5.0 L (6.3-8.2) g/dL Albumin 2.7 L (3.5-5.0) g/dL 06/28/18 06/28/18 Range/Units 11:50 17:49 WBC (3.8-10.6) k/uL RBC (4.30-5.90) m/uL Hgb (13.0-17.5) gm/dL Hct (39.0-53.0) % MCV (80.0-100.0) fL Neutrophils # (1.3-7.7) k/uL Lymphocytes # (1.0-4.8) k/uL Sodium (137-145) mmol/L Chloride (98-107) mmol/L Carbon Dioxide (22-30) mmol/L BUN (9-20) mg/dL POC Glucose (mg/dL) 116 H 125 H (75-99) mg/dL Magnesium (1.6-2.3) mg/dL Total Protein (6.3-8.2) g/dL Albumin (3.5-5.0) g/dL Microbiology - Last 24 Hours (Table) 06/24/18 07:31 Blood Culture - Preliminary Blood No Growth after 96 hours 06/24/18 07:31 Blood Culture - Preliminary Blood No Growth after 96 hours 06/25/18 17:12 Gram Stain - Final Sputum Sputum Culture - Final Amina albicans Assessment and Plan Assessment: 1. Acute encephalopathy likely metabolic in nature. 2. Bilateral pneumonia. 3. Recent sepsis resolved. 4. Severe debility and deconditioning. 5. Severe protein calorie malnutrition. 6. Anemia. Plan discussed with nursing staff at the bedside and family members as well and patient will have CT scan done to rule out any intracranial process we will optimize medical management and consider swallow evaluation upon return from CT scan. Patient with guarded prognosis
[2018-06-28 22:11] LABS: Glucose,Whole Blood 138 mg/dL (75-99)
[2018-06-29] MEDS: PIPERACILLIN-TAZOBACTAM 3.375 GM in DEXTROSE/WATER 1 50ML.BAG IVPB SCH ×3 (04:41→20:40)
[2018-06-29 05:50] LABS: HCT 32.2 % (39.0-53.0); HGB 10.1 gm/dL (13.0-17.5); Hypochromasia Moderate; MCH 32.9 pg (25.0-35.0); MCHC 31.5 g/dL (31.0-37.0); MCV 104.4 fL (80.0-100.0); Macrocytosis Slight; Mean Platelet Volume 7.5; Platelet Count 172 k/uL (150-450); RBC 3.08 m/uL (4.30-5.90); RDW 12.4 % (11.5-15.5); WBC 12.3 k/uL (3.8-10.6)
[2018-06-29 06:10] LABS: Calcium 9.8 mg/dL (8.4-10.2); Magnesium 2.5 mg/dL (1.6-2.3); Phosphorus 4.6 mg/dL (2.5-4.5); Potassium 4.4 mmol/L (3.5-5.1)
--- NOTE | 2018-06-29 06:41 | XR ---
EXAMINATION TYPE: XR chest 1V portable DATE OF EXAM: 06/29/2018 HISTORY: pneumonia. REFERENCE: Previous study dated 06/28/2018. FINDINGS: The lungs are overinflated. There is evidence of old granulomatous disease. There is contin uing bibasilar airspace disease. There are small, bilateral effusions. There is a left internal jugular catheter in place. Its tip is in the lower IVC. IMPRESSION: NO SIGNIFICANT INTERVAL CHANGE IN APPEARANCE OF THE CHEST.
--- NOTE | 2018-06-29 07:50 | P.PN ---
Subjective Progress Note Date: 06/29/18 Principal diagnosis: Paroxysmal atrial fibrillation The patient is an 83-year-old gentleman who was transferred from [facility] to [facility] after he was diagnosed with bilateral pneumonia at [facility]. Currently the patient is on BiPAP and he is confused and poor historian and the history was taken mainly from the chart as well as from the nurse taking care of the patient. The patient does have an extensive past medical history consistent off advanced chronic obstructive pulmonary disease as well as chronic respiratory failure and he resides at an extended care facility. Beside that he does have underlying dementia, coronary artery disease, hypertension, and dyslipidemia. On follow-up with the patient today, June 292017, he is doing better. He remained in normal sinus mechanism. The heart rate is a slightly better after I did decrease the dose of amiodarone. The blood pressure has been marginally low but the systolic blood pressure is above 200 mmHg. The oral anticoagulation was stopped yesterday because the patient is at high risk of falling and bleeding which I would agree with. Beside that, no cardiovascular issues overnight. Objective - Vital Signs Vital signs: Vital Signs Temp 97.8 F 06/29/18 04:00 Pulse 70 06/29/18 02:00 Resp 33 H 06/29/18 04:00 BP 100/71 06/29/18 04:00 Pulse Ox 98 06/29/18 04:00 Intake & Output 06/28/18 06/29/18 06/29/18 18:59 06:59 18:59 Intake Total 590 220 Output Total 690 940 Balance -100 -720 Weight 55.4 kg Intake: IV 240 220 Sodium Chloride 0.9% 1, 240 220 000 ml @ 20 mls/hr IV . Q24H [facility]A Rx#:[id number] Intake, IV Titration 350 Amount Piperacillin-Tazobactam 3 50 .375 gm In Dextrose/Water 1 50ml.bag @ 12.5 mls/hr IVPB Q8H [facility]IKA Rx#: [id number] Sodium Chloride 0.9% 1, 300 000 ml @ 20 mls/hr IV . Q24H RITIKA Rx#:[id number] Output: Urine 690 940 Other: Voiding Method Indwelling Catheter Indwelling Catheter - Labs CBC & Chem 7: 06/29/18 04:50 10/21/18 04:50 Labs: Abnormal Lab Results - Last 24 Hours (Table) 06/28/18 06/28/18 06/28/18 Range/Units 07:35 07:35 11:50 WBC 15.1 H (3.8-10.6) k/uL RBC 3.16 L (4.30-5.90) m/uL Hgb 10.3 L (13.0-17.5) gm/dL Hct 32.7 L (39.0-53.0) % MCV 103.6 H (80.0-100.0) fL Neutrophils # 13.7 H (1.3-7.7) k/uL Lymphocytes # 0.3 L (1.0-4.8) k/uL Sodium 148 H (137-145) mmol/L Chloride 111 H (98-107) mmol/L Carbon Dioxide 36 H (22-30) mmol/L BUN 52 H (9-20) mg/dL Creatinine (0.66-1.25) mg/dL Glucose (74-99) mg/dL POC Glucose (mg/dL) 116 H (75-99) mg/dL Phosphorus (2.5-4.5) mg/dL Magnesium 2.5 H (1.6-2.3) mg/dL Total Protein 5.0 L (6.3-8.2) g/dL Albumin 2.7 L (3.5-5.0) g/dL 06/28/18 06/28/18 06/29/18 Range/Units 17:49 21:46 04:50 WBC 12.3 H (3.8-10.6) k/uL RBC 3.08 L (4.30-5.90) m/uL Hgb 10.1 L (13.0-17.5) gm/dL Hct 32.2 L (39.0-53.0) % MCV 104.4 H (80.0-100.0) fL Neutrophils # (1.3-7.7) k/uL Lymphocytes # (1.0-4.8) k/uL Sodium (137-145) mmol/L Chloride (98-107) mmol/L Carbon Dioxide (22-30) mmol/L BUN (9-20) mg/dL Creatinine (0.66-1.25) mg/dL Glucose (74-99) mg/dL POC Glucose (mg/dL) 125 H 138 H (75-99) mg/dL Phosphorus (2.5-4.5) mg/dL Magnesium (1.6-2.3) mg/dL Total Protein (6.3-8.2) g/dL Albumin (3.5-5.0) g/dL 06/29/18 Range/Units 04:50 WBC (3.8-10.6) k/uL RBC (4.30-5.90) m/uL Hgb (13.0-17.5) gm/dL Hct (39.0-53.0) % MCV (80.0-100.0) fL Neutrophils # (1.3-7.7) k/uL Lymphocytes # (1.0-4.8) k/uL Sodium 149 H (137-145) mmol/L Chloride 110 H (98-107) mmol/L Carbon Dioxide 39 H (22-30) mmol/L BUN 53 H (9-20) mg/dL Creatinine 1.34 H (0.66-1.25) mg/dL Glucose 102 H (74-99) mg/dL POC Glucose (mg/dL) (75-99) mg/dL Phosphorus 4.6 H (2.5-4.5) mg/dL Magnesium 2.5 H (1.6-2.3) mg/dL Total Protein (6.3-8.2) g/dL Albumin (3.5-5.0) g/dL Microbiology - Last 24 Hours (Table) 06/28/18 15:55 Urine Culture - Preliminary Urine,Catheterized 06/24/18 07:31 Blood Culture - Preliminary Blood No Growth after 96 hours 06/24/18 07:31 Blood Culture - Preliminary Blood No Growth after 96 hours 06/25/18 17:12 Gram Stain - Final Sputum Sputum Culture - Final Amina albicans Assessment and Plan Assessment: Assessment #1 acute hypoxic respiratory failure #2 COPD exacerbation #3 bilateral pneumonia #4 known advanced COPD #5 known chronic respiratory failure #6 paroxysmal atrial fibrillation #7 coronary artery disease "by history" #8 hypertension #9 dyslipidemia #10 underlying dementia Plan #1 continue the current medical regimen including the current dose of amiodarone by mouth #2 continue holding anticoagulation. The patient is at high risk of falling and bleeding #3 the blood pressure has been marginally low but the systolic blood pressure is above 100 mmHg. #4 the echo was reviewed and revealed normal LV function
[2018-06-29] MEDS: BUDESONIDE 0.5 MG/2 ML NEBU INHALATION SCH ×2 (08:39→20:23)
[2018-06-29] MEDS: IPRATROPIUM-ALBUTEROL 3 ML NEB INHALATION SCH ×4 (08:39→20:23)
[2018-06-29 08:57] LABS: Glucose,Whole Blood 95 mg/dL (75-99)
[2018-06-29] MEDS: INSULIN ASPART 100 UNIT/ML 1 ML 10 ML VIAL SQ SCH ×4 (10:21→20:41)
[2018-06-29] MEDS: ASPIRIN 325 MG TAB PO SCH ×2 (10:22→14:08)
[2018-06-29] MEDS: AMIODARONE 200 MG TAB PO SCH ×3 (10:22→20:40)
[2018-06-29] MEDS: methylPREDNISolone 4 MG TAB TAPER PO SCH ×2 (10:23→14:09)
[2018-06-29] MEDS: PANTOPRAZOLE 40 MG TABLET PO SCH ×2 (10:23→14:08)
[2018-06-29 10:51] LABS: ABG Base Excess 14.7 mmol/L; ABG HCO3 39 mmol/L (21-25); ABG Oxygen Saturation 97.6 % (94-97); ABG PCO2 62 mmHg (35-45); ABG PH 7.41 (7.35-7.45); ABG PO2 90 mmHg (83-108); ABG TCO2 41 mmol/L (19-24)
[2018-06-29 12:23] LABS: Glucose,Whole Blood 94 mg/dL (75-99)
[2018-06-29] MEDS ORDERED: methylPREDNISolone 4 MG TAB PO ONE (14:15)
--- NOTE | 2018-06-29 14:19 | P.PN ---
Subjective Progress Note Date: 06/29/18 Principal diagnosis: Altered mental status This is an 83-year-old male continuing to be evaluated by the neurology service in the [facility] ICU. Recall is been treated for bilateral pneumonia and acute hypoxic respiratory failure. He is no longer on a ventilator. His mental status continues to wax and wane. His declined a little since my exam yesterday. Recall that a stat CT of the brain done yesterday showed no acute intracranial abnormalities. I have ordered an EEG. Objective - Vital Signs Vital signs: Vital Signs Temp 97.8 F 06/29/18 12:00 Pulse 81 06/29/18 12:33 Resp 13 06/29/18 12:00 BP 110/65 06/29/18 12:00 Pulse Ox 95 06/29/18 12:00 Intake & Output 06/28/18 06/29/18 06/29/18 18:59 06:59 18:59 Intake Total 590 220 92.5 Output Total 690 940 335 Balance -100 -720 -242.5 Weight 55.4 kg Intake: IV 240 220 80 Sodium Chloride 0.9% 1, 240 220 80 000 ml @ 20 mls/hr IV . Q24H [facility] Rx#:[id number] Intake, IV Titration 350 12.5 Amount Piperacillin-Tazobactam 3 50 12.5 .375 gm In Dextrose/Water 1 50ml.bag @ 12.5 mls/hr IVPB Q8H [facility]A Rx#: [id number] Sodium Chloride 0.9% 1, 300 000 ml @ 20 mls/hr IV . Q24H RITIKA Rx#:[id number] Output: Urine 690 940 335 Other: Voiding Method Indwelling Catheter Indwelling Catheter Indwelling Catheter - Constitutional General appearance: Present: thin. Absent: cooperative - EENT Eyes: Present: EOMI, PERRLA. Absent: abnormal pupil, ptosis ENT: Present: hard of hearing - Neck Neck: Present: normal ROM. Absent: rigidity - Respiratory Respiratory: negative: prolonged expiration, prolonged inspiration - Cardiovascular Rhythm: regular - Gastrointestinal General gastrointestinal: Absent: distended, tenderness - Neurologic Neurologic Comment(s): The patient can be awoken but he gives minimal verbal responses. He responds minimally to verbal commands. There is no facial asymmetry. There is no lateralizing weakness. He responds to light touch in all 4 extremities. - Labs CBC & Chem 7: 06/29/18 04:50 06/29/18 04:50 Labs: Abnormal Lab Results - Last 24 Hours (Table) 06/28/18 06/28/18 06/29/18 Range/Units 17:49 21:46 04:50 WBC 12.3 H (3.8-10.6) k/uL RBC 3.08 L (4.30-5.90) m/uL Hgb 10.1 L (13.0-17.5) gm/dL Hct 32.2 L (39.0-53.0) % MCV 104.4 H (80.0-100.0) fL ABG pCO2 (35-45) mmHg ABG HCO3 (21-25) mmol/L ABG Total CO2 (19-24) mmol/L ABG O2 Saturation (94-97) % Sodium (137-145) mmol/L Chloride (98-107) mmol/L Carbon Dioxide (22-30) mmol/L BUN (9-20) mg/dL Creatinine (0.66-1.25) mg/dL Glucose (74-99) mg/dL POC Glucose (mg/dL) 125 H 138 H (75-99) mg/dL Phosphorus (2.5-4.5) mg/dL Magnesium (1.6-2.3) mg/dL 06/29/18 06/29/18 Range/Units 04:50 10:48 WBC (3.8-10.6) k/uL RBC (4.30-5.90) m/uL Hgb (13.0-17.5) gm/dL Hct (39.0-53.0) % MCV (80.0-100.0) fL ABG pCO2 62 H (35-45) mmHg ABG HCO3 39 H (21-25) mmol/L ABG Total CO2 41 H (19-24) mmol/L ABG O2 Saturation 97.6 H (94-97) % Sodium 149 H (137-145) mmol/L Chloride 110 H (98-107) mmol/L Carbon Dioxide 39 H (22-30) mmol/L BUN 53 H (9-20) mg/dL Creatinine 1.34 H (0.66-1.25) mg/dL Glucose 102 H (74-99) mg/dL POC Glucose (mg/dL) (75-99) mg/dL Phosphorus 4.6 H (2.5-4.5) mg/dL Magnesium 2.5 H (1.6-2.3) mg/dL Microbiology - Last 24 Hours (Table) 06/24/18 07:31 Blood Culture - Preliminary Blood No Growth after 120 hours 06/24/18 07:31 Blood Culture - Preliminary Blood No Growth after 120 hours 06/28/18 15:55 Urine Culture - Preliminary Urine,Catheterized Assessment and Plan (1) Altered mental status Current Visit: Yes Status: Acute Code(s): R41.82 - ALTERED MENTAL STATUS, UNSPECIFIED SNOMED Code(s): 439185105 (2) Atrial fibrillation with RVR Current Visit: Yes Status: Chronic Code(s): I48.91 - UNSPECIFIED ATRIAL FIBRILLATION SNOMED Code(s): 455453721306313 (3) Sepsis Current Visit: Yes Status: Acute Code(s): A41.9 - SEPSIS, UNSPECIFIED ORGANISM SNOMED Code(s): 14058227 (4) Respiratory failure Current Visit: Yes Status: Acute Code(s): J96.90 - RESPIRATORY FAILURE, UNSP , UNSP W HYPOXIA OR HYPERCAPNIA SNOMED Code(s): 470038260 (5) Encephalopathy Current Visit: Yes Status: Acute Code(s): G93.40 - ENCEPHALOPATHY, UNSPECIFIED SNOMED Code(s): 41533827 (6) Dementia Current Visit: Yes Status: Chronic Code(s): F03.90 - UNSPECIFIED DEMENTIA WITHOUT BEHAVIORAL DISTURBANCE SNOMED Code(s): 14376294 (7) Pneumonia Current Visit: Yes Status: Acute Code(s): J18.9 - PNEUMONIA, UNSPECIFIED ORGANISM SNOMED Code(s): 587634371 Plan: This patient has altered mental status due to multifactorial encephalopathy. On top of his baseline dementia this is due to his recent infection and respiratory problems. Stat CT of the brain showed no acute intracranial abnormalities. I did order an EEG. Continue care and treatment in the ICU. Continue neurological checks. We will continue to follow and make recommendations based on the above study. I have performed a history and physical on the above patient. I have reviewed the above note, and agree.
[2018-06-29 18:07] LABS: Glucose,Whole Blood 134 mg/dL (75-99)
[2018-06-29] MEDS: SODIUM CHLORIDE 0.9% 1,000 ML IV SCH (20:40)
[2018-06-29 20:41] LABS: Glucose,Whole Blood 119 mg/dL (75-99)
--- NOTE | 2018-06-29 21:28 | P.PN ---
Subjective Progress Note Date: 06/29/18 Principal diagnosis: Worsening encephalopathy Patient continued to be at baseline mental status where he is confused does not follow commands was some improvement since yesterday but still minimal. Objective - Vital Signs Vital signs: Vital Signs Temp 98.8 F 06/29/18 16:00 Pulse 77 06/29/18 20:43 Resp 9 L 06/29/18 18:00 BP 104/60 06/29/18 18:00 Pulse Ox 100 06/29/18 20:27 Intake & Output 06/29/18 06/29/18 06/30/18 06:59 18:59 06:59 Intake Total 220 197.5 20 Output Total 940 610 45 Balance -720 -412.5 -25 Weight 55.4 kg Intake: IV 220 197.5 20 Piperacillin-Tazobactam 3 37.5 .375 gm In Dextrose/Water 1 50ml.bag @ 12.5 mls/hr IVPB Q8H [facility]A Rx#: [id number] Sodium Chloride 0.9% 1, 220 160 20 000 ml @ 20 mls/hr IV . Q24H [facility]A Rx#:[id number] Output: Urine 940 610 45 Other: Voiding Method Indwelling Catheter Indwelling Catheter - Exam HENT: Atraumatic, external ears normal, nose normal, oropharynx moist, no pharyngeal exudates. Neck- normal range of motion, no tenderness, supple Respiratory: No respiratory distress, normal breath sounds, no rales, no wheezing Cardiovascular: Normal rate, normal rhythm, no murmurs, no gallops, no rubs GI: Soft, nondistended, normal bowel sounds, nontender, no organomegaly, no mass, no rebound, no guarding Psychiatric: Confused does not follow commands - Labs CBC & Chem 7: 06/29/18 04:50 06/29/18 04:50 Labs: Abnormal Lab Results - Last 24 Hours (Table) 06/28/18 06/29/18 06/29/18 Range/Units 21:46 04:50 04:50 WBC 12.3 H (3.8-10.6) k/uL RBC 3.08 L (4.30-5.90) m/uL Hgb 10.1 L (13.0-17.5) gm/dL Hct 32.2 L (39.0-53.0) % MCV 104.4 H (80.0-100.0) fL ABG pCO2 (35-45) mmHg ABG HCO3 (21-25) mmol/L ABG Total CO2 (19-24) mmol/L ABG O2 Saturation (94-97) % Sodium 149 H (137-145) mmol/L Chloride 110 H (98-107) mmol/L Carbon Dioxide 39 H (22-30) mmol/L BUN 53 H (9-20) mg/dL Creatinine 1.34 H (0.66-1.25) mg/dL Glucose 102 H (74-99) mg/dL POC Glucose (mg/dL) 138 H (75-99) mg/dL Phosphorus 4.6 H (2.5-4.5) mg/dL Magnesium 2.5 H (1.6-2.3) mg/dL 06/29/18 06/29/18 06/29/18 Range/Units 10:48 17:53 20:36 WBC (3.8-10.6) k/uL RBC (4.30-5.90) m/uL Hgb (13.0-17.5) gm/dL Hct (39.0-53.0) % MCV (80.0-100.0) fL ABG pCO2 62 H (35-45) mmHg ABG HCO3 39 H (21-25) mmol/L ABG Total CO2 41 H (19-24) mmol/L ABG O2 Saturation 97.6 H (94-97) % Sodium (137-145) mmol/L Chloride (98-107) mmol/L Carbon Dioxide (22-30) mmol/L BUN (9-20) mg/dL Creatinine (0.66-1.25) mg/dL Glucose (74-99) mg/dL POC Glucose (mg/dL) 134 H 119 H (75-99) mg/dL Phosphorus (2.5-4.5) mg/dL Magnesium (1.6-2.3) mg/dL Microbiology - Last 24 Hours (Table) 06/24/18 07:31 Blood Culture - Preliminary Blood No Growth after 120 hours 06/24/18 07:31 Blood Culture - Preliminary Blood No Growth after 120 hours 06/28/18 15:55 Urine Culture - Preliminary Urine,Catheterized Assessment and Plan Assessment: 1. Acute encephalopathy likely metabolic in nature. 2. Bilateral pneumonia. 3. Recent sepsis resolved. 4. Severe debility and deconditioning. 5. Severe protein calorie malnutrition. 6. Anemia. Stat blood gases was performed and showed elevated CO2. Patient is currently following simple commands but still difficult to reorient I would like to apply BiPAP for 4 hours and repeat blood gases. I would like to optimize his medical management and continue supportive care. We'll follow up with neurology recommendation regarding his current condition. Showed patient become unresponsive consideration for intubation to secure airways should be considered. Plan discussed with nursing staff at the bedside Prognosis remained guarded
--- NOTE | 2018-06-29 22:09 | PN ---
PROGRESS NOTE DATE OF SERVICE: 06/29/2018. He was seen again on June2017. He continues to remain confused, but is slightly less confused at this time. He is not tolerating BiPAP. On physical examination, his respiratory rate is 22, pulse rate of 65, temperature 98.8, blood pressure 104/60. HEENT reveals pupils are equal. Chest reveals decreased breath sounds. Faint wheeze only on forced expiration. Cardiovascular system is S1, S2. Abdomen is soft. There is no pedal edema. Labs reveal a white count 12.3, hemoglobin 10.1, sodium 149, potassium 4.4, chloride 110, bicarb 39, BUN 53, creatinine 1.34. ABG showed a pH of 7.41, pCO2 of 62, PO2 of 90, bicarb of 39, O2 saturation of 97.6%. IMPRESSION: At this time is: 1. Aspiration type pneumonia. 2. Chronic obstructive pulmonary disease with acute exacerbation. 3. Dementia. 4. Metabolic encephalopathy. Continue to taper steroids. Continue with antibiotics. Continue supportive care. He is not to be considered for resuscitation. His prognosis at this time is guarded. We will follow him closely during his hospital stay. MMODL / IJN: [id number] /
[2018-06-29 22:22] LABS: Appearance,Urine Cloudy (Clear); Bilirubin,Urine Negative (Negative); Blood,Urine Large (Negative); Color,Urine Yellow; Glucose,Urine (UA) Negative (Negative); Hyaline Casts,Urine 2 /lpf (0-2); Ketones,Urine Negative (Negative); Leukocyte Esterase,Urine Negative (Negative); Mucus,Urine Rare /hpf; Nitrite,Urine Negative (Negative); Protein,Urine Trace (Negative); RBC,Urine >182 /hpf (0-5); Specific Gravity,Urine 1.019 (1.001-1.035); Urobilinogen,Urine <2.0 mg/dL (<2.0); WBC,Urine 33 /hpf (0-5)
[2018-06-30 05:06] LABS: HCT 31.6 % (39.0-53.0); HGB 9.8 gm/dL (13.0-17.5); Hypochromasia Slight; MCH 32.3 pg (25.0-35.0); MCHC 31.2 g/dL (31.0-37.0); MCV 103.5 fL (80.0-100.0); Macrocytosis Slight; Mean Platelet Volume 8.2; Platelet Count 163 k/uL (150-450); RBC 3.05 m/uL (4.30-5.90); RDW 12.6 % (11.5-15.5); WBC 8.8 k/uL (3.8-10.6)
[2018-06-30] MEDS: PIPERACILLIN-TAZOBACTAM 3.375 GM in DEXTROSE/WATER 1 50ML.BAG IVPB SCH ×3 (05:19→20:41)
[2018-06-30 05:42] LABS: Calcium 9.4 mg/dL (8.4-10.2); Magnesium 2.6 mg/dL (1.6-2.3); Phosphorus 3.5 mg/dL (2.5-4.5); Potassium 3.7 mmol/L (3.5-5.1)
[2018-06-30] MEDS: SODIUM CHLORIDE 0.9% 1,000 ML IV SCH (06:52)
[2018-06-30] MEDS: POTASSIUM CHLORIDE 10 MEQ in WATER FOR INJECTION 1 100ML.BAG IVPB SCH ×2 (06:52→09:08)
[2018-06-30 07:34] LABS: Glucose,Whole Blood 123 mg/dL (75-99)
--- NOTE | 2018-06-30 07:35 | P.PN ---
Subjective Progress Note Date: 06/30/18 Principal diagnosis: Paroxysmal atrial fibrillation The patient is an 83-year-old gentleman who was transferred from [facility] to [facility] after he was diagnosed with bilateral pneumonia at [facility]. Currently the patient is on BiPAP and he is confused and poor historian and the history was taken mainly from the chart as well as from the nurse taking care of the patient. The patient does have an extensive past medical history consistent off advanced chronic obstructive pulmonary disease as well as chronic respiratory failure and he resides at an extended care facility. Beside that he does have underlying dementia, coronary artery disease, hypertension, and dyslipidemia. On follow-up with the patient today, June 302017, he is doing better. He remained in normal sinus mechanism. The heart rate is a slightly better after I did decrease the dose of amiodarone. The blood pressure seems to be under good control. The patient has been having diarrhea last night. Objective - Vital Signs Vital signs: Vital Signs Temp 97.6 F 06/30/18 04:00 Pulse 66 06/30/18 04:00 Resp 11 L 06/30/18 04:00 BP 127/60 06/30/18 04:00 Pulse Ox 93 L 06/30/18 04:00 Intake & Output 06/29/18 06/30/18 06/30/18 18:59 06:59 18:59 Intake Total 197.5 190 20 Output Total 610 355 30 Balance -412.5 -165 -10 Weight 55.2 kg Intake: IV 197.5 190 20 Piperacillin-Tazobactam 3 37.5 50 .375 gm In Dextrose/Water 1 50ml.bag @ 12.5 mls/hr IVPB Q8H [facility]A Rx#: [id number] Sodium Chloride 0.9% 1, 160 140 20 000 ml @ 20 mls/hr IV . Q24H [id number] Rx#:[id number] Output: Urine 610 355 30 Other: Voiding Method Indwelling Catheter Indwelling Catheter # Bowel Movements 2 1 - Constitutional General appearance: Present: no acute distress - Respiratory Respiratory: bilateral: diminished - Cardiovascular Rhythm: regular Heart sounds: normal: S1, S2 - Labs CBC & Chem 7: 06/30/18 04:44 06/30/18 04:44 Labs: Abnormal Lab Results - Last 24 Hours (Table) 06/29/18 06/29/18 06/29/18 Range/Units 10:48 17:53 20:10 RBC (4.30-5.90) m/uL Hgb (13.0-17.5) gm/dL Hct (39.0-53.0) % MCV (80.0-100.0) fL ABG pCO2 62 H (35-45) mmHg ABG HCO3 39 H (21-25) mmol/L ABG Total CO2 41 H (19-24) mmol/L ABG O2 Saturation 97.6 H (94-97) % Sodium (137-145) mmol/L Chloride (98-107) mmol/L Carbon Dioxide (22-30) mmol/L BUN (9-20) mg/dL Glucose (74-99) mg/dL POC Glucose (mg/dL) 134 H (75-99) mg/dL Magnesium (1.6-2.3) mg/dL Urine Protein Trace H (Negative) Urine Blood Large H (Negative) Urine RBC >182 H (0-5) /hpf Urine WBC 33 H (0-5) /hpf Urine Mucus Rare H (None) /hpf 06/29/18 06/30/18 06/30/18 Range/Units 20:36 04:44 04:44 RBC 3.05 L (4.30-5.90) m/uL Hgb 9.8 L (13.0-17.5) gm/dL Hct 31.6 L (39.0-53.0) % MCV 103.5 H (80.0-100.0) fL ABG pCO2 (35-45) mmHg ABG HCO3 (21-25) mmol/L ABG Total CO2 (19-24) mmol/L ABG O2 Saturation (94-97) % Sodium 150 H (137-145) mmol/L Chloride 112 H (98-107) mmol/L Carbon Dioxide 39 H (22-30) mmol/L BUN 53 H (9-20) mg/dL Glucose 115 H (74-99) mg/dL POC Glucose (mg/dL) 119 H (75-99) mg/dL Magnesium 2.6 H (1.6-2.3) mg/dL Urine Protein (Negative) Urine Blood (Negative) Urine RBC (0-5) /hpf Urine WBC (0-5) /hpf Urine Mucus (None) /hpf Microbiology - Last 24 Hours (Table) 06/28/18 15:55 Urine Culture - Final Urine,Catheterized 06/24/18 07:31 Blood Culture - Preliminary Blood No Growth after 120 hours 06/24/18 07:31 Blood Culture - Preliminary Blood No Growth after 120 hours Assessment and Plan Assessment: Assessment #1 acute hypoxic respiratory failure #2 COPD exacerbation #3 bilateral pneumonia #4 known advanced COPD #5 known chronic respiratory failure #6 paroxysmal atrial fibrillation #7 coronary artery disease "by history" #8 hypertension #9 dyslipidemia #10 underlying dementia Plan #1 continue the current medical regimen including the current dose of amiodarone by mouth which is 200 mg by mouth twice a day #2 continue holding anticoagulation. The patient is at high risk of falling and bleeding #3 the blood pressure has been marginally low but the systolic blood pressure is above 100 mmHg. #4 the echo was reviewed and revealed normal LV function Thank you for allowing us participate in his care and will follow-up with the patient on when necessary case.
[2018-06-30] MEDS: BUDESONIDE 0.5 MG/2 ML NEBU INHALATION SCH ×2 (08:12→19:57)
[2018-06-30] MEDS: IPRATROPIUM-ALBUTEROL 3 ML NEB INHALATION SCH ×4 (08:12→19:57)
[2018-06-30] MEDS: ASPIRIN 325 MG TAB PO SCH (09:09)
[2018-06-30] MEDS: PANTOPRAZOLE 40 MG TABLET PO SCH (09:09)
[2018-06-30] MEDS: AMIODARONE 200 MG TAB PO SCH ×2 (09:09→20:46)
[2018-06-30] MEDS: methylPREDNISolone 4 MG TAB TAPER PO SCH (09:29)
[2018-06-30] MEDS: INSULIN ASPART 100 UNIT/ML 1 ML 10 ML VIAL SQ SCH ×4 (09:30→20:46)
--- NOTE | 2018-06-30 11:05 | CDI ---
Last Revision, August 2017 Documentation Clarification Form Date: 06/30/2018 10:59:14 AM From: Nargis Moreno RN, CCDS Admit Date: 06/24/2018 5:08:00 AM Patient Name: Jacob Thomas Visit Number: [id number] ATTENTION: The Clinical Documentation Specialists (CDI) and [facility] Coding Staff appreciate your assistance in clarifying documentation. Please respond to the clarification below the line at the bottom and electronically sign. The CDI & [facility] Coding staff will review the response and follow-up if needed. Please note: Queries are made part of the Legal Health Record. If you have any questions, please contact the author of this message via ITS. Jordan Cortez MD A diagnosis of anemia lacks specificity to accurately reflect your patients severity of condition and clarification is needed. History/Risk Factors: acute hypoxic respiratory failure, severe asthma with exacerbation, aspiration pneumonia, sepsis w/ septic shock, paroxysmal atrial fib Clinical indicators: Hemoglobin: 10.2/9.2/9.1/9.4/10.3 Hematocrit: 28.7/29.8/32.7/32.2/31.6 Treatment: Labs AM daily Eliquis 2.5 mg PO BID In order to capture the severity of condition, please clarify the type of anemia and etiology if known: Acute blood loss anemia Acute on chronic blood loss anemia Chronic blood loss anemia Iron deficiency anemia Drug induced anemia Anemia due to malignancy Nutritional anemia Anemia of chronic disease Unable to determine Other, please specify Please continue to document in your progress notes and discharge summary in order to capture severity of illness and risk of mortality. Include clinical findings that support your diagnosis. ___Chronic blood loss anemia MTDD
--- NOTE | 2018-06-30 11:15 | CDI ---
Last Revision, August 2017 Documentation Clarification Form Date: 06/30/2018 11:06:45 AM From: Nargis Moreno RN, CCDS Admit Date: 06/24/2018 5:08:00 AM Patient Name: Jcaob Thomas Visit Number: [id number] ATTENTION: The Clinical Documentation Specialists (CDI) and [facility] Coding Staff appreciate your assistance in clarifying documentation. Please respond to the clarification below the line at the bottom and electronically sign. The CDI & [facility] Coding staff will review the response and follow-up if needed. Please note: Queries are made part of the Legal Health Record. If you have any questions, please contact the author of this message via ITS. Jordan Cortez MD History/Risk Factors: Heart failure, COPD, HTN, CKD. Clinical Indicators: 06/26 Pulmonary Progress Note: "Right Heart failure" VS/Pulse OX: Temp 98.5, HR 78, RR 20, B/P 90/47, spo2 95% 6l NC BNP: not checked 06/24/18 Echocardiogram Results: "mild concentric LVH, EF 50-55%, RV mildly enlarged, mild pulmonary HTN, EF 50-55% 06/28 Chest x ray: "WORSENING BIBASILAR AIRSPACE DISEASE. 2. SMALL, BILATERAL EFFUSIONS. 3. COPD. 4. EVIDENCE OF OLD GRANULOMATOUS DISEASE. Treatment: Amio IV followed by 200 mg PO BID Lasix 40 mg IVP x1 In your professional opinion, can you please clarify the acuity and type of CHF if known? Systolic Heart Failure: Acute Chronic Acute on Chronic Diastolic Heart Failure: Acute Chronic Acute on Chronic Systolic & Diastolic Heart Failure: Acute Chronic Acute on Chronic Heart Failure Unable to Determine Other, please specify Please continue to document in your progress notes and discharge summary in order to capture severity of illness and risk of mortality. Include clinical findings that support your diagnosis. __Acute on chronic diastolic heart failure MTDD
[2018-06-30 12:37] LABS: Glucose,Whole Blood 162 mg/dL (75-99)
[2018-06-30] MEDS ORDERED: DEXTROSE 5% IN WATER 1,000 ML IV ONE (14:28)
--- NOTE | 2018-06-30 14:53 | P.PN ---
Subjective Progress Note Date: 06/30/18 Principal diagnosis: Altered mental status This is an 83-year-old male continuing to be evaluated by the neurology service in the [facility] ICU. Recall he is been treated for bilateral pneumonia and acute hypoxic respiratory failure. He is no longer on a ventilator. His mental status continues to wax and wane. His mental status has much improved since my exam yesterday. Recall that a stat CT of the brain done yesterday showed no acute intracranial abnormalities. I have ordered an EEG and it was performed this morning. It's time my exam he is resting comfortably in his ICU bed. He is watching TV and flipping through channels. He asks specifically to see the [employer] network. Objective - Vital Signs Vital signs: Vital Signs Temp 98.1 F 06/30/18 12:00 Pulse 77 06/30/18 12:16 Resp 19 06/30/18 12:00 BP 101/59 06/30/18 12:00 Pulse Ox 100 06/30/18 12:00 Intake & Output 06/29/18 06/30/18 06/30/18 18:59 06:59 18:59 Intake Total 197.5 190 210 Output Total 610 355 285 Balance -412.5 -165 -75 Weight 55.2 kg Intake: IV 197.5 190 210 Piperacillin-Tazobactam 3 37.5 50 50 .375 gm In Dextrose/Water 1 50ml.bag @ 12.5 mls/hr IVPB Q8H RITIKA Rx#: [id number] Sodium Chloride 0.9% 1, 160 140 160 000 ml @ 20 mls/hr IV . Q24H RITIKA Rx#:[id number] Output: Urine 610 355 285 Other: Voiding Method Indwelling Catheter Indwelling Catheter Indwelling Catheter # Bowel Movements 2 1 - Constitutional General appearance: Present: cooperative, no acute distress, thin - EENT Eyes: Present: EOMI, PERRLA. Absent: abnormal pupil, ptosis ENT: Present: hard of hearing - Neck Neck: Present: normal ROM. Absent: rigidity - Respiratory Respiratory: negative: prolonged expiration, prolonged inspiration - Cardiovascular Rhythm: regular - Gastrointestinal General gastrointestinal: Absent: distended, tenderness - Neurologic Neurologic Comment(s): He has awake and oriented to person and partially to place. Speech is a little dysarthric as he does not have his dentures in. Language seems pretty normal. There is no facial asymmetry. No tremors or seizure-like activities are seen. Strength is full in bilateral upper and lower extremities. There is no sensory deficit. There is no facial asymmetry. - Labs CBC & Chem 7: 06/30/18 04:44 06/30/18 04:44 Labs: Abnormal Lab Results - Last 24 Hours (Table) 06/29/18 06/29/18 06/29/18 Range/Units 17:53 20:10 20:36 RBC (4.30-5.90) m/uL Hgb (13.0-17.5) gm/dL Hct (39.0-53.0) % MCV (80.0-100.0) fL Sodium (137-145) mmol/L Chloride (98-107) mmol/L Carbon Dioxide (22-30) mmol/L BUN (9-20) mg/dL Glucose (74-99) mg/dL POC Glucose (mg/dL) 134 H 119 H (75-99) mg/dL Magnesium (1.6-2.3) mg/dL Urine Protein Trace H (Negative) Urine Blood Large H (Negative) Urine RBC >182 H (0-5) /hpf Urine WBC 33 H (0-5) /hpf Urine Mucus Rare H (None) /hpf 06/30/18 06/30/18 06/30/18 Range/Units 04:44 04:44 07:20 RBC 3.05 L (4.30-5.90) m/uL Hgb 9.8 L (13.0-17.5) gm/dL Hct 31.6 L (39.0-53.0) % MCV 103.5 H (80.0-100.0) fL Sodium 150 H (137-145) mmol/L Chloride 112 H (98-107) mmol/L Carbon Dioxide 39 H (22-30) mmol/L BUN 53 H (9-20) mg/dL Glucose 115 H (74-99) mg/dL POC Glucose (mg/dL) 123 H (75-99) mg/dL Magnesium 2.6 H (1.6-2.3) mg/dL Urine Protein (Negative) Urine Blood (Negative) Urine RBC (0-5) /hpf Urine WBC (0-5) /hpf Urine Mucus (None) /hpf 06/30/18 Range/Units 12:11 RBC (4.30-5.90) m/uL Hgb (13.0-17.5) gm/dL Hct (39.0-53.0) % MCV (80.0-100.0) fL Sodium (137-145) mmol/L Chloride (98-107) mmol/L Carbon Dioxide (22-30) mmol/L BUN (9-20) mg/dL Glucose (74-99) mg/dL POC Glucose (mg/dL) 162 H (75-99) mg/dL Magnesium (1.6-2.3) mg/dL Urine Protein (Negative) Urine Blood (Negative) Urine RBC (0-5) /hpf Urine WBC (0-5) /hpf Urine Mucus (None) /hpf Microbiology - Last 24 Hours (Table) 06/29/18 20:10 Urine Culture - Preliminary Urine,Catheterized 06/24/18 07:31 Blood Culture - Final Blood No Growth after 144 hours 06/24/18 07:31 Blood Culture - Final Blood No Growth after 144 hours 06/28/18 15:55 Urine Culture - Final Urine,Catheterized Assessment and Plan (1) Altered mental status Current Visit: Yes Status: Acute Code(s): R41.82 - ALTERED MENTAL STATUS, UNSPECIFIED SNOMED Code(s): 225232295 (2) Atrial fibrillation with RVR Current Visit: Yes Status: Chronic Code(s): I48.91 - UNSPECIFIED ATRIAL FIBRILLATION SNOMED Code(s): 899743629591572 (3) Sepsis Current Visit: Yes Status: Acute Code(s): A41.9 - SEPSIS, UNSPECIFIED ORGANISM SNOMED Code(s): 03244377 (4) Respiratory failure Current Visit: Yes Status: Acute Code(s): J96.90 - RESPIRATORY FAILURE, UNSP , UNSP W HYPOXIA OR HYPERCAPNIA SNOMED Code(s): 390574633 (5) Encephalopathy Current Visit: Yes Status: Acute Code(s): G93.40 - ENCEPHALOPATHY, UNSPECIFIED SNOMED Code(s): 86170847 (6) Dementia Current Visit: Yes Status: Chronic Code(s): F03.90 - UNSPECIFIED DEMENTIA WITHOUT BEHAVIORAL DISTURBANCE SNOMED Code(s): 91752030 (7) Pneumonia Current Visit: Yes Status: Acute Code(s): J18.9 - PNEUMONIA, UNSPECIFIED ORGANISM SNOMED Code(s): 695002736 Plan: This patient has altered mental status due to multifactorial encephalopathy. On top of his baseline dementia this is due to his recent infection and respiratory problems. He is much better today. Stat CT of the brain showed no acute intracranial abnormalities. An EEG was performed today. Continue care and treatment in the ICU. Continue neurological checks. We will continue to follow and make recommendations based on the above study. I have performed a history and physical on the above patient. I have reviewed the above note, and agree.
--- NOTE | 2018-06-30 15:07 | PN ---
PROGRESS NOTE DATE OF SERVICE: 06/30/2018 INTERVAL HISTORY: Patient is an 83-year-old male who is seen sitting up in bed, is awake and alert. Patient appears less confused today. He is oriented to self and year and place. At this time, patient is afebrile, hemodynamically stable, in no acute distress. PHYSICAL EXAM: Vital signs, temp is 98.6, heart rate is 77, respiratory rate is 19, blood pressure is 101/69, O2 SAT is 95% on 4 L O2 via nasal cannula. HEENT: Head is normocephalic, atraumatic. Neck is supple. Trachea is midline. Lungs with decreased breath sounds. No clear rales or wheezes. HEART: S1, S2 are heard. Not tachycardic. ABDOMEN: Soft. Bowel sounds are heard. EXTREMITIES: With no edema. NEUROLOGIC: Patient is awake and alert. LABS: White count is 8.8, hemoglobin is 9.8, hematocrit 31.6 with 163,000 platelets, sodium is 150, potassium is 3.7, chloride is 112, CO2 is 39, anion gap is negative for 1. BUN is 53, creatinine is 1.21, glucose is 115, calcium is 9.4, phosphorus is 3.5, magnesium is 2.6. No new imaging to review. IMPRESSION: 1. Aspiration pneumonia. 2. Chronic obstructive pulmonary disease with acute exacerbation. 3. Possible dementia. 4. Metabolic encephalopathy. PLAN: Continue current medications which have been reviewed. Continue to taper steroids. Continue antibiotics. Continue with GI and DVT prophylaxis and we will follow patient closely making further changes as necessary. MMODL / IJN: [id number] /
--- NOTE | 2018-06-30 16:33 | P.PN ---
Subjective Progress Note Date: 06/30/18 This is an 83-year old male with a past medical history of CHF, COPD, chronic kidney disease stage III, and chronic respiratory failure. The patient presented to [facility] with respiratory distress, from there he was transferred to [facility]. He is found to have bilateral pneumonia. Patient is quite confused and a very poor historian. While in the emergency department did go into A.fib with RVR and did have significant hypotension. He required a central line and vasopressors were started at 10mcg/min. His chest xray revealed COPD as well as bilateral pneumonia. ABG showed a PH of 7.3, pCO2 58, pO2 68, HCO3 of 30, consistent with hypercapnia, hypoxia and respiratory acidosis. He was started on Cardizem IV, he did converted to normal sinus rhythm , Cardizem was discontinued and he was started on Amiodarone and a heparin infusion. Blood and sputum cultures were obtained, he was started on Levofloxacin, Zosyn, and Vancomycin and transferred to the ICU unit. 06/25: Patient remains in the intensive care unit and has been hemodynamically stable. Blood pressure is on the low side. He is in a sinus rhythm. IV amiodarone has been discontinued and started oral by Dr. Marti. Patient remains on heparin drip. Patient is also followed by pulmonary medicine. He has been off norepinephrine since [address] Carver has cleared him for transfer out of the intensive care unit. He is currently on Levaquin, Zosyn and vancomycin. Dr. Bedoya is on consult. Solu-Medrol is at 40 mg every 12 hours. Patient is very concerned that he does not have his hearing aids or dentures. CODE STATUS has been clarified with daughter and son which is DO NOT RESUSCITATE. Patient continues to have mild confusion. 06/26: Patient remains in the intensive care unit waiting for bed. Patient states he has intermittent episodes of trouble breathing and is bringing up sputum. Sputum cultures in progress. He does complain of dry mouth but is on humidified oxygen. His heart rate has been running in the 50s and 60s with blood pressure on the lower side for which amiodarone was decreased to 200 mg twice daily by Dr. boston. He has been afebrile. Patient continues to have mild confusion. 06/27: Patient remains in the intensive care unit waiting for a medical bed. He has been seen by Dr. Hernandez and most likely patient will be returning to his [facility] where he came from. Patient had repeat chest x-ray that shows increased aeration. Patient was determined to not be anticoagulation candidate as he is high risk for fall. He has been started on aspirin. He remains in sinus rhythm and continued on oral amiodarone. Echocardiogram reveals EF 50-55% with mild concentric left ventricular hypertrophy, mild mitral and tricuspid regurgitation, mild pulmonary hypertension. Patient walked a couple steps with physical therapy. Patient is somewhat more confused from yesterday. Berry catheter remains in place draining clear urine, adequate amounts. 06/28: Patient has been declining steadily with mental status as currently he is alert and oriented only 0 patient is not following commands mumbling some warts but does not follow commands and difficult to reorient. Plan discussed with nursing staff at the bedside and family members as well and patient will have CT scan done to rule out any intracranial process we will optimize medical management and consider swallow evaluation upon return from CT scan. Patient with guarded prognosis 06/29:Patient has been declining steadily with mental status as currently he is alert and oriented only 0 patient is not following commands mumbling some warts but does not follow commands and difficult to reorient.Plan discussed with nursing staff at the bedside and family members as well and patient will have CT scan done to rule out any intracranial process we will optimize medical management and consider swallow evaluation upon return from CT scan. Patient with guarded prognosis 06/30:Patient continued to be at baseline mental status where he is confused does not follow commands was some improvement since yesterday but still minimal. Stat blood gases was performed and showed elevated CO2. Patient is currently following simple commands but still difficult to reorient I would like to apply BiPAP for 4 hours and repeat blood gases. I would like to optimize his medical management and continue supportive care. We'll follow up with neurology recommendation regarding his current condition. Showed patient become unresponsive consideration for intubation to secure airways should be considered. Plan discussed with nursing staff at the bedside Prognosis remained guarded 07/01: Patient is currently on 4 L nasal cannula and pulse oxing 95%. Stool for C. diff was negative. Patient apparently was disimpacted and following that had loose stools but not true diarrhea. Noted sodium is up 250 with chloride of 112, CO2 39. BUN 53 and creatinine 1.21. Hemoglobin is 9.8. Capillary blood glucose running between 119 162. Magnesium was 2.6. Patient remains [facility] bed [facility] floor. Patient continues to have confusion. CAT scan of the brain showed no acute intracranial abnormalities. EEG report is pending. Anticipate possible discharge tomorrow back to his ECF. Review Of Systems: Constitutional: No fever, no chills, no night sweats. EENT: No headache. + loss of Hearing. No epistaxis. No sore throat. Lungs: + shortness of breath, cough, no sputum production. Cardiovascular: No chest pain, no lower extremity edema. No orthopnea. No lightheadedness or dizziness. No syncopal episodes. Abdominal: No abdominal pain. No nausea, vomiting. No diarrhea. No constipation. No bloody or tarry stools. Genitourinary: No dysuria, increased frequency, urgency. No urinary retention. Musculoskeletal: No myalgias. + muscle weakness. Integumentary: Skin tears bilat arms. No rash or pruritus. No unusual bruising. No change in hair or nails. Psychiatric: No depression. + anxiety secondary to confusion. Neuro: Mild confusion. Objective - Vital Signs Vital signs: Vital Signs Temp 98.6 F 06/30/18 08:00 Pulse 77 06/30/18 12:16 Resp 19 06/30/18 08:00 BP 101/69 06/30/18 08:00 Pulse Ox 95 06/30/18 08:14 Intake & Output 06/29/18 06/30/18 06/30/18 18:59 06:59 18:59 Intake Total 197.5 190 80 Output Total 610 355 140 Balance -412.5 -165 -60 Weight 55.2 kg Intake: IV 197.5 190 80 Piperacillin-Tazobactam 3 37.5 50 .375 gm In Dextrose/Water 1 50ml.bag @ 12.5 mls/hr IVPB Q8H RITIKA Rx#: [id number] Sodium Chloride 0.9% 1, 160 140 80 000 ml @ 20 mls/hr IV . Q24H RITIKA Rx#:[id number] Output: Urine 610 355 140 Other: Voiding Method Indwelling Catheter Indwelling Catheter Indwelling Catheter # Bowel Movements 2 1 - Exam General appearance: cooperative, disheveled, no distress - EENT Eyes: EOMI, PERRLA ENT: hard of hearing, normal oropharynx, edentulous Ears: bilateral: normal - Neck Neck: normal ROM Carotids: bilateral: upstroke normal - Respiratory Respiratory: bilateral: diminished, dullness, rales, rhonchi, wheezing, prolonged expiration - Cardiovascular Distant heart sounds Rhythm: regular Heart sounds: normal: S1, S2 - Gastrointestinal General gastrointestinal: no distended, no hepatomegaly, normal bowel sounds, no organomegaly, soft, no splenomegaly, no tenderness, Berry in place with clear reshma return - Neurologic Neurologic: CNII-XII intact - Musculoskeletal Musculoskeletal: generalized weakness, strength equal bilaterally - Psychiatric Mildly confused, oriented to person, place. cooperative - Labs CBC & Chem 7: 06/30/18 04:44 06/30/18 04:44 Labs: Abnormal Lab Results - Last 24 Hours (Table) 06/29/18 06/29/18 06/29/18 Range/Units 17:53 20:10 20:36 RBC (4.30-5.90) m/uL Hgb (13.0-17.5) gm/dL Hct (39.0-53.0) % MCV (80.0-100.0) fL Sodium (137-145) mmol/L Chloride (98-107) mmol/L Carbon Dioxide (22-30) mmol/L BUN (9-20) mg/dL Glucose (74-99) mg/dL POC Glucose (mg/dL) 134 H 119 H (75-99) mg/dL Magnesium (1.6-2.3) mg/dL Urine Protein Trace H (Negative) Urine Blood Large H (Negative) Urine RBC >182 H (0-5) /hpf Urine WBC 33 H (0-5) /hpf Urine Mucus Rare H (None) /hpf 06/30/18 06/30/18 06/30/18 Range/Units 04:44 04:44 07:20 RBC 3.05 L (4.30-5.90) m/uL Hgb 9.8 L (13.0-17.5) gm/dL Hct 31.6 L (39.0-53.0) % MCV 103.5 H (80.0-100.0) fL Sodium 150 H (137-145) mmol/L Chloride 112 H (98-107) mmol/L Carbon Dioxide 39 H (22-30) mmol/L BUN 53 H (9-20) mg/dL Glucose 115 H (74-99) mg/dL POC Glucose (mg/dL) 123 H (75-99) mg/dL Magnesium 2.6 H (1.6-2.3) mg/dL Urine Protein (Negative) Urine Blood (Negative) Urine RBC (0-5) /hpf Urine WBC (0-5) /hpf Urine Mucus (None) /hpf 06/30/18 Range/Units 12:11 RBC (4.30-5.90) m/uL Hgb (13.0-17.5) gm/dL Hct (39.0-53.0) % MCV (80.0-100.0) fL Sodium (137-145) mmol/L Chloride (98-107) mmol/L Carbon Dioxide (22-30) mmol/L BUN (9-20) mg/dL Glucose (74-99) mg/dL POC Glucose (mg/dL) 162 H (75-99) mg/dL Magnesium (1.6-2.3) mg/dL Urine Protein (Negative) Urine Blood (Negative) Urine RBC (0-5) /hpf Urine WBC (0-5) /hpf Urine Mucus (None) /hpf Microbiology - Last 24 Hours (Table) 06/29/18 20:10 Urine Culture - Preliminary Urine,Catheterized 06/24/18 07:31 Blood Culture - Final Blood No Growth after 144 hours 06/24/18 07:31 Blood Culture - Final Blood No Growth after 144 hours 06/28/18 15:55 Urine Culture - Final Urine,Catheterized Assessment and Plan Plan: 1. Acute hypercapnic hypoxic respiratory failure on chronic respiratory failure secondary to COPD and bilateral pneumonia. Continue nebulizers Q4 hours with Pulmicort BID, Solumedol changed to Medrol Dosepak. Continue Zosyn, Vancomycin, and Levofloxacin. Patient is currently on nasal cannula. Consults with pulmonary medicine, infectious disease appreciated 2. Septic shock secondary to gram-negative pneumonia. Infectious disease consulted, continue Zosyn. Blood and sputum cultures ordered. Off Norepinephrine. 3. Acute COPD exacerbation. Continue antibiotics, nebulizers, pulmicort, Medrol Dosepak and continue with supplemental oxygen 4. A.Fib with RVR with paroxysmal atrial fibrillation currently in sinus rhythm. Amiodarone drip changed to oral and decreased to 200 mg twice daily. No anticoagulation due to risk for bleeding/falls. Heparin drip was discontinued. Cardiology consult appreciated. 5. Cachexia with severe protein calorie malnutrition with BMI of 19. Ensure oral supplement ordered. 6. Hypertension. Currently hypotensive, zestril and metoprolol held 7. Hyperlipidemia. May continue on Atorvastatin 40mg daily 8. DVT prophylaxis. 9. GI prophylaxis. Protonix 40mg daily Discharge plan: Return to [facility] in the next 24 hours. Impression and plan of care have been directed as dictated by the signing physician. Roxanna Gan nurse practitioner acting as scribe for signing physician.
[2018-06-30 17:11] LABS: Glucose,Whole Blood 166 mg/dL (75-99)
--- NOTE | 2018-06-30 17:34 | EEG ---
ELECTROENCEPHALOGRAM REPORT DATE OF SERVICE: 06/30/2018. REASON FOR TESTING: Altered mental status. DESCRIPTION OF THE PROCEDURE: This EEG was performed using a 21 channel digital electroencephalograph, following international 10-20 system. DESCRIPTION OF THE RECORDING: From the beginning of the tracing, with patient's eyes closed, the background rhythm was mostly consisting of 7 Hz theta frequency in the posterior occipital leads. No obvious asymmetry is seen. Occasional muscle and movement artifacts are seen. Photic stimulation and hyperventilation were not performed. The patient remains awake throughout the tracing. No epileptiform discharges were seen. INTERPRETATION: This awake EEG is abnormal due to presence of generalized slowing of the background rhythm, mostly in the theta range. This is consistent with mild encephalopathy. No epileptiform discharges were seen. The absence of epileptiform discharges does not rule out the diagnosis of epilepsy; therefore clinical correlation is recommended. MMMJ / OK: [id number] /
--- NOTE | 2018-06-30 19:25 | P.PN ---
Subjective Progress Note Date: 06/29/18 (Late entry note) Principal diagnosis: Bilateral pneumonia, acute hypoxic respiratory failure, atrial fibrillation with rapid ventricular response, generalized weakness and medical debility, severe sepsis and septic shock related to bilateral pneumonia 06/29/2018, patient seen eval examined during the rounds clinically patient has been doing slightly better respiratory status improved FiO2 is gradually being titrated down currently ranging between 3 and 4 L, saturation is 93%, labs reviewed medications reviewed patient underwent arterial blood gas revealed hypercapnic hypoxic respiratory failure with a stable pH patient has chronic CO2 retention, mental status slightly better now compared to the time of arrival 06/28/2018, patient seen eval reexamined ICU, clinically has been doing fairly well patient is off of anticoagulation he is back in sinus rhythm hemodynamic status stable his labs reviewed medications reviewed, chest x-ray reviewed as well by basilar atelectasis infiltrates are seen slight progression cannot be excluded which likely related to effusion Ammann patient has been on IV fluids KVO him a white cell count is up likely related to steroids, renal functions continued to improve, patient will benefit from IV furosemide we'll give a single dose 06/27/2018, patient seen eval examined during the rounds clinically patient has been doing much better he is on 4 L oxygen sitting upright on the chair he has a chronic retention Foleys which is to be capped he is being evaluated for physical therapy and rehab hemodynamic status remains stable labs reviewed medications reviewed, kidney functions continued to improve, sputum studies failed to reveal any significant finding some dalia was noted, urine and blood cultures have been no growth so far, chest x-ray performed earlier today continue show improvement in infiltrate 06/26/2018, patient seen eval examined during the rounds clinically patient has been doing well he is more awake and alert sitting upright in the bed he is on supplemental oxygen breathing comfortably, he is a slightly bradycardic heart rate ranges from mid 50s to mid 60s blood pressure has been stable, FiO2 slowly being titrated down to 4 L from 5 L home of his urine and sputum and blood culture so far has been negative, chest x-ray performed today reviewed and compared with the prior x-ray stable infiltrate around with baseline COPD a trace effusion cannot be excluded, patient is currently monitoring in ICU for placement in a medical bed on telemetry 06/25/2018, patient seen eval reexamined during the rounds today he remains on supplemental oxygen LK more awake and alert is breathing more comfortably, he remains on supplemental oxygen with 5 L his mental status is improved he is status post echocardiogram results and reports are reviewed patient has a fairly well ejection fraction of 50% however some component of pulmonary hypertension as noted likely multifactorial patient is now off of vasopressors he is tolerating by mouth relatively well he is being changed from IV amiodarone to oral cardiovascular services following blood gases not performed today we'll do a blood gas prior to transfer out of the ICU, labs reviewed medications reviewed radiographic studies reviewed as well critical care time spent 35 minutes 83-year-old male who is a resident of [facility] admitted a large has baseline problems associated with chronic hypoxic respiratory failure end- stage lung disease and severe COPD emphysema patient was noted to be more short of breath and has a confusion and altered mental status and was eventually transferred to [facility] emergency department where he was seen eval reexamined subsequently transferred to the emergency department at [facility] on arrival he was hypotensive treated require crystalloid challenge followed by a vasopressors a central line has been placed by the emergency room physician patient is being placed on the 10 mics of levo fed his blood pressure is now 90/ 60 patient's saturation is 98% on 6 L oxygen, he is awake but the does not give any detailed history he has obvious short leg shortness of breath I reviewed his arterial blood gas performed stat basis he has component of hypercapnia and respiratory acidosis, his chest x-ray revealed COPD-like process of bilateral consolidation along with pleural effusion, pleural effusion appears to be small consolidation is mostly on the basal area central line in his left internal jugular, patient had an episode of A. fib with rapid ventricular response however responded with Cardizem drip and is back to sinus rhythm Objective - Vital Signs Vital signs: Blood pressure is 104/60, respiratory rate is 10 heart rate 77 temperature 90.8 saturation 100% - Exam - Constitutional General appearance: cooperative, disheveled, mild distress more awake and alert - EENT Eyes: EOMI, PERRLA, poor dentition, normal appearance ENT: hard of hearing, normal oropharynx Ears: bilateral: normal - Neck Neck: normal ROM Carotids: bilateral: upstroke normal Thyroid: bilateral: normal size - Respiratory Respiratory: bilateral: diminished, dullness (Bilateral basis less than one fourth of the lung), rales (Crackles at the bases), rhonchi (Expiratory), wheezing (Bilateral expiratory), prolonged expiration, negative: prolonged inspiration, other, overall improved exam compared to yesterday, however more crackles are present the bases compared to prior exam - Cardiovascular Rhythm: regular Heart sounds: normal: S1, S2 - Gastrointestinal General gastrointestinal: soft - Neurologic Neurologic: CNII-XII intact - Musculoskeletal Musculoskeletal: generalized weakness, strength equal bilaterally - Psychiatric Psychiatric: A&O x's 3 Very slow to respon - Labs CBC & Chem 7: 06/30/18 04:44 06/30/18 04:44 Labs: Abnormal Lab Results - Last 24 Hours (Table) 06/29/18 06/29/18 06/30/18 Range/Units 20:10 20:36 04:44 RBC 3.05 L (4.30-5.90) m/uL Hgb 9.8 L (13.0-17.5) gm/dL Hct 31.6 L (39.0-53.0) % MCV 103.5 H (80.0-100.0) fL Sodium (137-145) mmol/L Chloride (98-107) mmol/L Carbon Dioxide (22-30) mmol/L BUN (9-20) mg/dL Glucose (74-99) mg/dL POC Glucose (mg/dL) 119 H (75-99) mg/dL Magnesium (1.6-2.3) mg/dL Urine Protein Trace H (Negative) Urine Blood Large H (Negative) Urine RBC >182 H (0-5) /hpf Urine WBC 33 H (0-5) /hpf Urine Mucus Rare H (None) /hpf 06/30/18 06/30/18 06/30/18 Range/Units 04:44 07:20 12:11 RBC (4.30-5.90) m/uL Hgb (13.0-17.5) gm/dL Hct (39.0-53.0) % MCV (80.0-100.0) fL Sodium 150 H (137-145) mmol/L Chloride 112 H (98-107) mmol/L Carbon Dioxide 39 H (22-30) mmol/L BUN 53 H (9-20) mg/dL Glucose 115 H (74-99) mg/dL POC Glucose (mg/dL) 123 H 162 H (75-99) mg/dL Magnesium 2.6 H (1.6-2.3) mg/dL Urine Protein (Negative) Urine Blood (Negative) Urine RBC (0-5) /hpf Urine WBC (0-5) /hpf Urine Mucus (None) /hpf 06/30/18 Range/Units 17:09 RBC (4.30-5.90) m/uL Hgb (13.0-17.5) gm/dL Hct (39.0-53.0) % MCV (80.0-100.0) fL Sodium (137-145) mmol/L Chloride (98-107) mmol/L Carbon Dioxide (22-30) mmol/L BUN (9-20) mg/dL Glucose (74-99) mg/dL POC Glucose (mg/dL) 166 H (75-99) mg/dL Magnesium (1.6-2.3) mg/dL Urine Protein (Negative) Urine Blood (Negative) Urine RBC (0-5) /hpf Urine WBC (0-5) /hpf Urine Mucus (None) /hpf Microbiology - Last 24 Hours (Table) 06/29/18 20:10 Urine Culture - Preliminary Urine,Catheterized 06/24/18 07:31 Blood Culture - Final Blood No Growth after 144 hours 06/24/18 07:31 Blood Culture - Final Blood No Growth after 144 hours 06/28/18 15:55 Urine Culture - Final Urine,Catheterized Assessment and Plan Assessment: Small bilateral pleural effusion likely related to fluid overload Bilateral pneumonia A. fib with rapid ventricular response likely related to above Severe sepsis associated with bilateral pneumonia and septic shock clinically and radiographically continued to improve Acute hypoxic and hypercapnic respiratory failure, Acute COPD exacerbation, Coronary artery disease Pulmonary hypertension likely related to cor pulmonale Altered mental status multifactorial process Hypercapnic hypoxic respiratory failure acute on chronic Advanced dementia and Alzheimer's disease Plan: Lasix IV single dose encourage patient to take by mouth Broad spectrum antibiotics, can be simplified to oral as per ID recommendation Breathing treatments Taper and DC the steroids DVT and peptic ulcer disease prophylaxis Repeat labs x-rays Further recommendations pending plan of care as per clinical response of the patient Time with Patient: Greater than 30
--- NOTE | 2018-06-30 19:28 | P.PN ---
Subjective Progress Note Date: 06/30/18 Principal diagnosis: Bilateral pneumonia, acute hypoxic respiratory failure, atrial fibrillation with rapid ventricular response, generalized weakness and medical debility, severe sepsis and septic shock related to bilateral pneumonia 06/30/2018, patient seen eval examined during the rounds he is awake and alert he remains on supplemental oxygen FiO2 is down to 2 L his oxygen is 90-92% breathing comfortably no obvious distress present denies any chest pain, mental status appears to be back to baseline 06/29/2018, patient seen eval examined during the rounds clinically patient has been doing slightly better respiratory status improved FiO2 is gradually being titrated down currently ranging between 3 and 4 L, saturation is 93%, labs reviewed medications reviewed patient underwent arterial blood gas revealed hypercapnic hypoxic respiratory failure with a stable pH patient has chronic CO2 retention, mental status slightly better now compared to the time of arrival 06/28/2018, patient seen eval reexamined ICU, clinically has been doing fairly well patient is off of anticoagulation he is back in sinus rhythm hemodynamic status stable his labs reviewed medications reviewed, chest x-ray reviewed as well by basilar atelectasis infiltrates are seen slight progression cannot be excluded which likely related to effusion Ammann patient has been on IV fluids KVO him a white cell count is up likely related to steroids, renal functions continued to improve, patient will benefit from IV furosemide we'll give a single dose 06/27/2018, patient seen eval examined during the rounds clinically patient has been doing much better he is on 4 L oxygen sitting upright on the chair he has a chronic retention Foleys which is to be capped he is being evaluated for physical therapy and rehab hemodynamic status remains stable labs reviewed medications reviewed, kidney functions continued to improve, sputum studies failed to reveal any significant finding some dalia was noted, urine and blood cultures have been no growth so far, chest x-ray performed earlier today continue show improvement in infiltrate 06/26/2018, patient seen eval examined during the rounds clinically patient has been doing well he is more awake and alert sitting upright in the bed he is on supplemental oxygen breathing comfortably, he is a slightly bradycardic heart rate ranges from mid 50s to mid 60s blood pressure has been stable, FiO2 slowly being titrated down to 4 L from 5 L home of his urine and sputum and blood culture so far has been negative, chest x-ray performed today reviewed and compared with the prior x-ray stable infiltrate around with baseline COPD a trace effusion cannot be excluded, patient is currently monitoring in ICU for placement in a medical bed on telemetry 06/25/2018, patient seen eval reexamined during the rounds today he remains on supplemental oxygen LK more awake and alert is breathing more comfortably, he remains on supplemental oxygen with 5 L his mental status is improved he is status post echocardiogram results and reports are reviewed patient has a fairly well ejection fraction of 50% however some component of pulmonary hypertension as noted likely multifactorial patient is now off of vasopressors he is tolerating by mouth relatively well he is being changed from IV amiodarone to oral cardiovascular services following blood gases not performed today we'll do a blood gas prior to transfer out of the ICU, labs reviewed medications reviewed radiographic studies reviewed as well critical care time spent 35 minutes 83-year-old male who is a resident of [facility] admitted a large has baseline problems associated with chronic hypoxic respiratory failure end- stage lung disease and severe COPD emphysema patient was noted to be more short of breath and has a confusion and altered mental status and was eventually transferred to [facility] emergency department where he was seen eval reexamined subsequently transferred to the emergency department at [facility] on arrival he was hypotensive treated require crystalloid challenge followed by a vasopressors a central line has been placed by the emergency room physician patient is being placed on the 10 mics of levo fed his blood pressure is now 90/ 60 patient's saturation is 98% on 6 L oxygen, he is awake but the does not give any detailed history he has obvious short leg shortness of breath I reviewed his arterial blood gas performed stat basis he has component of hypercapnia and respiratory acidosis, his chest x-ray revealed COPD-like process of bilateral consolidation along with pleural effusion, pleural effusion appears to be small consolidation is mostly on the basal area central line in his left internal jugular, patient had an episode of A. fib with rapid ventricular response however responded with Cardizem drip and is back to sinus rhythm Objective - Vital Signs Vital signs: Vital Signs Temp 97.7 F 06/30/18 16:00 Pulse 64 06/30/18 16:44 Resp 11 L 06/30/18 16:00 BP 90/52 06/30/18 16:00 Pulse Ox 97 06/30/18 16:00 Intake & Output 06/30/18 06/30/18 07/01/18 06:59 18:59 06:59 Intake Total 190 600 Output Total 355 385 Balance -165 215 Weight 55.2 kg Intake: IV 190 360 Dextrose 5% in Water 1, 150 000 ml @ 50 mls/hr IV . Q20H [facility] Rx#:[id number] Piperacillin-Tazobactam 3 50 50 .375 gm In Dextrose/Water 1 50ml.bag @ 12.5 mls/hr IVPB Q8H [facility] Rx#: [id number] Sodium Chloride 0.9% 1, 140 160 000 ml @ 20 mls/hr IV . Q24H [facility] Rx#:[id number] Oral 240 Output: Urine 355 385 Other: Voiding Method Indwelling Catheter Indwelling Catheter # Bowel Movements 2 1 - Exam - Constitutional General appearance: cooperative, disheveled, mild distress more awake and alert - EENT Eyes: EOMI, PERRLA, poor dentition, normal appearance ENT: hard of hearing, normal oropharynx Ears: bilateral: normal - Neck Neck: normal ROM Carotids: bilateral: upstroke normal Thyroid: bilateral: normal size - Respiratory Respiratory: bilateral: diminished, dullness (Bilateral basis less than one fourth of the lung), rales (Crackles at the bases), rhonchi (Expiratory), wheezing (Bilateral expiratory), prolonged expiration, negative: prolonged inspiration, other, overall improved exam compared to yesterday, however more crackles are present the bases compared to prior exam - Cardiovascular Rhythm: regular Heart sounds: normal: S1, S2 - Gastrointestinal General gastrointestinal: soft - Neurologic Neurologic: CNII-XII intact - Musculoskeletal Musculoskeletal: generalized weakness, strength equal bilaterally - Psychiatric Psychiatric: A&O x's 3 Very slow to respon - Labs CBC & Chem 7: 06/30/18 04:44 06/30/18 04:44 Labs: Abnormal Lab Results - Last 24 Hours (Table) 06/29/18 06/29/18 06/30/18 Range/Units 20:10 20:36 04:44 RBC 3.05 L (4.30-5.90) m/uL Hgb 9.8 L (13.0-17.5) gm/dL Hct 31.6 L (39.0-53.0) % MCV 103.5 H (80.0-100.0) fL Sodium (137-145) mmol/L Chloride (98-107) mmol/L Carbon Dioxide (22-30) mmol/L BUN (9-20) mg/dL Glucose (74-99) mg/dL POC Glucose (mg/dL) 119 H (75-99) mg/dL Magnesium (1.6-2.3) mg/dL Urine Protein Trace H (Negative) Urine Blood Large H (Negative) Urine RBC >182 H (0-5) /hpf Urine WBC 33 H (0-5) /hpf Urine Mucus Rare H (None) /hpf 06/30/18 06/30/18 06/30/18 Range/Units 04:44 07:20 12:11 RBC (4.30-5.90) m/uL Hgb (13.0-17.5) gm/dL Hct (39.0-53.0) % MCV (80.0-100.0) fL Sodium 150 H (137-145) mmol/L Chloride 112 H (98-107) mmol/L Carbon Dioxide 39 H (22-30) mmol/L BUN 53 H (9-20) mg/dL Glucose 115 H (74-99) mg/dL POC Glucose (mg/dL) 123 H 162 H (75-99) mg/dL Magnesium 2.6 H (1.6-2.3) mg/dL Urine Protein (Negative) Urine Blood (Negative) Urine RBC (0-5) /hpf Urine WBC (0-5) /hpf Urine Mucus (None) /hpf 06/30/18 Range/Units 17:09 RBC (4.30-5.90) m/uL Hgb (13.0-17.5) gm/dL Hct (39.0-53.0) % MCV (80.0-100.0) fL Sodium (137-145) mmol/L Chloride (98-107) mmol/L Carbon Dioxide (22-30) mmol/L BUN (9-20) mg/dL Glucose (74-99) mg/dL POC Glucose (mg/dL) 166 H (75-99) mg/dL Magnesium (1.6-2.3) mg/dL Urine Protein (Negative) Urine Blood (Negative) Urine RBC (0-5) /hpf Urine WBC (0-5) /hpf Urine Mucus (None) /hpf Microbiology - Last 24 Hours (Table) 06/29/18 20:10 Urine Culture - Preliminary Urine,Catheterized 06/24/18 07:31 Blood Culture - Final Blood No Growth after 144 hours 06/24/18 07:31 Blood Culture - Final Blood No Growth after 144 hours 06/28/18 15:55 Urine Culture - Final Urine,Catheterized Assessment and Plan Assessment: Small bilateral pleural effusion likely related to fluid overload him a chest x- ray performed yesterday reviewed no significant change has been noted Bilateral pneumonia A. fib with rapid ventricular response likely related to above Severe sepsis associated with bilateral pneumonia and septic shock clinically and radiographically continued to improve Acute on chronic hypoxic and hypercapnic respiratory failure, Acute COPD exacerbation, Coronary artery disease Pulmonary hypertension likely related to cor pulmonale Altered mental status multifactorial process Hypercapnic hypoxic respiratory failure acute on chronic Advanced dementia and Alzheimer's disease Plan: encourage patient to take by mouth Broad spectrum antibiotics, can be simplified to oral as per ID recommendation Breathing treatments Taper and DC the steroids DVT and peptic ulcer disease prophylaxis Reviewed labs and x-ray Further recommendations pending plan of care as per clinical response of the patient Time with Patient: Greater than 30
[2018-06-30 21:05] LABS: Glucose,Whole Blood 176 mg/dL (75-99)
[2018-07-01] MEDS: PIPERACILLIN-TAZOBACTAM 3.375 GM in DEXTROSE/WATER 1 50ML.BAG IVPB SCH ×2 (03:26→12:13)
--- NOTE | 2018-07-01 05:07 | PN ---
PROGRESS NOTE DATE OF SERVICE: 06/30/2018 REASON FOR FOLLOWUP: Pneumonia. INTERVAL HISTORY: The patient is currently afebrile. He has been breathing comfortably. He remains to be slightly lethargic was unable to provide any history. No nausea, vomiting, or any worsening diarrhea. PHYSICAL EXAMINATION: On examination, blood pressure 90/52 with a pulse of 59, temperature 98.2. He is 98% on 3 L nasal cannula. General description is an elderly male lying in bed in no distress. RESPIRATORY SYSTEM: Unlabored breathing with decreased breath sounds at the bases. No wheeze. HEART: S1, S2. Regular rate and rhythm. ABDOMEN: Soft, no tenderness. EXTREMITIES: No edema of the feet. LABS: Hemoglobin 9.8, white count 8.8. BUN of 33, creatinine 1.21. UA has been slightly positive. Stool for C difficile has been negative. Sputum with Amina albicans. DIAGNOSTIC IMPRESSION AND PLAN: Patient admitted to the hospital with difficulty breathing with concern for underlying pneumonia possible gram-negative. Sputum so far has been negative for any resistant pathogen. Patient currently on Zosyn. short course of oral antibiotic on discharge. Continue with supportive care. MMODL / IJN: [id number] /
[2018-07-01 05:45] LABS: HCT 29.9 % (39.0-53.0); HGB 9.5 gm/dL (13.0-17.5); Hypochromasia Slight; MCH 32.8 pg (25.0-35.0); MCHC 31.7 g/dL (31.0-37.0); MCV 103.5 fL (80.0-100.0); Macrocytosis Slight; Mean Platelet Volume 7.8; Platelet Count 163 k/uL (150-450); RBC 2.89 m/uL (4.30-5.90); RDW 12.7 % (11.5-15.5); WBC 8.6 k/uL (3.8-10.6)
[2018-07-01 05:55] LABS: Calcium 9.2 mg/dL (8.4-10.2); Magnesium 2.5 mg/dL (1.6-2.3); Phosphorus 2.7 mg/dL (2.5-4.5); Potassium 3.8 mmol/L (3.5-5.1)
[2018-07-01] MEDS: POTASSIUM CHLORIDE 10 MEQ in WATER FOR INJECTION 1 100ML.BAG IVPB SCH ×2 (06:07→07:13)
[2018-07-01 07:44] LABS: Glucose,Whole Blood 119 mg/dL (75-99)
[2018-07-01] MEDS: INSULIN ASPART 100 UNIT/ML 1 ML 10 ML VIAL SQ SCH ×2 (07:47→12:13)
[2018-07-01] MEDS: BUDESONIDE 0.5 MG/2 ML NEBU INHALATION SCH (08:04)
[2018-07-01] MEDS: IPRATROPIUM-ALBUTEROL 3 ML NEB INHALATION SCH ×2 (08:04→12:10)
[2018-07-01] MEDS: methylPREDNISolone 4 MG TAB TAPER PO SCH (08:30)
[2018-07-01] MEDS: PANTOPRAZOLE 40 MG TABLET PO SCH (08:30)
[2018-07-01] MEDS: AMIODARONE 200 MG TAB PO SCH (08:30)
[2018-07-01] MEDS: ASPIRIN 325 MG TAB PO SCH (08:30)
--- NOTE | 2018-07-01 10:30 | P.DS ---
Providers Date of admission: 06/24/18 05:08 Expected date of discharge: 07/01/18 Attending physician: Jordan Zamudio Consults: 06/24/18 05:14 Consult Physician Urgent Consulting Provider: Michael Mccloud Consult Reason/Comments: your patient Do you want consulting provider notified?: Already Contacted 06/24/18 05:16 Consult Physician Urgent Consulting Provider: Antonio Ferrer Consult Reason/Comments: Pneumonia Do you want consulting provider notified?: Yes 06/24/18 06:17 Consult Physician Urgent Consulting Provider: J Carlos Marti Consult Reason/Comments: Atrial fibrillation with rapid ventricular rate. Do you want consulting provider notified?: Yes 06/24/18 08:39 Consult Physician Urgent Consulting Provider: Manuel Carver Consult Reason/Comments: septic shock Do you want consulting provider notified?: Already Contacted 06/26/18 17:48 Consult Physician Routine Consulting Provider: Rodney Hernandez Consult Reason/Comments: Rehabilitation Do you want consulting provider notified?: Yes 06/28/18 11:38 Consult Physician Urgent Consulting Provider: Claudia Daniel Consult Reason/Comments: Mental status change, confusion Do you want consulting provider notified?: Yes Primary care physician: Jordan Zamudio Hospital Course: This is an 83-year old male with a past medical history of CHF, COPD, chronic kidney disease stage III, and chronic respiratory failure. The patient presented to [facility] with respiratory distress, from there he was transferred to [facility]. He is found to have bilateral pneumonia. Patient is quite confused and a very poor historian. While in the emergency department did go into A.fib with RVR and did have significant hypotension. He required a central line and vasopressors were started at 10mcg/min. His chest xray revealed COPD as well as bilateral pneumonia. ABG showed a PH of 7.3, pCO2 58, pO2 68, HCO3 of 30, consistent with hypercapnia, hypoxia and respiratory acidosis. He was started on Cardizem IV, he did converted to normal sinus rhythm , Cardizem was discontinued and he was started on Amiodarone and a heparin infusion. Blood and sputum cultures were obtained, he was started on Levofloxacin, Zosyn, and Vancomycin and transferred to the ICU unit. 06/25: Patient remains in the intensive care unit and has been hemodynamically stable. Blood pressure is on the low side. He is in a sinus rhythm. IV amiodarone has been discontinued and started oral by Dr. Marti. Patient remains on heparin drip. Patient is also followed by pulmonary medicine. He has been off norepinephrine since [address] Carver has cleared him for transfer out of the intensive care unit. He is currently on Levaquin, Zosyn and vancomycin. Dr. Bedoya is on consult. Solu-Medrol is at 40 mg every 12 hours. Patient is very concerned that he does not have his hearing aids or dentures. CODE STATUS has been clarified with daughter and son which is DO NOT RESUSCITATE. Patient continues to have mild confusion. 06/26: Patient remains in the intensive care unit waiting for bed. Patient states he has intermittent episodes of trouble breathing and is bringing up sputum. Sputum cultures in progress. He does complain of dry mouth but is on humidified oxygen. His heart rate has been running in the 50s and 60s with blood pressure on the lower side for which amiodarone was decreased to 200 mg twice daily by Dr. boston. He has been afebrile. Patient continues to have mild confusion. 06/27: Patient remains in the intensive care unit waiting for a medical bed. He has been seen by Dr. Hernandez and most likely patient will be returning to his [facility] where he came from. Patient had repeat chest x-ray that shows increased aeration. Patient was determined to not be anticoagulation candidate as he is high risk for fall. He has been started on aspirin. He remains in sinus rhythm and continued on oral amiodarone. Echocardiogram reveals EF 50-55% with mild concentric left ventricular hypertrophy, mild mitral and tricuspid regurgitation, mild pulmonary hypertension. Patient walked a couple steps with physical therapy. Patient is somewhat more confused from yesterday. Peck catheter remains in place draining clear urine, adequate amounts. 06/28: Patient has been declining steadily with mental status as currently he is alert and oriented only 0 patient is not following commands mumbling some warts but does not follow commands and difficult to reorient. Plan discussed with nursing staff at the bedside and family members as well and patient will have CT scan done to rule out any intracranial process we will optimize medical management and consider swallow evaluation upon return from CT scan. Patient with guarded prognosis 06/29:Patient continued to be at baseline mental status where he is confused does not follow commands was some improvement since yesterday but still minimal. Stat blood gases was performed and showed elevated CO2. Patient is currently following simple commands but still difficult to reorient I would like to apply BiPAP for 4 hours and repeat blood gases. I would like to optimize his medical management and continue supportive care. We'll follow up with neurology recommendation regarding his current condition. Showed patient become unresponsive consideration for intubation to secure airways should be considered. Plan discussed with nursing staff at the bedside Prognosis remained guarded 06/30: Patient is currently on 4 L nasal cannula and pulse oxing 95%. Stool for C. diff was negative. Patient apparently was disimpacted and following that had loose stools but not true diarrhea. Noted sodium is up 250 with chloride of 112, CO2 39. BUN 53 and creatinine 1.21. Hemoglobin is 9.8. Capillary blood glucose running between 119 162. Magnesium was 2.6. Patient remains waiting for bed on the [facility] floor. Patient continues to have confusion. CAT scan of the brain showed no acute intracranial abnormalities. EEG report is pending. Anticipate possible discharge tomorrow back to his [facility]. 07/01: EEG is abnormal due to presence of generalized slowing of the background rhythm mostly in the theta range consistent with mild encephalopathy. No epileptiform discharges seen. Patient remains in the intensive care unit waiting for [facility] bed. He ate 25% of his breakfast and 50% of the supplement this morning. He is reaching 1500 on incentive spirometry. Chronic peck catheter remains in place and will be exchanged prior to discharge. He did have Vlad soft bowel movement this morning. potline monitor is a sinus bradycardia. Patient does continue to have mild confusion but cooperative. Hemoglobin is 9.5, white count is normal, sodium 146, CO2 39, BUN 46 and creatinine 1.04. Capillary blood glucose running between 119 and 176. He has chronically low appetite and will be resumed on remeron at [facility]. Family state that he has had confusion for the past month. Patient has been cleared for discharge by all consultants. The patient will be discharged back to [facility] today in stable condition. Discharge diagnoses: 1. Acute hypercapnic hypoxic respiratory failure on chronic respiratory failure secondary to COPD and bilateral pneumonia. 2. Septic shock secondary to gram-negative pneumonia. 3. Acute COPD exacerbation. 4. A.Fib with RVR with paroxysmal atrial fibrillation currently in sinus rhythm. 5. Cachexia with severe protein calorie malnutrition with BMI of 19. 6. Hypertension. 7. Hyperlipidemia. Discharge plan: Return to [facility] Impression and plan of care have been directed as dictated by the signing physician. Roxanna Gan nurse practitioner acting as scribe for signing physician. Patient Condition at Discharge: Good Plan - Discharge Summary Discharge Rx Participant: No New Discharge Prescriptions: New Moxifloxacin HCl [Avelox] 400 mg PO DAILY #5 tablet Amiodarone [Cordarone] 200 mg PO BID tab Aspirin 325 mg PO DAILY tab Docusate [Colace] 100 mg PO DAILY #30 capsule methylPREDNISolone Dose Pack [Medrol Dose Pack] 12 mg PO DAILY tab Continue Montelukast [Singulair] 10 mg PO HS Mirtazapine [Remeron] 15 mg PO HS Famotidine [Pepcid] 20 mg PO DAILY Budesonide [Pulmicort] 0.5 mg INHALATION RT-DAILY Citalopram Hydrobromide [CeleXA] 20 mg PO DAILY Atorvastatin [Lipitor] 40 mg PO HS Ammonium Lactate Lotion [Lac-Hydrin 12% Lotion] 1 applic TOPICAL HS Ipratropium-Albuterol Nebulize [Duoneb 0.5 mg-3 mg/3 ml Soln] 3 ml INHALATION RT-QID Changed Lisinopril [Zestril] 2.5 mg PO HS #0 Spironolactone [Aldactone] 25 mg PO HS #0 Discontinued Metoprolol Succinate [Toprol XL] 25 mg PO DAILY Finasteride [Proscar] 5 mg PO DAILY Tamsulosin [Flomax] 0.4 mg PO DAILY Lactulose 20 gm PO BID@0800,2000 Clopidogrel [Plavix] 75 mg PO HS Acetaminophen with Codeine [Tylenol w/codeine #3] 1 tab PO Q4H PRN PRN Reason: Pain ALPRAZolam [Xanax] 0.25 mg PO TID PRN PRN Reason: Anxiety Furosemide [Lasix] 40 mg PO BID@0600,1200 Discharge Medication List Ammonium Lactate Lotion [Lac-Hydrin 12% Lotion] 1 applic TOPICAL HS 06/24/18 [ History] Atorvastatin [Lipitor] 40 mg PO HS 06/24/18 [History] Budesonide [Pulmicort] 0.5 mg INHALATION RT-DAILY 06/24/18 [History] Citalopram Hydrobromide [CeleXA] 20 mg PO DAILY 06/24/18 [History] Famotidine [Pepcid] 20 mg PO DAILY 06/24/18 [History] Ipratropium-Albuterol Nebulize [Duoneb 0.5 mg-3 mg/3 ml Soln] 3 ml INHALATION RT -QID 06/24/18 [History] Mirtazapine [Remeron] 15 mg PO HS 06/24/18 [History] Montelukast [Singulair] 10 mg PO HS 06/24/18 [History] Amiodarone [Cordarone] 200 mg PO BID tab 07/01/18 [Rx] Aspirin 325 mg PO DAILY tab 07/01/18 [Rx] Docusate [Colace] 100 mg PO DAILY #30 capsule 07/01/18 [Rx] Lisinopril [Zestril] 2.5 mg PO HS #0 07/01/18 [Rx] Moxifloxacin HCl [Avelox] 400 mg PO DAILY #5 tablet 07/01/18 [Rx] Spironolactone [Aldactone] 25 mg PO HS #0 07/01/18 [Rx] methylPREDNISolone Dose Pack [Medrol Dose Pack] 12 mg PO DAILY tab 07/01/18 [Rx ] Follow up Appointment(s)/Referral(s): None,Stated [REFERRING] - 1-2 days Michael Mccloud MD [STAFF PHYSICIAN] - 1 Week Discharge Disposition: TRANSFER TO SNF/ECF
[2018-07-01 10:47] VITALS: BMI 19.1
[2018-07-01 12:07] LABS: Glucose,Whole Blood 142 mg/dL (75-99)
[2018-07-01 12:09] VITALS: BP 118/55; RESP 23; TEMP 97.7
[2018-07-01 12:22] VITALS: PULSE 56
--- NOTE | 2018-07-01 15:13 | PN ---
PROGRESS NOTE DATE OF SERVICE: 07/01/2018 REASON FOR FOLLOWUP: Pneumonia, possible gram-negative. INTERVAL HISTORY: The patient is currently afebrile. He seems to be feeling better. Breathing more comfortably. He did have some cough but not bringing up any sputum. No chest pain. No abdominal pain or any worsening diarrhea. PHYSICAL EXAMINATION: Blood pressure is 118/55 with a pulse of 55, temperature is 97.7, he is 98% on 2 L nasal cannula. General description is an elderly male, lying in bed in no distress. RESPIRATORY SYSTEM: Unlabored breathing with decreased breath sounds at bases, no wheeze. HEART: S1, S2. Regular rate and rhythm. ABDOMEN: Soft, no tenderness. LABS: Hemoglobin 9.5, white count 8.2, BUN of 46, creatinine 1.04. DIAGNOSTIC IMPRESSION AND PLAN: Patient admitted to the hospital with sepsis. Source is pneumonia with concern for possible gram-negative. He received about 7 days of Zosyn. Will give a short course of oral Avelox on discharge with close outpatient followup. Continue supportive care. MMODL / IJN: [id number] /
--- NOTE | 2018-07-01 15:32 | P.PN ---
Subjective Progress Note Date: 07/01/18 Patient is a pleasant 83-year-old male who is being followed by the neurology service for altered mental status. Patient resides at [facility] and was brought to [facility] as a transfer from [facility]. Patient was brought to Hospital with symptoms of respiratory distress. Patient was found to have bilateral pneumonia. Patient was quite confused on admission and did have significant hypotension. Patient is much improved and is due to be transferred back to [facility] today. Patient' s altered mental status has resolved. As you recall, CT of the brain showed no acute intracranial abnormalities. EEG showed mild encephalopathy. At the time of my evaluation, patient is resting comfortably in bed and appears to be in no acute distress. Objective - Vital Signs Vital signs: Vital Signs Temp 97.7 F 07/01/18 12:00 Pulse 56 L 07/01/18 12:21 Resp 23 07/01/18 12:00 BP 118/55 07/01/18 12:00 Pulse Ox 98 07/01/18 12:00 Intake & Output 06/30/18 07/01/18 07/01/18 18:59 06:59 18:59 Intake Total 600 650 Output Total 385 475 Balance 215 175 Weight 55.2 kg Intake: IV 360 650 Dextrose 5% in Water 1, 150 500 000 ml @ 50 mls/hr IV . Q20H ONE Rx#:[id number] Piperacillin-Tazobactam 3 50 50 .375 gm In Dextrose/Water 1 50ml.bag @ 12.5 mls/hr IVPB Q8H COUNT INCLUDES THE [facility] Rx#: [id number] Potassium Chloride 10 meq 100 In Water For Injection 1 100ml.bag @ 100 mls/hr IVPB Q1H RITIKA Rx#: [id number] Sodium Chloride 0.9% 1, 160 000 ml @ 20 mls/hr IV . Q24H RITIKA Rx#:[id number] Oral 240 Output: Urine 385 475 Other: Voiding Method Indwelling Catheter Indwelling Catheter Indwelling Catheter # Bowel Movements 1 - Exam PHYSICAL EXAM: GENERAL APPEARANCE: Patient is a thin, male who appears to be in no acute distress. HEENT: Normocephalic, atraumatic, no facial asymmetry is seen. Neck is supple with no masses felt. CARDIOVASCULAR: Regular rate and rhythm. ABDOMEN: Nontender, nondistended. EXTREMITIES: Show no edema or clubbing. NEUROLOGICAL EXAM: Patient is awake, alert, and oriented 3. Speech and language are normal. Patient is very hard of hearing. Strength is 5-/5 in all 4 extremities. No facial asymmetry is seen on cranial nerve testing. Sensory exam is normal to light touch in all 4 extremities. No seizures or tremors noted. - Labs CBC & Chem 7: 07/01/18 05:15 07/01/18 05:15 Labs: Abnormal Lab Results - Last 24 Hours (Table) 06/30/18 06/30/18 07/01/18 Range/Units 17:09 20:40 05:15 RBC 2.89 L (4.30-5.90) m/uL Hgb 9.5 L (13.0-17.5) gm/dL Hct 29.9 L (39.0-53.0) % MCV 103.5 H (80.0-100.0) fL Sodium (137-145) mmol/L Carbon Dioxide (22-30) mmol/L BUN (9-20) mg/dL Glucose (74-99) mg/dL POC Glucose (mg/dL) 166 H 176 H (75-99) mg/dL Magnesium (1.6-2.3) mg/dL 07/01/18 07/01/18 07/01/18 Range/Units 05:15 07:30 12:05 RBC (4.30-5.90) m/uL Hgb (13.0-17.5) gm/dL Hct (39.0-53.0) % MCV (80.0-100.0) fL Sodium 146 H (137-145) mmol/L Carbon Dioxide 39 H (22-30) mmol/L BUN 46 H (9-20) mg/dL Glucose 130 H (74-99) mg/dL POC Glucose (mg/dL) 119 H 142 H (75-99) mg/dL Magnesium 2.5 H (1.6-2.3) mg/dL Microbiology - Last 24 Hours (Table) 06/29/18 20:10 Urine Culture - Final Urine,Catheterized Assessment and Plan (1) Altered mental status Current Visit: Yes Status: Acute Code(s): R41.82 - ALTERED MENTAL STATUS, UNSPECIFIED SNOMED Code(s): 614010386 (2) Pneumonia Current Visit: Yes Status: Acute Code(s): J18.9 - PNEUMONIA, UNSPECIFIED ORGANISM SNOMED Code(s): 355836946 (3) Respiratory failure Current Visit: Yes Status: Acute Code(s): J96.90 - RESPIRATORY FAILURE, UNSP , UNSP W HYPOXIA OR HYPERCAPNIA SNOMED Code(s): 266968277 (4) Sepsis Current Visit: Yes Status: Acute Code(s): A41.9 - SEPSIS, UNSPECIFIED ORGANISM SNOMED Code(s): 15268035 (5) Dementia Current Visit: Yes Status: Chronic Code(s): F03.90 - UNSPECIFIED DEMENTIA WITHOUT BEHAVIORAL DISTURBANCE SNOMED Code(s): 69256554 Plan: Recommendation: Patient's altered mental status has improved. Patient is appropriate with answers. It appears patient is back to baseline. As mentioned above, computed tomography scan of the brain showed no acute intracranial abnormalities. EEG did show mild encephalopathy. Patient is stable from a neurological standpoint for transfer back to [facility]. I will continue to follow with you on an as-needed basis. Feel free to call with any questions or concerns.
--- NOTE | 2018-07-01 17:47 | P.PN ---
Subjective Progress Note Date: 07/01/18 Principal diagnosis: Bilateral pneumonia, acute hypoxic respiratory failure, atrial fibrillation with rapid ventricular response, generalized weakness and medical debility, severe sepsis and septic shock related to bilateral pneumonia 07/01/2018, patient seen eval examined during the rounds clinically patient is doing well in terms of breathing cuff congestion shortness of breath is stable and improved confusion has improved as well and discussed with the staff 06/30/2018, patient seen eval examined during the rounds he is awake and alert he remains on supplemental oxygen FiO2 is down to 2 L his oxygen is 90-92% breathing comfortably no obvious distress present denies any chest pain, mental status appears to be back to baseline 06/29/2018, patient seen eval examined during the rounds clinically patient has been doing slightly better respiratory status improved FiO2 is gradually being titrated down currently ranging between 3 and 4 L, saturation is 93%, labs reviewed medications reviewed patient underwent arterial blood gas revealed hypercapnic hypoxic respiratory failure with a stable pH patient has chronic CO2 retention, mental status slightly better now compared to the time of arrival 06/28/2018, patient seen eval reexamined ICU, clinically has been doing fairly well patient is off of anticoagulation he is back in sinus rhythm hemodynamic status stable his labs reviewed medications reviewed, chest x-ray reviewed as well by basilar atelectasis infiltrates are seen slight progression cannot be excluded which likely related to effusion Ammann patient has been on IV fluids KVO him a white cell count is up likely related to steroids, renal functions continued to improve, patient will benefit from IV furosemide we'll give a single dose 06/27/2018, patient seen eval examined during the rounds clinically patient has been doing much better he is on 4 L oxygen sitting upright on the chair he has a chronic retention Foleys which is to be capped he is being evaluated for physical therapy and rehab hemodynamic status remains stable labs reviewed medications reviewed, kidney functions continued to improve, sputum studies failed to reveal any significant finding some dalia was noted, urine and blood cultures have been no growth so far, chest x-ray performed earlier today continue show improvement in infiltrate 06/26/2018, patient seen eval examined during the rounds clinically patient has been doing well he is more awake and alert sitting upright in the bed he is on supplemental oxygen breathing comfortably, he is a slightly bradycardic heart rate ranges from mid 50s to mid 60s blood pressure has been stable, FiO2 slowly being titrated down to 4 L from 5 L home of his urine and sputum and blood culture so far has been negative, chest x-ray performed today reviewed and compared with the prior x-ray stable infiltrate around with baseline COPD a trace effusion cannot be excluded, patient is currently monitoring in ICU for placement in a medical bed on telemetry 06/25/2018, patient seen eval reexamined during the rounds today he remains on supplemental oxygen LK more awake and alert is breathing more comfortably, he remains on supplemental oxygen with 5 L his mental status is improved he is status post echocardiogram results and reports are reviewed patient has a fairly well ejection fraction of 50% however some component of pulmonary hypertension as noted likely multifactorial patient is now off of vasopressors he is tolerating by mouth relatively well he is being changed from IV amiodarone to oral cardiovascular services following blood gases not performed today we'll do a blood gas prior to transfer out of the ICU, labs reviewed medications reviewed radiographic studies reviewed as well critical care time spent 35 minutes 83-year-old male who is a resident of [facility] care facility admitted a large has baseline problems associated with chronic hypoxic respiratory failure end- stage lung disease and severe COPD emphysema patient was noted to be more short of breath and has a confusion and altered mental status and was eventually transferred to [facility] emergency department where he was seen eval reexamined subsequently transferred to the emergency department at [facility] on arrival he was hypotensive treated require crystalloid challenge followed by a vasopressors a central line has been placed by the emergency room physician patient is being placed on the 10 mics of levo fed his blood pressure is now 90/ 60 patient's saturation is 98% on 6 L oxygen, he is awake but the does not give any detailed history he has obvious short leg shortness of breath I reviewed his arterial blood gas performed stat basis he has component of hypercapnia and respiratory acidosis, his chest x-ray revealed COPD-like process of bilateral consolidation along with pleural effusion, pleural effusion appears to be small consolidation is mostly on the basal area central line in his left internal jugular, patient had an episode of A. fib with rapid ventricular response however responded with Cardizem drip and is back to sinus rhythm Objective - Vital Signs Vital signs: Vital Signs Temp 97.7 F 07/01/18 12:00 Pulse 56 L 07/01/18 12:21 Resp 23 07/01/18 12:00 BP 118/55 07/01/18 12:00 Pulse Ox 98 07/01/18 12:00 Intake & Output 06/30/18 07/01/18 07/01/18 18:59 06:59 18:59 Intake Total 600 650 Output Total 385 475 350 Balance 215 175 -350 Weight 55.2 kg Intake: IV 360 650 Dextrose 5% in Water 1, 150 500 000 ml @ 50 mls/hr IV . Q20H [facility] Rx#:[id number] Piperacillin-Tazobactam 3 50 50 .375 gm In Dextrose/Water 1 50ml.bag @ 12.5 mls/hr IVPB Q8H [facility] Rx#: [id number] Potassium Chloride 10 meq 100 In Water For Injection 1 100ml.bag @ 100 mls/hr IVPB Q1H [facility] Rx#: [id number] Sodium Chloride 0.9% 1, 160 000 ml @ 20 mls/hr IV . Q24H [facility] Rx#:[id number] Oral 240 Output: Urine 385 475 350 Other: Voiding Method Indwelling Catheter Indwelling Catheter Indwelling Catheter # Bowel Movements 1 - Exam - Constitutional General appearance: cooperative, disheveled, mild distress more awake and alert - EENT Eyes: EOMI, PERRLA, poor dentition, normal appearance ENT: hard of hearing, normal oropharynx Ears: bilateral: normal - Neck Neck: normal ROM Carotids: bilateral: upstroke normal Thyroid: bilateral: normal size - Respiratory Respiratory: bilateral: diminished, dullness (Bilateral basis less than one fourth of the lung), rales (Crackles at the bases), rhonchi (Expiratory), wheezing (Bilateral expiratory), prolonged expiration, negative: prolonged inspiration, other, overall improved exam compared to yesterday, however more crackles are present the bases compared to prior exam - Cardiovascular Rhythm: regular Heart sounds: normal: S1, S2 - Gastrointestinal General gastrointestinal: soft - Neurologic Neurologic: CNII-XII intact - Musculoskeletal Musculoskeletal: generalized weakness, strength equal bilaterally - Psychiatric Psychiatric: A&O x's 3 Very slow to respon - Labs CBC & Chem 7: 07/01/18 05:15 07/01/18 05:15 Labs: Abnormal Lab Results - Last 24 Hours (Table) 06/30/18 07/01/18 07/01/18 Range/Units 20:40 05:15 05:15 RBC 2.89 L (4.30-5.90) m/uL Hgb 9.5 L (13.0-17.5) gm/dL Hct 29.9 L (39.0-53.0) % MCV 103.5 H (80.0-100.0) fL Sodium 146 H (137-145) mmol/L Carbon Dioxide 39 H (22-30) mmol/L BUN 46 H (9-20) mg/dL Glucose 130 H (74-99) mg/dL POC Glucose (mg/dL) 176 H (75-99) mg/dL Magnesium 2.5 H (1.6-2.3) mg/dL 07/01/18 07/01/18 Range/Units 07:30 12:05 RBC (4.30-5.90) m/uL Hgb (13.0-17.5) gm/dL Hct (39.0-53.0) % MCV (80.0-100.0) fL Sodium (137-145) mmol/L Carbon Dioxide (22-30) mmol/L BUN (9-20) mg/dL Glucose (74-99) mg/dL POC Glucose (mg/dL) 119 H 142 H (75-99) mg/dL Magnesium (1.6-2.3) mg/dL Microbiology - Last 24 Hours (Table) 06/29/18 20:10 Urine Culture - Final Urine,Catheterized Assessment and Plan Assessment: Small bilateral pleural effusion likely related to fluid overload him a chest x- ray performed yesterday reviewed no significant change has been noted Bilateral pneumonia A. fib with rapid ventricular response likely related to above Severe sepsis associated with bilateral pneumonia and septic shock clinically and radiographically continued to improve Acute on chronic hypoxic and hypercapnic respiratory failure, Acute COPD exacerbation, Coronary artery disease Pulmonary hypertension likely related to cor pulmonale Altered mental status multifactorial process Hypercapnic hypoxic respiratory failure acute on chronic Advanced dementia and Alzheimer's disease Plan: encourage patient to take by mouth Broad spectrum antibiotics, can be simplified to oral as per ID recommendation Breathing treatments Taper and DC the steroids DVT and peptic ulcer disease prophylaxis Reviewed labs and x-ray Further recommendations pending plan of care as per clinical response of the patient Time with Patient: Greater than 30
== END 2018-07-01 16:16 | DRG 871 ==
LOC: EC 04:43 → 4MS4W 05:08 → 3SCARD 07:22 → 2SICU 09:18
PROVIDERS: ADMIT Internal Medicine; ATTEND Internal Medicine
PROC: 05HN33Z Insertion of Infusion Device into Left Internal Jugular Vein, Percutaneous Approach (ICD-10-PCS; principal; 2018-06-24)
PROC: 5A09457 Assistance with Respiratory Ventilation, 24-96 Consecutive Hours, Continuous Positive Airway Pressure (ICD-10-PCS; 2018-06-27)
DX: A41.50 Gram-negative sepsis, unspecified (principal); E43 Unspecified severe protein-calorie malnutrition; G93.41 Metabolic encephalopathy; J15.6 Pneumonia due to other Gram-negative bacteria; J96.21 Acute and chronic respiratory failure with hypoxia; J96.02 Acute respiratory failure with hypercapnia; R65.21 Severe sepsis with septic shock; E87.2 Acidosis; J44.0 Chronic obstructive pulmonary disease with (acute) lower respiratory infection; J44.1 Chronic obstructive pulmonary disease with (acute) exacerbation; J98.11 Atelectasis; R64 Cachexia; J90 Pleural effusion, not elsewhere classified; Z68.1 Body mass index [BMI] 19.9 or less, adult; I27.29 Other secondary pulmonary hypertension; I27.81 Cor pulmonale (chronic); I48.0 Paroxysmal atrial fibrillation; J84.10 Pulmonary fibrosis, unspecified; I08.1 Rheumatic disorders of both mitral and tricuspid valves; D63.8 Anemia in other chronic diseases classified elsewhere; E78.5 Hyperlipidemia, unspecified; F02.80 Dementia in other diseases classified elsewhere, unspecified severity, without behavioral disturbance, psychotic disturbance, mood disturbance, and anxiety; G30.9 Alzheimer's disease, unspecified; I13.10 Hypertensive heart and chronic kidney disease without heart failure, with stage 1 through stage 4 chronic kidney disease, or unspecified chronic kidney disease; N18.3 Chronic kidney disease, stage 3 (moderate); I25.10 Atherosclerotic heart disease of native coronary artery without angina pectoris; H91.90 Unspecified hearing loss, unspecified ear; T38.0X5A Adverse effect of glucocorticoids and synthetic analogues, initial encounter; F32.9 Major depressive disorder, single episode, unspecified; F41.9 Anxiety disorder, unspecified; R19.7 Diarrhea, unspecified; N40.0 Benign prostatic hyperplasia without lower urinary tract symptoms; I71.4 Abdominal aortic aneurysm, without rupture; Z98.42 Cataract extraction status, left eye; Z98.41 Cataract extraction status, right eye; Z96.1 Presence of intraocular lens; Z95.5 Presence of coronary angioplasty implant and graft; Z87.891 Personal history of nicotine dependence; Z86.73 Personal history of transient ischemic attack (TIA), and cerebral infarction without residual deficits; Z79.02 Long term (current) use of antithrombotics/antiplatelets; Z79.899 Other long term (current) drug therapy; Z66 Do not resuscitate; Z82.3 Family history of stroke; Z82.61 Family history of arthritis
CPT/HCPCS: 36556; 36600; 70450; 71045; 80048; 80053; 80202; 81001; 82140; 82533; 82805; 83036; 83605; 83735; 84100; 84132; 85025; 85027; 85610; 85730; 87040; 87070; 87086; 87205; 87324; 87502; 93005; 93306; 94640; 94660; 95816; 96361; 96365; 96366; 96368; 96372; 96376; 99285